=== PATIENT | male | born 1955 | race Caucasian/White ===

== ENCOUNTER 2017-01-20 11:42 | Inpatient (IN) ==
--- NOTE | 2017-01-20 12:43 | Emergency Department Note ---
Disposition Clinical Impression: Hyponatremia, Hyperbilirubinemia Ascites Qualifiers: Ascites type: other type Qualified Code(s): R18.8 - Other ascites Disposition: Admitted As Inpatient Condition: Critical SOB HPI - General Chief Complaint: ED Shortness of Breath/Dyspnea Stated Complaint: SOB, Fluid overload, weakness Time Seen by Provider: 01/20/17 12:23 Source: patient, family Limitations: no limitations Nursing Notes Reviewed: Yes Vital Signs Reviewed: Yes - History of Present Illness 61-year-old male with history of 6 beers per day drinking, presents with shortness of breath and abdominal swelling, also states he has bilateral lower extremity swelling. He states he has had worsening symptoms for the last 1 week. Denies fever chills shortness, weight loss, or chest pain. States that he may have gained 5 pounds in the last few weeks. Patient has no history of hepatitis that he knows of. He denies history of alcoholism but does report that he drinks daily. Denies hematuria dysuria, hematochezia or melenic stools. Pt Subjective Complaint: shortness of breath Onset (ago): week(s) (1) Context: recent illness Severity: mild Consistency/Duration: constant Improves with: nothing Worsens with: nothing - Related Data Home Medications Medication Instructions Recorded Confirmed Escitalopram [Lexapro] 20 mg PO DAILY 01/20/17 01/20/17 Losartan [Cozaar] 25 mg PO DAILY 01/20/17 01/20/17 Omeprazole [PriLOSEC] 40 mg PO DAILY 01/20/17 01/20/17 Thiamine HCl [Vitamin B-1] 50 mg PO DAILY 01/20/17 01/20/17 Allergies Allergy/AdvReac Type Severity Reaction Status Date / Time No Known Allergies Allergy Verified 08/21/16 11:02 Review of Systems: All systems were reviewed with historian and negative except as per below, or as documented in the HPI. Constitutional: Denies: fever, chills, weight changes CV: Denies: chest pain, palpitations, leg swelling Resp: Positive for dyspnea, negative for wheezes or hemoptysis GI: Acid for abdominal pain and abdominal swelling, positive for nausea, denies hematochezia denies melena Denies: dysuria, hematuria MSK: Denies: back pain, neck pain, extremity pain Skin: Denies: new rashes, new lesions Neuro: Denies: MOTT, weakness All systems ED: reviewed and negative except as stated. Past Medical History - Past Medical History Attestation: Yes The following information was validated with the patient. Source: patient Medical history: Reports: GERD, hyperlipidemia, hypertension Psychiatric history: Reports: anxiety, depression - Social History Smoking Status: Current every day smoker Smokeless Tobacco Status: No Alcohol use: Reports: heavy Drug use: Reports: none Physical Exam Constitutional: Middle-aged male appears older than stated age, in no acute distress, HEENT: NCAT, sclera icteric, PERRLA bilaterally, normal external ears bilaterally, nasal septum nondeviated, average dentition, MMM Neck: normal inspection, neck is supple, trachea midline, no JVD Resp: Breath sounds at the bases bilaterally CV: RRR, no m/g/r, Pulses +2 Rad, +2 DP/PT bilaterally, +3 pitting edema bilateral lower extremities. GI: Abdomen is severely distended, tympanic on percussion, hypoactive bowel sounds, mild tenderness to palpation diffusely. No rigidity or guarding. Back: Negative for flank pain bilaterally. Neuro: A&O3, CN II-XII grossly intact bilaterally, no gross motor or sensory deficits bilaterally MSK: normal inspection, bilateral UE and LE with normal ROM and no deformities Psych: normal mood, normal affect Skin: Evidence of bilateral erythematous venous stasis dermatitis/cellulitis, left leg greater than right leg. - General Limitations: no limitations General appearance: alert Course Course Narrative: 61-year-old male with acute onset over the last week of abdominal swelling and bilateral lower extremity swelling, suspect ascites from alcoholism, we will get hepatitis profile as well as hepatic panel, basic lab work EKG chest x-ray CT scan of abdomen. - Reevaluation(s) Reevaluation #1: Patient had severe hyponatremia with a sodium of 107, I didcall Dr. Duke, and he recommended placement of central line to start hypertonic saline, as well as give 40 mg IV Lasix. Reevaluation #2: CVC was placed successfully, post procedure chest x-ray confirms good placement , Dr. Duke and Dr. Singh did evaluate the patient at bedside, and agreed with the management plan, orders are placed with Dr. Duke for trending sodium every 2 hours, also for the hypertonic saline disorder was placed by Dr. smith, Dr. Pedraza agreed that they warranted ICU management at this time. Patient is currently stable time of ED disposition, we will get a CT scan in route to ICU Time: 15:45 Vital Signs Temperature 97.4 F L 01/20/17 12:16 Pulse Rate 93 01/20/17 12:16 Respiratory Rate 18 01/20/17 12:16 Blood Pressure 103/71 01/20/17 12:16 O2 Sat by Pulse Oximetry 100 01/20/17 12:16 Temperature 97.4 F L 01/20/17 12:16 Pulse Rate 84 01/20/17 13:39 Respiratory Rate 18 01/20/17 15:55 Blood Pressure 107/68 01/20/17 15:55 O2 Sat by Pulse Oximetry 100 01/20/17 13:39 Oxygen Delivery Oxygen Delivery Room Air Procedures - Central Line Placement Right IJ Central Line Inserted*: Yes Central Line Catheter Replacement*: Yes Central Line Insertion: emergent Consent Obtained: verbal consent Patient Placed on Monitor/Pulse Ox: Yes During the Procedure: clinician is wearing sterile gloves, cap, mask,& gown during insertion, sterile field and sterile technique are maintained, patient's face is covered with drape or mask and wearing a cap, everyone in room is wearing a mask Central Line Prep: Chlorhexidine scrub Prep the Procedure Site: apply chloraprep to the skin using a back and forth scrubbing motion, apply chloraprep for 30 seconds (upper body), 1-2 min ( femoral sites), drape the patient with a full body drape Local Anesthetic: lidocaine 1% Amount of anesthesia used (mL): 3 Ultrasound Used for Placement: Yes Central Line Lumen Inserted: triple Post Procedure: sutured in place, good blood return, all ports aspirated, flushed, capped, sterile dressing applied, guide wire removed and visualized, dressing is dated Post Procedure X-Ray: tip of catheter in good position, no pneumothorax seen Patient Tolerated Procedure: well, no complications Complications: none Name of Clinician Inserting Central Line: Dr. 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 - Differential Diagnosis Likely: congestive heart failure, pneumonia - Medical Records Medical records reviewed: Yes I reviewed the patient's medical records. - Lab Data Lab results reviewed: Yes I reviewed the patient's lab results. Result diagrams: 01/20/17 13:03 01/20/17 13:03 Lab Results 01/20/17 01/20/17 01/20/17 Range/Units 12:55 13:03 13:03 WBC 7.6 (4.3-11.1) K/mcL RBC 3.28 L (4.19-5.50) M/mcL Hgb 12.5 L (12.9-16.9) g/dL Hct 33.1 L (37.5-50.1) % MCV 100.9 H (83.0-100.0) fL MCH 38.1 H (28.0-33.3) pg MCHC 37.8 H (31.6-35.5) g/dL RDW 11.6 (11.5-14.5) % Plt Count 90 L (140-400) K/mcL MPV 10.6 (9.4-12.4) fL Immature Gran % 0.3 (0-4) % Seg Neutrophils % 86.1 % Lymphocytes % 7.2 % Monocytes % 6.2 % Eosinophils % 0.1 % Basophils % 0.1 % Neutrophils # 6.5 (1.6-8.9) K/mcL Lymphocytes # 0.6 (0.6-4.6) K/mcL Monocytes # 0.5 (0.0-1.3) K/mcL Eosinophils # 0.0 (0.0-0.6) K/mcL Basophils # 0.0 (0.0-0.2) K/mcL Platelet Estimate Slight Decrease L (Normal) Anisocytosis 1+ A (Not Present) PT (9.4-12.1) Seconds INR APTT (26.0-36.0) Seconds Sodium (136-145) mEq/L Potassium (3.5-4.5) mEq/L Chloride (98-109) mEq/L Carbon Dioxide (19-29) mEq/L BUN (8-26) mg/dL Creatinine (0.72-1.25) mg/dL Est GFR ( Amer) (> 60) Est GFR (Non-Af Amer) (> 60) BUN/Creatinine Ratio (6-26) Glucose (70-99) mg/dL Serum Osmolality (280-300) mOsm/kg Calculated Osmolality (280-300) Lactic Acid 1.3 (0.5-2.2) mmol/L Calcium (8.6-10.8) mg/dL Total Bilirubin 4.4 H (0.2-1.2) mg/dL Direct Bilirubin 3.2 H (0.0-0.5) mg/dL Indirect Bilirubin 1.2 (0.0-1.2) mg/dL AST 115 H (5-34) Units/L ALT 39 (0-55) Units/L Alkaline Phosphatase 604 H (38-126) Units/L Ammonia (18-72) mcmol/L Troponin I (0-0.03) ng/mL B-Natriuretic Peptide (0-100) pg/mL Serum Total Protein 6.2 (6.0-8.3) g/dL Albumin 2.1 L (3.5-5.0) g/dL Globulin 4.1 H (2.4-3.5) g/dL Albumin/Globulin Ratio 0.5 L (1.1-2.2) Urine Color (Yellow) Urine Clarity (Clear) Urine pH (5.0-8.0) pH Units Ur Specific Bath (1.010-1.025) Urine Protein (Neg-Trace) mg/dL Urine Glucose (UA) (Normal) mg/dL Urine Ketones (Negative) mg/dL Urine Blood (Negative) Urine Nitrite (Negative) Urine Bilirubin (Negative) Urine Urobilinogen (Normal) mg/dL Ur Leukocyte Esterase (Negative) Urine Microscopic RBC (0-3) per hpf Urine Microscopic WBC (0-3) per hpf Ur Squamous Epith Cells (None-Few) per lpf Urine Bacteria (None-Few) per hpf Hyaline Casts (None-Few) per lpf Ur Culture Indicated? (NO) Urine Osmolality (300-1090) mOsm/kg Urine Sodium mEq/L Hepatitis A IgM Ab (Nonreactive) Hep Bs Antigen (Nonreactive) Hep B Core IgM Ab (Nonreactive) Hepatitis C Ab Screen (Nonreactive) 01/20/17 01/20/17 01/20/17 Range/Units 13:03 13:03 13:03 WBC (4.3-11.1) K/mcL RBC (4.19-5.50) M/mcL Hgb (12.9-16.9) g/dL Hct (37.5-50.1) % MCV (83.0-100.0) fL MCH (28.0-33.3) pg MCHC (31.6-35.5) g/dL RDW (11.5-14.5) % Plt Count (140-400) K/mcL MPV (9.4-12.4) fL Immature Gran % (0-4) % Seg Neutrophils % % Lymphocytes % % Monocytes % % Eosinophils % % Basophils % % Neutrophils # (1.6-8.9) K/mcL Lymphocytes # (0.6-4.6) K/mcL Monocytes # (0.0-1.3) K/mcL Eosinophils # (0.0-0.6) K/mcL Basophils # (0.0-0.2) K/mcL Platelet Estimate (Normal) Anisocytosis (Not Present) PT 11.8 (9.4-12.1) Seconds INR 1.1 APTT 26.5 (26.0-36.0) Seconds Sodium 107 L* (136-145) mEq/L Potassium 4.7 H (3.5-4.5) mEq/L Chloride 76 L (98-109) mEq/L Carbon Dioxide 18 L (19-29) mEq/L BUN 13 (8-26) mg/dL Creatinine 1.50 H (0.72-1.25) mg/dL Est GFR ( Amer) 58 L (> 60) Est GFR (Non-Af Amer) 48 L (> 60) BUN/Creatinine Ratio 9 (6-26) Glucose 77 (70-99) mg/dL Serum Osmolality (280-300) mOsm/kg Calculated Osmolality 223 L (280-300) Lactic Acid (0.5-2.2) mmol/L Calcium 8.6 (8.6-10.8) mg/dL Total Bilirubin (0.2-1.2) mg/dL Direct Bilirubin (0.0-0.5) mg/dL Indirect Bilirubin (0.0-1.2) mg/dL AST (5-34) Units/L ALT (0-55) Units/L Alkaline Phosphatase (38-126) Units/L Ammonia (18-72) mcmol/L Troponin I 0.01 (0-0.03) ng/mL B-Natriuretic Peptide (0-100) pg/mL Serum Total Protein (6.0-8.3) g/dL Albumin (3.5-5.0) g/dL Globulin (2.4-3.5) g/dL Albumin/Globulin Ratio (1.1-2.2) Urine Color (Yellow) Urine Clarity (Clear) Urine pH (5.0-8.0) pH Units Ur Specific Bath (1.010-1.025) Urine Protein (Neg-Trace) mg/dL Urine Glucose (UA) (Normal) mg/dL Urine Ketones (Negative) mg/dL Urine Blood (Negative) Urine Nitrite (Negative) Urine Bilirubin (Negative) Urine Urobilinogen (Normal) mg/dL Ur Leukocyte Esterase (Negative) Urine Microscopic RBC (0-3) per hpf Urine Microscopic WBC (0-3) per hpf Ur Squamous Epith Cells (None-Few) per lpf Urine Bacteria (None-Few) per hpf Hyaline Casts (None-Few) per lpf Ur Culture Indicated? (NO) Urine Osmolality (300-1090) mOsm/kg Urine Sodium mEq/L Hepatitis A IgM Ab (Nonreactive) Hep Bs Antigen (Nonreactive) Hep B Core IgM Ab (Nonreactive) Hepatitis C Ab Screen (Nonreactive) 01/20/17 01/20/17 01/20/17 Range/Units 13:03 13:03 13:03 WBC (4.3-11.1) K/mcL RBC (4.19-5.50) M/mcL Hgb (12.9-16.9) g/dL Hct (37.5-50.1) % MCV (83.0-100.0) fL MCH (28.0-33.3) pg MCHC (31.6-35.5) g/dL RDW (11.5-14.5) % Plt Count (140-400) K/mcL MPV (9.4-12.4) fL Immature Gran % (0-4) % Seg Neutrophils % % Lymphocytes % % Monocytes % % Eosinophils % % Basophils % % Neutrophils # (1.6-8.9) K/mcL Lymphocytes # (0.6-4.6) K/mcL Monocytes # (0.0-1.3) K/mcL Eosinophils # (0.0-0.6) K/mcL Basophils # (0.0-0.2) K/mcL Platelet Estimate (Normal) Anisocytosis (Not Present) PT (9.4-12.1) Seconds INR APTT (26.0-36.0) Seconds Sodium (136-145) mEq/L Potassium (3.5-4.5) mEq/L Chloride (98-109) mEq/L Carbon Dioxide (19-29) mEq/L BUN (8-26) mg/dL Creatinine (0.72-1.25) mg/dL Est GFR ( Amer) (> 60) Est GFR (Non-Af Amer) (> 60) BUN/Creatinine Ratio (6-26) Glucose (70-99) mg/dL Serum Osmolality (280-300) mOsm/kg Calculated Osmolality (280-300) Lactic Acid (0.5-2.2) mmol/L Calcium (8.6-10.8) mg/dL Total Bilirubin (0.2-1.2) mg/dL Direct Bilirubin (0.0-0.5) mg/dL Indirect Bilirubin (0.0-1.2) mg/dL AST (5-34) Units/L ALT (0-55) Units/L Alkaline Phosphatase (38-126) Units/L Ammonia 21 (18-72) mcmol/L Troponin I (0-0.03) ng/mL B-Natriuretic Peptide 69 (0-100) pg/mL Serum Total Protein (6.0-8.3) g/dL Albumin (3.5-5.0) g/dL Globulin (2.4-3.5) g/dL Albumin/Globulin Ratio (1.1-2.2) Urine Color (Yellow) Urine Clarity (Clear) Urine pH (5.0-8.0) pH Units Ur Specific Bath (1.010-1.025) Urine Protein (Neg-Trace) mg/dL Urine Glucose (UA) (Normal) mg/dL Urine Ketones (Negative) mg/dL Urine Blood (Negative) Urine Nitrite (Negative) Urine Bilirubin (Negative) Urine Urobilinogen (Normal) mg/dL Ur Leukocyte Esterase (Negative) Urine Microscopic RBC (0-3) per hpf Urine Microscopic WBC (0-3) per hpf Ur Squamous Epith Cells (None-Few) per lpf Urine Bacteria (None-Few) per hpf Hyaline Casts (None-Few) per lpf Ur Culture Indicated? (NO) Urine Osmolality (300-1090) mOsm/kg Urine Sodium mEq/L Hepatitis A IgM Ab Nonreactive (Nonreactive) Hep Bs Antigen Nonreactive (Nonreactive) Hep B Core IgM Ab Nonreactive (Nonreactive) Hepatitis C Ab Screen Nonreactive (Nonreactive) 01/20/17 01/20/17 01/20/17 Range/Units 13:03 13:20 13:20 WBC (4.3-11.1) K/mcL RBC (4.19-5.50) M/mcL Hgb (12.9-16.9) g/dL Hct (37.5-50.1) % MCV (83.0-100.0) fL MCH (28.0-33.3) pg MCHC (31.6-35.5) g/dL RDW (11.5-14.5) % Plt Count (140-400) K/mcL MPV (9.4-12.4) fL Immature Gran % (0-4) % Seg Neutrophils % % Lymphocytes % % Monocytes % % Eosinophils % % Basophils % % Neutrophils # (1.6-8.9) K/mcL Lymphocytes # (0.6-4.6) K/mcL Monocytes # (0.0-1.3) K/mcL Eosinophils # (0.0-0.6) K/mcL Basophils # (0.0-0.2) K/mcL Platelet Estimate (Normal) Anisocytosis (Not Present) PT (9.4-12.1) Seconds INR APTT (26.0-36.0) Seconds Sodium (136-145) mEq/L Potassium (3.5-4.5) mEq/L Chloride (98-109) mEq/L Carbon Dioxide (19-29) mEq/L BUN (8-26) mg/dL Creatinine (0.72-1.25) mg/dL Est GFR ( Amer) (> 60) Est GFR (Non-Af Amer) (> 60) BUN/Creatinine Ratio (6-26) Glucose (70-99) mg/dL Serum Osmolality 232 L (280-300) mOsm/kg Calculated Osmolality (280-300) Lactic Acid (0.5-2.2) mmol/L Calcium (8.6-10.8) mg/dL Total Bilirubin (0.2-1.2) mg/dL Direct Bilirubin (0.0-0.5) mg/dL Indirect Bilirubin (0.0-1.2) mg/dL AST (5-34) Units/L ALT (0-55) Units/L Alkaline Phosphatase (38-126) Units/L Ammonia (18-72) mcmol/L Troponin I (0-0.03) ng/mL B-Natriuretic Peptide (0-100) pg/mL Serum Total Protein (6.0-8.3) g/dL Albumin (3.5-5.0) g/dL Globulin (2.4-3.5) g/dL Albumin/Globulin Ratio (1.1-2.2) Urine Color [place] A (Yellow) Urine Clarity Cloudy A (Clear) Urine pH 5.5 (5.0-8.0) pH Units Ur Specific Bath 1.019 (1.010-1.025) Urine Protein 30 H (Neg-Trace) mg/dL Urine Glucose (UA) 250 H (Normal) mg/dL Urine Ketones 15 H (Negative) mg/dL Urine Blood Negative (Negative) Urine Nitrite Negative (Negative) Urine Bilirubin Moderate H (Negative) Urine Urobilinogen Normal (Normal) mg/dL Ur Leukocyte Esterase Trace H (Negative) Urine Microscopic RBC 0-3 (0-3) per hpf Urine Microscopic WBC 0-3 (0-3) per hpf Ur Squamous Epith Cells Many H (None-Few) per lpf Urine Bacteria None Seen (None-Few) per hpf Hyaline Casts None Seen (None-Few) per lpf Ur Culture Indicated? YES A (NO) Urine Osmolality 357 (300-1090) mOsm/kg Urine Sodium < 20.0 mEq/L Hepatitis A IgM Ab (Nonreactive) Hep Bs Antigen (Nonreactive) Hep B Core IgM Ab (Nonreactive) Hepatitis C Ab Screen (Nonreactive) - Radiology Data Radiology results reviewed: Yes I reviewed the patient's radiology results. Chest X-Ray 01/20/17 15:12 IMPRESSION: 1. Right CVC tip in the mid to distal superior vena cava. 2. No pneumothorax. D/ / Ethan Rojas MD / Ethan Rojas MD Interpreting Provider: Ethan Rojas MD - EKG Data EKG attestation: Yes I reviewed and interpreted this EKG. EKG shows normal: Reports: sinus rhythm Rate: Reports: normal (A 9 bpm NH 148 QRS 87 QTc 420 limited by interference on V1 and V2. There was no ST segment elevation depressions or changes left axis) Rhythm: Reports: NSR [place]/QRS: Reports: normal, left axis deviation Interpretation: Reports: no acute changes
--- NOTE | 2017-01-20 12:47 | Emergency Department Note ---
Disposition Clinical Impression: Ascites, Hyponatremia, Hyperbilirubinemia Disposition: Admitted As Inpatient Condition: Critical General Adult HPI - General Chief complaint: ED Shortness of Breath/Dyspnea Stated complaint: SOB, Fluid overload, weakness Time Seen by Provider: 01/20/17 12:23 Source: patient, family Limitations: no limitations - History of Present Illness Pain Scale: 5 - Related Data Home Medications Medication Instructions Recorded Confirmed Escitalopram [Lexapro] 20 mg PO DAILY 01/20/17 01/20/17 Losartan [Cozaar] 25 mg PO DAILY 01/20/17 01/20/17 Omeprazole [PriLOSEC] 40 mg PO DAILY 01/20/17 01/20/17 Thiamine HCl [Vitamin B-1] 50 mg PO DAILY 01/20/17 01/20/17 Allergies Allergy/AdvReac Type Severity Reaction Status Date / Time No Known Allergies Allergy Verified 08/21/16 11:02 Past Medical History - Past Medical History Medical history: Reports: GERD, hyperlipidemia, hypertension Psychiatric history: Reports: anxiety, depression - Social History Smoking Status: Current every day smoker Smokeless Tobacco Status: No Alcohol use: Reports: heavy Drug use: Reports: none Physical Exam - General Limitations: no limitations General appearance: alert Course - Reevaluation(s) Reevaluation #1: I saw the patient with the resident, Dr. Zuniga. Patient presents with generalized weakness and he stating a lot of weight gain and enlargement of his belly dramatically over the past 2 weeks. Patient also looks a little bit short of breath. On examination he has a large amount of ascites. The lungs sound clear. There is edema to bilateral lower extremities and what appears to be some developing cellulitis as well. Patient has peeling flakes of skin all over his body. I have a strong suspicion of alcoholic cirrhosis with ascites. We are getting a workup going. We will check for other causes of weakness and shortness of breath as well. I suspect the patient will require admission to the hospital due to his inability to care for himself at home. Time: 12:43 Reevaluation #2: Laboratory shows severe hyponatremia. I think this is related to the ascites and cirrhosis. This certainly explains profound weakness. Patient's neurologic examination is otherwise okay. He clearly needs to be admitted to the hospital for management of his illness. We will consult nephrology for guidance on management of this hyponatremia. Time: 13:48 Vital Signs Temperature 97.4 F L 01/20/17 12:16 Pulse Rate 93 01/20/17 12:16 Respiratory Rate 18 01/20/17 12:16 Blood Pressure 103/71 01/20/17 12:16 O2 Sat by Pulse Oximetry 100 01/20/17 12:16 Temperature 98.3 F 01/23/17 07:47 Pulse Rate 91 01/23/17 10:00 Respiratory Rate 16 01/23/17 10:44 Blood Pressure 85/55 01/23/17 09:00 O2 Sat by Pulse Oximetry 96 01/23/17 10:44 Oxygen Delivery Oxygen Delivery Room Air Medical Decision Making - Lab Data Result diagrams: 01/23/17 03:35 01/23/17 03:35 Lab Results 01/20/17 01/20/17 01/20/17 Range/Units 00:05 12:55 13:03 WBC (4.3-11.1) K/mcL RBC (4.19-5.50) M/mcL Hgb (12.9-16.9) g/dL Hct (37.5-50.1) % MCV (83.0-100.0) fL MCH (28.0-33.3) pg MCHC (31.6-35.5) g/dL RDW (11.5-14.5) % Plt Count (140-400) K/mcL MPV (9.4-12.4) fL Immature Gran % (0-4) % Seg Neutrophils % % Lymphocytes % % Monocytes % % Eosinophils % % Basophils % % Neutrophils # (1.6-8.9) K/mcL Lymphocytes # (0.6-4.6) K/mcL Monocytes # (0.0-1.3) K/mcL Eosinophils # (0.0-0.6) K/mcL Basophils # (0.0-0.2) K/mcL Platelet Estimate (Normal) Anisocytosis (Not Present) PT (9.4-12.1) Seconds INR APTT (26.0-36.0) Seconds Sodium 109 L* (136-145) mEq/L Potassium (3.5-4.5) mEq/L Chloride (98-109) mEq/L Carbon Dioxide (19-29) mEq/L BUN (8-26) mg/dL Creatinine (0.72-1.25) mg/dL Est GFR ( Amer) (> 60) Est GFR (Non-Af Amer) (> 60) BUN/Creatinine Ratio (6-26) Glucose (70-99) mg/dL POC Glucose (58-89) Serum Osmolality (280-300) mOsm/kg Calculated Osmolality (280-300) Lactic Acid 1.3 (0.5-2.2) mmol/L Calcium (8.6-10.8) mg/dL Total Bilirubin 4.4 H (0.2-1.2) mg/dL Direct Bilirubin 3.2 H (0.0-0.5) mg/dL Indirect Bilirubin 1.2 (0.0-1.2) mg/dL AST 115 H (5-34) Units/L ALT 39 (0-55) Units/L Alkaline Phosphatase 604 H (38-126) Units/L Ammonia (18-72) mcmol/L Troponin I (0-0.03) ng/mL B-Natriuretic Peptide (0-100) pg/mL Serum Total Protein 6.2 (6.0-8.3) g/dL Albumin 2.1 L (3.5-5.0) g/dL Globulin 4.1 H (2.4-3.5) g/dL Albumin/Globulin Ratio 0.5 L (1.1-2.2) Amylase (25-125) Units/L Lipase (8-78) Units/L Urine Color (Yellow) Urine Clarity (Clear) Urine pH (5.0-8.0) pH Units Ur Specific [employer] (1.010-1.025) Urine Protein (Neg-Trace) mg/dL Urine Glucose (UA) (Normal) mg/dL Urine Ketones (Negative) mg/dL Urine Blood (Negative) Urine Nitrite (Negative) Urine Bilirubin (Negative) Urine Urobilinogen (Normal) mg/dL Ur Leukocyte Esterase (Negative) Urine Microscopic RBC (0-3) per hpf Urine Microscopic WBC (0-3) per hpf Ur Squamous Epith Cells (None-Few) per lpf Urine Bacteria (None-Few) per hpf Hyaline Casts (None-Few) per lpf Ur Culture Indicated? (NO) Urine Osmolality (300-1090) mOsm/kg Urine Sodium mEq/L Ethyl Alcohol (0-10) mg/dL Hepatitis A IgM Ab (Nonreactive) Hep Bs Antigen (Nonreactive) Hep B Core IgM Ab (Nonreactive) Hepatitis C Ab Screen (Nonreactive) 01/20/17 01/20/17 01/20/17 Range/Units 13:03 13:03 13:03 WBC 7.6 (4.3-11.1) K/mcL RBC 3.28 L (4.19-5.50) M/mcL Hgb 12.5 L (12.9-16.9) g/dL Hct 33.1 L (37.5-50.1) % MCV 100.9 H (83.0-100.0) fL MCH 38.1 H (28.0-33.3) pg MCHC 37.8 H (31.6-35.5) g/dL RDW 11.6 (11.5-14.5) % Plt Count 90 L (140-400) K/mcL MPV 10.6 (9.4-12.4) fL Immature Gran % 0.3 (0-4) % Seg Neutrophils % 86.1 % Lymphocytes % 7.2 % Monocytes % 6.2 % Eosinophils % 0.1 % Basophils % 0.1 % Neutrophils # 6.5 (1.6-8.9) K/mcL Lymphocytes # 0.6 (0.6-4.6) K/mcL Monocytes # 0.5 (0.0-1.3) K/mcL Eosinophils # 0.0 (0.0-0.6) K/mcL Basophils # 0.0 (0.0-0.2) K/mcL Platelet Estimate Slight Decrease L (Normal) Anisocytosis 1+ A (Not Present) PT 11.8 (9.4-12.1) Seconds INR 1.1 APTT 26.5 (26.0-36.0) Seconds Sodium 107 L* (136-145) mEq/L Potassium 4.7 H (3.5-4.5) mEq/L Chloride 76 L (98-109) mEq/L Carbon Dioxide 18 L (19-29) mEq/L BUN 13 (8-26) mg/dL Creatinine 1.50 H (0.72-1.25) mg/dL Est GFR ( Amer) 58 L (> 60) Est GFR (Non-Af Amer) 48 L (> 60) BUN/Creatinine Ratio 9 (6-26) Glucose 77 (70-99) mg/dL POC Glucose (58-89) Serum Osmolality (280-300) mOsm/kg Calculated Osmolality 223 L (280-300) Lactic Acid (0.5-2.2) mmol/L Calcium 8.6 (8.6-10.8) mg/dL Total Bilirubin (0.2-1.2) mg/dL Direct Bilirubin (0.0-0.5) mg/dL Indirect Bilirubin (0.0-1.2) mg/dL AST (5-34) Units/L ALT (0-55) Units/L Alkaline Phosphatase (38-126) Units/L Ammonia (18-72) mcmol/L Troponin I (0-0.03) ng/mL B-Natriuretic Peptide (0-100) pg/mL Serum Total Protein (6.0-8.3) g/dL Albumin (3.5-5.0) g/dL Globulin (2.4-3.5) g/dL Albumin/Globulin Ratio (1.1-2.2) Amylase (25-125) Units/L Lipase (8-78) Units/L Urine Color (Yellow) Urine Clarity (Clear) Urine pH (5.0-8.0) pH Units Ur Specific [employer] (1.010-1.025) Urine Protein (Neg-Trace) mg/dL Urine Glucose (UA) (Normal) mg/dL Urine Ketones (Negative) mg/dL Urine Blood (Negative) Urine Nitrite (Negative) Urine Bilirubin (Negative) Urine Urobilinogen (Normal) mg/dL Ur Leukocyte Esterase (Negative) Urine Microscopic RBC (0-3) per hpf Urine Microscopic WBC (0-3) per hpf Ur Squamous Epith Cells (None-Few) per lpf Urine Bacteria (None-Few) per hpf Hyaline Casts (None-Few) per lpf Ur Culture Indicated? (NO) Urine Osmolality (300-1090) mOsm/kg Urine Sodium mEq/L Ethyl Alcohol (0-10) mg/dL Hepatitis A IgM Ab (Nonreactive) Hep Bs Antigen (Nonreactive) Hep B Core IgM Ab (Nonreactive) Hepatitis C Ab Screen (Nonreactive) 01/20/17 01/20/17 01/20/17 Range/Units 13:03 13:03 13:03 WBC (4.3-11.1) K/mcL RBC (4.19-5.50) M/mcL Hgb (12.9-16.9) g/dL Hct (37.5-50.1) % MCV (83.0-100.0) fL MCH (28.0-33.3) pg MCHC (31.6-35.5) g/dL RDW (11.5-14.5) % Plt Count (140-400) K/mcL MPV (9.4-12.4) fL Immature Gran % (0-4) % Seg Neutrophils % % Lymphocytes % % Monocytes % % Eosinophils % % Basophils % % Neutrophils # (1.6-8.9) K/mcL Lymphocytes # (0.6-4.6) K/mcL Monocytes # (0.0-1.3) K/mcL Eosinophils # (0.0-0.6) K/mcL Basophils # (0.0-0.2) K/mcL Platelet Estimate (Normal) Anisocytosis (Not Present) PT (9.4-12.1) Seconds INR APTT (26.0-36.0) Seconds Sodium (136-145) mEq/L Potassium (3.5-4.5) mEq/L Chloride (98-109) mEq/L Carbon Dioxide (19-29) mEq/L BUN (8-26) mg/dL Creatinine (0.72-1.25) mg/dL Est GFR ( Amer) (> 60) Est GFR (Non-Af Amer) (> 60) BUN/Creatinine Ratio (6-26) Glucose (70-99) mg/dL POC Glucose (58-89) Serum Osmolality (280-300) mOsm/kg Calculated Osmolality (280-300) Lactic Acid (0.5-2.2) mmol/L Calcium (8.6-10.8) mg/dL Total Bilirubin (0.2-1.2) mg/dL Direct Bilirubin (0.0-0.5) mg/dL Indirect Bilirubin (0.0-1.2) mg/dL AST (5-34) Units/L ALT (0-55) Units/L Alkaline Phosphatase (38-126) Units/L Ammonia 21 (18-72) mcmol/L Troponin I 0.01 (0-0.03) ng/mL B-Natriuretic Peptide 69 (0-100) pg/mL Serum Total Protein (6.0-8.3) g/dL Albumin (3.5-5.0) g/dL Globulin (2.4-3.5) g/dL Albumin/Globulin Ratio (1.1-2.2) Amylase (25-125) Units/L Lipase (8-78) Units/L Urine Color (Yellow) Urine Clarity (Clear) Urine pH (5.0-8.0) pH Units Ur Specific [employer] (1.010-1.025) Urine Protein (Neg-Trace) mg/dL Urine Glucose (UA) (Normal) mg/dL Urine Ketones (Negative) mg/dL Urine Blood (Negative) Urine Nitrite (Negative) Urine Bilirubin (Negative) Urine Urobilinogen (Normal) mg/dL Ur Leukocyte Esterase (Negative) Urine Microscopic RBC (0-3) per hpf Urine Microscopic WBC (0-3) per hpf Ur Squamous Epith Cells (None-Few) per lpf Urine Bacteria (None-Few) per hpf Hyaline Casts (None-Few) per lpf Ur Culture Indicated? (NO) Urine Osmolality (300-1090) mOsm/kg Urine Sodium mEq/L Ethyl Alcohol (0-10) mg/dL Hepatitis A IgM Ab (Nonreactive) Hep Bs Antigen (Nonreactive) Hep B Core IgM Ab (Nonreactive) Hepatitis C Ab Screen (Nonreactive) 01/20/17 01/20/17 01/20/17 Range/Units 13:03 13:03 13:20 WBC (4.3-11.1) K/mcL RBC (4.19-5.50) M/mcL Hgb (12.9-16.9) g/dL Hct (37.5-50.1) % MCV (83.0-100.0) fL MCH (28.0-33.3) pg MCHC (31.6-35.5) g/dL RDW (11.5-14.5) % Plt Count (140-400) K/mcL MPV (9.4-12.4) fL Immature Gran % (0-4) % Seg Neutrophils % % Lymphocytes % % Monocytes % % Eosinophils % % Basophils % % Neutrophils # (1.6-8.9) K/mcL Lymphocytes # (0.6-4.6) K/mcL Monocytes # (0.0-1.3) K/mcL Eosinophils # (0.0-0.6) K/mcL Basophils # (0.0-0.2) K/mcL Platelet Estimate (Normal) Anisocytosis (Not Present) PT (9.4-12.1) Seconds INR APTT (26.0-36.0) Seconds Sodium (136-145) mEq/L Potassium (3.5-4.5) mEq/L Chloride (98-109) mEq/L Carbon Dioxide (19-29) mEq/L BUN (8-26) mg/dL Creatinine (0.72-1.25) mg/dL Est GFR ( Amer) (> 60) Est GFR (Non-Af Amer) (> 60) BUN/Creatinine Ratio (6-26) Glucose (70-99) mg/dL POC Glucose (58-89) Serum Osmolality 232 L (280-300) mOsm/kg Calculated Osmolality (280-300) Lactic Acid (0.5-2.2) mmol/L Calcium (8.6-10.8) mg/dL Total Bilirubin (0.2-1.2) mg/dL Direct Bilirubin (0.0-0.5) mg/dL Indirect Bilirubin (0.0-1.2) mg/dL AST (5-34) Units/L ALT (0-55) Units/L Alkaline Phosphatase (38-126) Units/L Ammonia (18-72) mcmol/L Troponin I (0-0.03) ng/mL B-Natriuretic Peptide (0-100) pg/mL Serum Total Protein (6.0-8.3) g/dL Albumin (3.5-5.0) g/dL Globulin (2.4-3.5) g/dL Albumin/Globulin Ratio (1.1-2.2) Amylase (25-125) Units/L Lipase (8-78) Units/L Urine Color [place] A (Yellow) Urine Clarity Cloudy A (Clear) Urine pH 5.5 (5.0-8.0) pH Units Ur Specific [employer] 1.019 (1.010-1.025) Urine Protein 30 H (Neg-Trace) mg/dL Urine Glucose (UA) 250 H (Normal) mg/dL Urine Ketones 15 H (Negative) mg/dL Urine Blood Negative (Negative) Urine Nitrite Negative (Negative) Urine Bilirubin Moderate H (Negative) Urine Urobilinogen Normal (Normal) mg/dL Ur Leukocyte Esterase Trace H (Negative) Urine Microscopic RBC 0-3 (0-3) per hpf Urine Microscopic WBC 0-3 (0-3) per hpf Ur Squamous Epith Cells Many H (None-Few) per lpf Urine Bacteria None Seen (None-Few) per hpf Hyaline Casts None Seen (None-Few) per lpf Ur Culture Indicated? YES A (NO) Urine Osmolality (300-1090) mOsm/kg Urine Sodium mEq/L Ethyl Alcohol (0-10) mg/dL Hepatitis A IgM Ab Nonreactive (Nonreactive) Hep Bs Antigen Nonreactive (Nonreactive) Hep B Core IgM Ab Nonreactive (Nonreactive) Hepatitis C Ab Screen Nonreactive (Nonreactive) 01/20/17 01/20/17 01/20/17 Range/Units 13:20 16:49 16:57 WBC (4.3-11.1) K/mcL RBC (4.19-5.50) M/mcL Hgb (12.9-16.9) g/dL Hct (37.5-50.1) % MCV (83.0-100.0) fL MCH (28.0-33.3) pg MCHC (31.6-35.5) g/dL RDW (11.5-14.5) % Plt Count (140-400) K/mcL MPV (9.4-12.4) fL Immature Gran % (0-4) % Seg Neutrophils % % Lymphocytes % % Monocytes % % Eosinophils % % Basophils % % Neutrophils # (1.6-8.9) K/mcL Lymphocytes # (0.6-4.6) K/mcL Monocytes # (0.0-1.3) K/mcL Eosinophils # (0.0-0.6) K/mcL Basophils # (0.0-0.2) K/mcL Platelet Estimate (Normal) Anisocytosis (Not Present) PT (9.4-12.1) Seconds INR APTT (26.0-36.0) Seconds Sodium 106 L* (136-145) mEq/L Potassium (3.5-4.5) mEq/L Chloride (98-109) mEq/L Carbon Dioxide (19-29) mEq/L BUN (8-26) mg/dL Creatinine (0.72-1.25) mg/dL Est GFR ( Amer) (> 60) Est GFR (Non-Af Amer) (> 60) BUN/Creatinine Ratio (6-26) Glucose (70-99) mg/dL POC Glucose 79 (58-89) Serum Osmolality (280-300) mOsm/kg Calculated Osmolality (280-300) Lactic Acid (0.5-2.2) mmol/L Calcium (8.6-10.8) mg/dL Total Bilirubin (0.2-1.2) mg/dL Direct Bilirubin (0.0-0.5) mg/dL Indirect Bilirubin (0.0-1.2) mg/dL AST (5-34) Units/L ALT (0-55) Units/L Alkaline Phosphatase (38-126) Units/L Ammonia (18-72) mcmol/L Troponin I (0-0.03) ng/mL B-Natriuretic Peptide (0-100) pg/mL Serum Total Protein (6.0-8.3) g/dL Albumin (3.5-5.0) g/dL Globulin (2.4-3.5) g/dL Albumin/Globulin Ratio (1.1-2.2) Amylase (25-125) Units/L Lipase (8-78) Units/L Urine Color (Yellow) Urine Clarity (Clear) Urine pH (5.0-8.0) pH Units Ur Specific [employer] (1.010-1.025) Urine Protein (Neg-Trace) mg/dL Urine Glucose (UA) (Normal) mg/dL Urine Ketones (Negative) mg/dL Urine Blood (Negative) Urine Nitrite (Negative) Urine Bilirubin (Negative) Urine Urobilinogen (Normal) mg/dL Ur Leukocyte Esterase (Negative) Urine Microscopic RBC (0-3) per hpf Urine Microscopic WBC (0-3) per hpf Ur Squamous Epith Cells (None-Few) per lpf Urine Bacteria (None-Few) per hpf Hyaline Casts (None-Few) per lpf Ur Culture Indicated? (NO) Urine Osmolality 357 (300-1090) mOsm/kg Urine Sodium < 20.0 mEq/L Ethyl Alcohol (0-10) mg/dL Hepatitis A IgM Ab (Nonreactive) Hep Bs Antigen (Nonreactive) Hep B Core IgM Ab (Nonreactive) Hepatitis C Ab Screen (Nonreactive) 01/20/17 Range/Units 16:57 WBC (4.3-11.1) K/mcL RBC (4.19-5.50) M/mcL Hgb (12.9-16.9) g/dL Hct (37.5-50.1) % MCV (83.0-100.0) fL MCH (28.0-33.3) pg MCHC (31.6-35.5) g/dL RDW (11.5-14.5) % Plt Count (140-400) K/mcL MPV (9.4-12.4) fL Immature Gran % (0-4) % Seg Neutrophils % % Lymphocytes % % Monocytes % % Eosinophils % % Basophils % % Neutrophils # (1.6-8.9) K/mcL Lymphocytes # (0.6-4.6) K/mcL Monocytes # (0.0-1.3) K/mcL Eosinophils # (0.0-0.6) K/mcL Basophils # (0.0-0.2) K/mcL Platelet Estimate (Normal) Anisocytosis (Not Present) PT (9.4-12.1) Seconds INR APTT (26.0-36.0) Seconds Sodium (136-145) mEq/L Potassium (3.5-4.5) mEq/L Chloride (98-109) mEq/L Carbon Dioxide (19-29) mEq/L BUN (8-26) mg/dL Creatinine (0.72-1.25) mg/dL Est GFR ( Amer) (> 60) Est GFR (Non-Af Amer) (> 60) BUN/Creatinine Ratio (6-26) Glucose (70-99) mg/dL POC Glucose (58-89) Serum Osmolality (280-300) mOsm/kg Calculated Osmolality (280-300) Lactic Acid (0.5-2.2) mmol/L Calcium (8.6-10.8) mg/dL Total Bilirubin (0.2-1.2) mg/dL Direct Bilirubin (0.0-0.5) mg/dL Indirect Bilirubin (0.0-1.2) mg/dL AST (5-34) Units/L ALT (0-55) Units/L Alkaline Phosphatase (38-126) Units/L Ammonia (18-72) mcmol/L Troponin I (0-0.03) ng/mL B-Natriuretic Peptide (0-100) pg/mL Serum Total Protein (6.0-8.3) g/dL Albumin (3.5-5.0) g/dL Globulin (2.4-3.5) g/dL Albumin/Globulin Ratio (1.1-2.2) Amylase 57 (25-125) Units/L Lipase 63 (8-78) Units/L Urine Color (Yellow) Urine Clarity (Clear) Urine pH (5.0-8.0) pH Units Ur Specific [employer] (1.010-1.025) Urine Protein (Neg-Trace) mg/dL Urine Glucose (UA) (Normal) mg/dL Urine Ketones (Negative) mg/dL Urine Blood (Negative) Urine Nitrite (Negative) Urine Bilirubin (Negative) Urine Urobilinogen (Normal) mg/dL Ur Leukocyte Esterase (Negative) Urine Microscopic RBC (0-3) per hpf Urine Microscopic WBC (0-3) per hpf Ur Squamous Epith Cells (None-Few) per lpf Urine Bacteria (None-Few) per hpf Hyaline Casts (None-Few) per lpf Ur Culture Indicated? (NO) Urine Osmolality (300-1090) mOsm/kg Urine Sodium mEq/L Ethyl Alcohol < 10 (0-10) mg/dL Hepatitis A IgM Ab (Nonreactive) Hep Bs Antigen (Nonreactive) Hep B Core IgM Ab (Nonreactive) Hepatitis C Ab Screen (Nonreactive) Attestation Statement - Attestation Attestation: I, Dr. Geiger, examined this patient [id number] and my medical decision- making was reviewed with Dr. Zuniga, Resident Physician. I agree with the documented findings, disposition and treatment plan as described except to the extent set forth below. Please see my progress notes for details.
[2017-01-20 13:24] LABS: INR 1.1; Prothrombin Time 11.8 Seconds (9.4-12.1)
[2017-01-20 13:27] LABS: Activated Partial Thrombo Time 26.5 Seconds (26.0-36.0)
[2017-01-20 13:29] LABS: Calcium 8.6 mg/dL (8.6-10.8); Potassium 4.7 mEq/L (3.5-4.5)
[2017-01-20 13:31] LABS: Albumin 2.1 g/dL (3.5-5.0); Albumin/Globulin Ratio 0.5 (1.1-2.2); Bilirubin,Direct 3.2 mg/dL (0.0-0.5); Bilirubin,Indirect 1.2 mg/dL (0.0-1.2); Bilirubin,Total 4.4 mg/dL (0.2-1.2); Globulin 4.1 g/dL (2.4-3.5); Total Protein 6.2 g/dL (6.0-8.3)
[2017-01-20] MEDS ORDERED: 0.9 % Sodium Chloride 1,000 ML IV ONE (13:33)
[2017-01-20 13:43] LABS: Basophils % 0.1 %; Eosinophils % 0.1 %; Hemoglobin 12.5 g/dL (12.9-16.9)
[2017-01-20] MEDS ORDERED: Furosemide 40 MG/4 ML VIAL IVP ONE (13:49)
[2017-01-20] MEDS ORDERED: *HR* 3% Sodium Chloride 500 ML IV.SOLN IVC ONE (13:52)
[2017-01-20 13:57] LABS: Hepatitis A Antibody IgM Nonreactive (Nonreactive); Hepatitis B Core IgM Nonreactive (Nonreactive); Hepatitis B Surface Antigen Nonreactive (Nonreactive); Hepatitis C Virus Antibody Nonreactive (Nonreactive)
[2017-01-20 14:14] LABS: Hematocrit 33.1 % (37.5-50.1); Immature Granulocytes % 0.3 % (0-4); Lymphocytes # 0.6 K/mcL (0.6-4.6); Lymphocytes % 7.2 %; Mean Corpuscular Hemoglobin 38.1 pg (28.0-33.3); Mean Corpuscular Volume 100.9 fL (83.0-100.0); Mean Platelet Volume 10.6 fL (9.4-12.4); Monocytes # 0.5 K/mcL (0.0-1.3); Monocytes % 6.2 %; Red Blood Count 3.28 M/mcL (4.19-5.50); Red Cell Distribution Width 11.6 % (11.5-14.5); Segmented Neutrophils % 86.1 %
--- NOTE | 2017-01-20 14:25 | Nephrology Consult Note ---
Date of Encounter: 01/20/17 Time of Encounter: 14:15 Assessment and Plan (1) Hyponatremia Current Visit: Yes Status: Acute Critically low. Suspect multifactorial etiology to reach such a low level. With the available data thus far, I suspect he might chronically be hyponatremic ( perhaps from Alcoholism -- though his baseline PNa is not immediately available to me), plus with his worsening liver disease and hypervolemic volume status, all these factors could be contributing to his significantly severe hyponatremia. He also has c/o increased nausea, so there could be a pre-prenal component, but since he has so much edema, I do not recommend giving 0.9% saline , which potentially could exacerbate the hyponatremia if there is an SIADH component. I appreciate the ER in paging me first before giving IVF. First we should check U Na, U Osmo, TSH, and then start 3% 100mL over 3 hours (he is not seizing at this time). He will need a CVC for the 3%. Additionally, since her hypervolemia is likely playing a major role in the hyponatremia, I recommend giving Lasix 40mg IV x1. Repeat PNa every 2 hours to help slowly, safely correct it by about 6-8 mEq in the first 24hr (so by 2pm on 01/21, he should be no more than 114 on the PNa. Depending upon his initial response to the 3% and Lasix, will dictate the next step. Please request lab records from his PCP Zulema Araujo to obtain a baseline PNa and SCr. Daily weights. Fluid restriction for 1.2L per day. Thank you for consulting the [facility] group. Please feel free to page me with any questions. (2) Elevated serum creatinine Current Visit: Yes Status: Acute Without baseline labs, it's not clear if this is an PHI vs CKD vs PHI on CKD. Will trend his labs, and if persistently elevated, this could be stage III CKD. Follow a renal protective strategy: dose renally cleared Rx by GFR, avoid NSAIDs , Bactrim, Contrast as able Check renal U/S, and CKD plus PHI work up. Request medical records from his PCP. (3) Ascites Current Visit: Yes Status: Acute Consider cirrhosis work up. May need a paracentesis at some point. Sometimes tight abd pressure can compress the renal veins leading to an elevated SCr. Qualifiers: Ascites type: other type Qualified Code(s): R18.8 - Other ascites History of Present Illness - Reason for Consult Consult date: 01/20/17 Chronic Kidney Disease, hyponatremia Requesting physician: Jesse Geiger - Chief Complaint Hyponatremia, Edema/Ascites, Elevated SCr - History of Present Illness Milton Hilliard is a very pleasant 61 y/o gentleman with a pmh of alcohol use, prior clavicular dislocation and 10-day onset of Nausea, abd and LE swelling. 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 His PCP is Zulema Araujo. He affirmed some nausea, but no diarrhea. His abd is generally painful from the swelling but without reported palliative or provocative factors. He denied NSAID use. No FHx of ESRD was reported. He was in the middle of a CVC procedure during me interview and exam. Past Med Surg Social Fam HX - Past Medical History Medical history: GERD, hyperlipidemia, hypertension Psychiatric history: anxiety, depression - Social History Smoking Status: Current every day smoker Smokeless Tobacco Status: No Alcohol use: heavy Drug use: none Medications and Allergies Escitalopram [Lexapro] 20 mg PO DAILY 01/20/17 [History] Losartan [Cozaar] 25 mg PO DAILY 01/20/17 [History] Omeprazole [PriLOSEC] 40 mg PO DAILY 01/20/17 [History] Thiamine HCl [Vitamin B-1] 50 mg PO DAILY 01/20/17 [History] Allergies No Known Allergies Allergy (Verified 08/21/16 11:02) Review of Systems All Systems: reviewed and no additional remarkable complaints except as stated Exam - Vital Signs Vital signs: Initial Vital Signs Temp Pulse Resp BP Pulse Ox 97.4 F L 93 18 103/71 100 01/20/17 12:16 01/20/17 12:16 01/20/17 12:16 01/20/17 12:16 01/20/17 12:16 Vital Signs - Last 8 Hours Temp Pulse Resp BP Pulse Ox 01/20/17 13:39 84 18 153/82 100 01/20/17 12:16 97.4 F L 93 18 103/71 100 Intake and Output 01/19/17 01/20/17 01/20/17 23:59 07:59 15:59 Other: Weight 113.398 kg Patient Weight 01/20/17 23:59 Weight 113.398 kg - General Appearance General appearance: cachectic, moderate distress, chronically ill, fatigue, frail EENT: ATNC Respiratory: clear Cardiology: edema (2+ pretibial pitting edema up to the pretibials b/l), regular rate, regular rhythm, normal S1, normal S2 Gastrointestinal: no tenderness, no guarding, distended Integumentary: erythema, hyperpigmentation, chronic venous stasis Neurologic: asterixis, alert and oriented x3 (but slowed processing/conversation ) Musculoskeletal: deformities (b/l clavicular dislocations) Psychiatric: cooperative Results - Lab Results 01/20/17 13:03 01/20/17 13:03 Most recent lab results Calcium 8.6 mg/dL (8.6-10.8) 01/20/17 13:03 I reviewed the above auto-generated labs, including meds, PMH, PSH, vitals, labs , and available progress notes. No baseline SCr, PNa though are currently available. Consult Discharge Plan - Plan Referrals: Vane Araujo, [facility] [Primary Care Provider] -
[2017-01-20 14:26] LABS: Mean Corpuscular HGB Conc 37.8 g/dL (31.6-35.5); Neutrophils # 6.5 K/mcL (1.6-8.9); Platelet Count 90 K/mcL (140-400)
[2017-01-20 14:29] LABS: Anisocytosis 1+ (Not Present); Platelet Estimate Slight Decrease (Normal)
[2017-01-20 15:33] LABS: Bilirubin,Urine Moderate (Negative); Blood,Urine Negative (Negative); Clarity,Urine Cloudy (Clear); Color,Urine Orange (Yellow); Glucose,Urine (UA) 250 mg/dL (Normal); Ketones,Urine 15 mg/dL (Negative); Leukocyte Esterase,Urine Trace (Negative); Nitrite,Urine Negative (Negative); PH,Urine 5.5 pH Units (5.0-8.0); Protein,Urine 30 mg/dL (Neg-Trace); Specific Gravity,Urine 1.019 (1.010-1.025); Urobilinogen,Urine Normal (Normal)
[2017-01-20 15:38] LABS: Bacteria,Urine None Seen per hpf (None-Few); Hyaline Casts,Urine None Seen per lpf (None-Few); Squamous Epithelial Cell,Urine Many per lpf (None-Few); WBC,Urine 0-3 per hpf (0-3)
[2017-01-20 15:48] LABS: RBC,Urine 0-3 per hpf (0-3)
--- NOTE | 2017-01-20 16:08 | Pulmonology History & Physical ---
<Rahul Baker - Last Filed: 01/20/17 17:50> Date of Encounter: 01/20/17 Time of Encounter: 15:30 Assessment and Plan (1) Hyponatremia Current visit: Yes Status: Acute Patient has hypervolemic hyponatremia, with sodium at 107. He is asymptomatic at this time, and with patient history of beer consumption this could be related to beer potomania, and chronic hyponatremia. Nephrology was consulted and appreciate recommendations for continued management /care We will start 3% sodium chloride at 30 mL/hour We will repeat sodium level every 2 hour Try not to correct sodium faster than 10 mL per hour, and closer to 8 mL per hour if possible Will institute to 1.5 L fluid restriction We will monitor sodium level with 3% NaCl to determine whether to proceed with further Lasix (2) Dyspnea Current visit: Yes Status: Acute Patient reports increased shortness of breath for the past couple weeks, resulting in exertional dyspnea preventing him from even getting out of the chair. He does report some orthopnea (to 3 pillows) that he reports goes away after a couple minutes of lying down flat. He does report that he has been having increased abdominal swelling in the past week and a half, likely preventing full breaths. Chest x-ray did not show signs concerning for pneumonia. We will supplement oxygen as needed with nasal cannula or BiPAP, will wean as tolerated Patient received 40 mg Lasix in the emergency room, will hold additional Lasix until reevaluation of patient's sodium Qualifiers: Dyspnea type: dyspnea on exertion Qualified Code(s): R06.09 - Other forms of dyspnea (3) History of alcohol abuse Current visit: Yes Status: Acute Patient reports drinking up to 12 beers a day, with reduction in beer consumption in the past 5 years. He reports drinking only 1-2 beers a day down. Abdomen is distended with fluid wave present. No caput medusae or angiomata observed. We will give banana bag CIWA protocol with Ativan, assess neurological status every 4 hours We will obtain ammonia, amylase, lipase, PT/INR, PTT We will consider GI consult (4) Elevated serum creatinine Current visit: Yes Status: Acute Patient serum creatinine at 1.5 with estimated GFR of 48. No baseline labs seen. Last creatinine was performed in 2011 and was 1.18 at that time. Current elevation in creatinine could be chronic or could be related to current fluid status and hyponatremia. Nephrology is consulted and appreciate recommendations for continued management/ care We will avoid nephrotoxic agents We will hold Lasix currently and reassess after return of sodium (5) Hyperbilirubinemia Current visit: Yes Status: Acute (6) DVT prophylaxis Current visit: Yes Status: Acute GI prophylaxis: Pantoprazole DVT prophylaxis: Heparin Neuro/sedation: History of alcohol abuse, CIDE protocol in place. Will monitor closely Cardiovascular: Currently normotensive, no concerns at this time Pulmonary: Patient complaining of shortness of breath, possibly related to ascites, no sign of lung disease on chest x-ray. Will supplement oxygen, DuoNeb treatments Renal: Elevated serum creatinine, unsure if chronic versus acute. Will avoid nephrotoxic agents GI: Patient has history of heavy alcohol abuse, currently has ascites. Could be related to alcoholic liver disease. Heme: No concerns this time ID: No concerns this time Endocrine: Receiving banana bag for potential malnutrition given on-call abuse Fluids/electrolytes: Hyponatremia with sodium at 107. Will receive 3% sodium chloride, fluid restriction, will reevaluate need for Lasix Skin: Chronic stasis dermatitis, dry/flaky skin, erythema lower extremities, open wound on left field Disposition: Guarded CODE STATUS: Full code History of Present Illness Chief complaint: Hyponatremia and shortness of breath HPI: Mr. Hilliard is a 61 year old male with prior medical history significant for depression, anxiety GERD, hyperlipidemia, and hypertension who came to the emergency room because of increased shortness of breath and weakness. He states he has had progressively worsening exertional dyspnea and dyspnea in general for several weeks now as well as weakness with onset 3 days ago. He states this got to the point or takes him 45 minutes to get out of his chair. He reports that prior to this he has had a nonproductive cough for the past several weeks which sometimes results in some posttussive emesis. In this timeframe he also reports having increased abdominal swelling, but does not report any abdominal discomfort. He does report recent weight came up 13 pounds over the past couple months. He reports procedure drinking up to 12 beers a day, but over the past 5 years is reduced his quantity to about 2 beers a day. He has never previously seen a lining presser. At presentation to the emergency room is found to have a sodium level of 107, but no reports of seizure activity. Past Med Surg Social Fam HX - Past Medical History Medical history: GERD, hyperlipidemia, hypertension Psychiatric history: anxiety, depression - Social History Smoking Status: Current every day smoker Smokeless Tobacco Status: No Alcohol use: heavy Drug use: none Medications and Allergies Escitalopram [Lexapro] 20 mg PO DAILY 01/20/17 [History] Losartan [Cozaar] 25 mg PO DAILY 01/20/17 [History] Omeprazole [PriLOSEC] 40 mg PO DAILY 01/20/17 [History] Thiamine HCl [Vitamin B-1] 50 mg PO DAILY 01/20/17 [History] Allergies No Known Allergies Allergy (Verified 08/21/16 11:02) - Constitutional Constitutional: lethargy, weakness, weight gain, no chills, no fever(s), no night sweats - EENT Nose, mouth and throat: no nasal congestion, no sore throat - Cardiovascular Cardiovascular: dyspnea, dyspnea on exertion, edema, orthopnea (2-3 pillows), no chest pain - Respiratory Respiratory: cough, dyspnea, pain on inspirtation, no hemoptysis, no pain with cough - Gastrointestinal Gastrointestinal: abdominal pain (Mild, related to swelling), nausea (With excessive coughing), no hematemesis, no hematochezia, no melena, no vomiting - Musculoskeletal Musculoskeletal: weakness - Integumentary Integumentary: erythema, jaundice - Neurological Neurological: abnormal movements, restless legs, weakness, no confusion, no dizziness, no tingling Physical Examination Vital Signs: Vital Signs, Last 4 Hours Resp BP 01/20/17 15:55 18 107/68 General appearance: no acute distress, alert, lethargic Eyes: icteric ENT: oropharynx moist Neck: supple Effort: normal Inspection: normal Auscultation: bilateral: clear Cardiovascular: regular rate and rhythm Gastrointestinal: normoactive bowel sounds, non-tender, other (Distended, no guarding, fluid wave present, no caput medusa) Integumentary: other (Jaundice, no angiomyoma observed, chronic dermatitis lower extremities, peeling skin diffusely) Extremities: no clubbing, pink and warm, pulses normal, edema (1-2+ bilateral), other (Open wound, draining serous fluid on left lower extremity) Musculoskeletal: no deformities normal mental status, non-focal exam, pupils equal and round mood appropriate, affect normal Results - Laboratory Findings CBC and BMP: 01/20/17 13:03 01/20/17 13:03 PT/INR, D-dimer PT 11.8 Seconds (9.4-12.1) 01/20/17 13:03 Abnormal lab findings: Abnormal lab results RBC 3.28 M/mcL (4.19-5.50) L 01/20/17 13:03 Hgb 12.5 g/dL (12.9-16.9) L 01/20/17 13:03 Hct 33.1 % (37.5-50.1) L 01/20/17 13:03 MCV 100.9 fL (83.0-100.0) H 01/20/17 13:03 MCH 38.1 pg (28.0-33.3) H 01/20/17 13:03 MCHC 37.8 g/dL (31.6-35.5) H 01/20/17 13:03 Plt Count 90 K/mcL (140-400) L 01/20/17 13:03 Platelet Estimate Slight Decrease (Normal) L 01/20/17 13:03 Anisocytosis 1+ (Not Present) A 01/20/17 13:03 Sodium 107 mEq/L (136-145) L* 01/20/17 13:03 Potassium 4.7 mEq/L (3.5-4.5) H 01/20/17 13:03 Chloride 76 mEq/L (98-109) L 01/20/17 13:03 Carbon Dioxide 18 mEq/L (19-29) L 01/20/17 13:03 Creatinine 1.50 mg/dL (0.72-1.25) H 01/20/17 13:03 Est GFR ( Amer) 58 (> 60) L 01/20/17 13:03 Est GFR (Non-Af Amer) 48 (> 60) L 01/20/17 13:03 Serum Osmolality 232 mOsm/kg (280-300) L 01/20/17 13:03 Calculated Osmolality 223 (280-300) L 01/20/17 13:03 Total Bilirubin 4.4 mg/dL (0.2-1.2) H 01/20/17 12:55 Direct Bilirubin 3.2 mg/dL (0.0-0.5) H 01/20/17 12:55 AST 115 Units/L (5-34) H 01/20/17 12:55 Alkaline Phosphatase 604 Units/L (38-126) H 01/20/17 12:55 Albumin 2.1 g/dL (3.5-5.0) L 01/20/17 12:55 Globulin 4.1 g/dL (2.4-3.5) H 01/20/17 12:55 Albumin/Globulin Ratio 0.5 (1.1-2.2) L 01/20/17 12:55 Urine Color [place] (Yellow) A 01/20/17 13:20 Urine Clarity Cloudy (Clear) A 01/20/17 13:20 Urine Protein 30 mg/dL (Neg-Trace) H 01/20/17 13:20 Urine Glucose (UA) 250 mg/dL (Normal) H 01/20/17 13:20 Urine Ketones 15 mg/dL (Negative) H 01/20/17 13:20 Urine Bilirubin Moderate (Negative) H 01/20/17 13:20 Ur Leukocyte Esterase Trace (Negative) H 01/20/17 13:20 Ur Squamous Epith Cells Many per lpf (None-Few) H 01/20/17 13:20 Ur Culture Indicated? YES (NO) A 01/20/17 13:20 <Cynthia Ladd M - Last Filed: 01/20/17 20:33> Date of Encounter: 01/20/17 History of Present Illness HPI: Mr. Hilliard is a 61 year old male All Systems: A 10-system review of systems was performed and is negative for pertinent findings except as documented above in the HPI. Results - Laboratory Findings CBC and BMP: 01/20/17 13:03 01/20/17 16:57 PT/INR, D-dimer PT 11.8 Seconds (9.4-12.1) 01/20/17 13:03 Abnormal lab findings: Abnormal lab results RBC 3.28 M/mcL (4.19-5.50) L 01/20/17 13:03 Hgb 12.5 g/dL (12.9-16.9) L 01/20/17 13:03 Hct 33.1 % (37.5-50.1) L 01/20/17 13:03 MCV 100.9 fL (83.0-100.0) H 01/20/17 13:03 MCH 38.1 pg (28.0-33.3) H 01/20/17 13:03 MCHC 37.8 g/dL (31.6-35.5) H 01/20/17 13:03 Plt Count 90 K/mcL (140-400) L 01/20/17 13:03 Platelet Estimate Slight Decrease (Normal) L 01/20/17 13:03 Anisocytosis 1+ (Not Present) A 01/20/17 13:03 Sodium 106 mEq/L (136-145) L* 01/20/17 16:57 Potassium 4.7 mEq/L (3.5-4.5) H 01/20/17 13:03 Chloride 76 mEq/L (98-109) L 01/20/17 13:03 Carbon Dioxide 18 mEq/L (19-29) L 01/20/17 13:03 Creatinine 1.50 mg/dL (0.72-1.25) H 01/20/17 13:03 Est GFR ( Amer) 58 (> 60) L 01/20/17 13:03 Est GFR (Non-Af Amer) 48 (> 60) L 01/20/17 13:03 Serum Osmolality 232 mOsm/kg (280-300) L 01/20/17 13:03 Calculated Osmolality 223 (280-300) L 01/20/17 13:03 Total Bilirubin 4.4 mg/dL (0.2-1.2) H 01/20/17 12:55 Direct Bilirubin 3.2 mg/dL (0.0-0.5) H 01/20/17 12:55 AST 115 Units/L (5-34) H 01/20/17 12:55 Alkaline Phosphatase 604 Units/L (38-126) H 01/20/17 12:55 Albumin 2.1 g/dL (3.5-5.0) L 01/20/17 12:55 Globulin 4.1 g/dL (2.4-3.5) H 01/20/17 12:55 Albumin/Globulin Ratio 0.5 (1.1-2.2) L 01/20/17 12:55 Urine Color [place] (Yellow) A 01/20/17 13:20 Urine Clarity Cloudy (Clear) A 01/20/17 13:20 Urine Protein 30 mg/dL (Neg-Trace) H 01/20/17 13:20 Urine Glucose (UA) 250 mg/dL (Normal) H 01/20/17 13:20 Urine Ketones 15 mg/dL (Negative) H 01/20/17 13:20 Urine Bilirubin Moderate (Negative) H 01/20/17 13:20 Ur Leukocyte Esterase Trace (Negative) H 01/20/17 13:20 Ur Squamous Epith Cells Many per lpf (None-Few) H 01/20/17 13:20 Ur Culture Indicated? YES (NO) A 01/20/17 13:20 - Attending Attestation I examined this patient and my medical decision-making was reviewed with the COOLING SYSTEM OPERATOR/PA/Advanced Practice Nurse/Resident Physician. I agree with the documented findings, disposition and treatment plan as described except to the extent set forth below. Patient seen and examined. Labs, radiology, chart personally reviewed. Agree with resident's history and physical, assessment, plan with following comments: PIN STICKER: Patient follows commands, however patient at risks for seizure with his history of alcohol abuse and severe hyponatremia, Patient at risk of delerium tremenous and he needs to be on CIWA protocol and multivitamens. Pulmonary: Patient has strong history of smoking tobacco and suspect copd. Patient is at risk of worsening of his breathing with treating him with 3% NaCl and need close monitoring. Cardiovascular: suspect intravascularly he is volume depleted and may need Albumen. GI: Nutrition per dietary and GI prophylaxis per routine. Will consider GI consult for his liver disease, which is alcololic in nature and he understand he needs to change his life style and quit smoking and alcohol. Will consult IR for paracentesis. Need to check intra-abdominal pressure. Heme: DVT prophylaxis per routine. Thrombocytopnea related to his liver disease and alcohol abuse. ID: Continue antibiotics and plan to de-escalation Renal; urine out put and renal funtion reviewed. Discussed with nephrology, clinically patient hypervolumic and to receive 3% saline and diuresis with close monitoring to correct his sodium level. It will be risky to correct his sodium quickly. Endorcine: blood glucose is monitored Lines: all lines checked and no evidence of infections Skin: skin care to prevent pressure ulcers per nursing routine care Discussed with his family at bedside. I spent 35 min of Critical Care time with this patient. It involved decision making of high complexity to assess, manipulate, and support vital organ system failure and/or to prevent further life threatening deterioration of the patient' s condition. The time involved in the performance of separately reportable procedures was not counted toward critical care time.
[2017-01-20] MEDS ORDERED: Naloxone 0.4 MG/ML INJ IVP PRN (16:12)
[2017-01-20 16:15] LABS: Osmolality,Urine 357 mOsm/kg (300-1090)
[2017-01-20] MEDS ORDERED: *HR* HYDROmorphone (PF) 1 MG/ML SYRINGE IVP PRN (16:28)
[2017-01-20] MEDS ORDERED: Ondansetron 4 MG/2 ML VIAL IVP PRN (16:28)
[2017-01-20 16:36] LABS: Sodium, Urine < 20.0 mEq/L
[2017-01-20] MEDS ORDERED: Acetaminophen 325 MG TABLET PO PRN ×2 (16:45→17:49)
[2017-01-20] MEDS ORDERED: Sennosides 8.6 MG TABLET PO PRN (16:45)
[2017-01-20] MEDS ORDERED: *HR* LORazepam 2 MG/ML VIAL IVP PRN ×3 (16:52)
[2017-01-20] MEDS ORDERED: Ipratropium/Albuterol Neb 3 ML IH PRN (17:32)
[2017-01-20] MEDS ORDERED: *HR* OxyCODONE Immed Rel 5 MG TABLET PO PRN (17:48)
[2017-01-20] MEDS: Thiamine (B-1) 100 MG, Folic Acid 1 MG, MVI, adult with vitamin K 10 ML in 0.9 % Sodi... IV SCH (18:26)
[2017-01-20 19:19] LABS: Amylase 57 Units/L (25-125); Lipase 63 Units/L (8-78)
[2017-01-20 19:20] LABS: Ethanol < 10 mg/dL (0-10)
[2017-01-20] MEDS: *HR* Heparin 5,000 UNIT/ML VIAL SQ SCH (20:13)
[2017-01-21] MEDS: Furosemide 40 MG/4 ML VIAL IVP SCH ×2 (00:43→09:36)
[2017-01-21 05:05] LABS: Magnesium 1.5 mg/dL (1.6-2.6); Phosphorous 3.2 mg/dL (2.3-4.7)
[2017-01-21 05:06] LABS: BUN/Creatinine Ratio 11 (6-26); Blood Urea Nitrogen 14 mg/dL (8-26); Calcium 7.3 mg/dL (8.6-10.8); Carbon Dioxide 17 mEq/L (19-29); Chloride 84 mEq/L (98-109); Creatine Kinase 70 Units/L (30-200); Glucose 68 mg/dL (70-99); Osmolality,Calculated 231 (280-300); Potassium 4.1 mEq/L (3.5-4.5); Uric Acid 5.5 mg/dL (3.5-7.2); eGFR For African Americans > 60 (> 60); eGFR For Non-African Americans 56 (> 60)
[2017-01-21 05:08] LABS: Sodium 111 mEq/L (136-145)
[2017-01-21] MEDS ORDERED: 0.9 % Sodium Chloride 500 ML ONE (05:16)
[2017-01-21 05:28] LABS: Thyroid Stimulating Hormone 1.376 mcIU/mL (0.350-4.840)
[2017-01-21 05:46] LABS: Eosinophils % 0.8 %
[2017-01-21 05:48] LABS: Hematocrit 25.5 % (37.5-50.1); Hemoglobin 9.6 g/dL (12.9-16.9); Immature Granulocytes % 0.8 % (0-4); Lymphocytes # 0.8 K/mcL (0.6-4.6); Mean Corpuscular Hemoglobin 38.1 pg (28.0-33.3); Mean Corpuscular Volume 101.2 fL (83.0-100.0); Mean Platelet Volume 10.6 fL (9.4-12.4); Monocytes # 0.5 K/mcL (0.0-1.3); Monocytes % 9.2 %; Neutrophils # 3.9 K/mcL (1.6-8.9); Red Blood Count 2.52 M/mcL (4.19-5.50); Red Cell Distribution Width 11.8 % (11.5-14.5); Segmented Neutrophils % 74.2 %
[2017-01-21 05:54] LABS: Mean Corpuscular HGB Conc 37.6 g/dL (31.6-35.5); Platelet Count 71 K/mcL (140-400)
[2017-01-21 06:04] LABS: Sodium, Urine < 20.0 mEq/L
[2017-01-21 06:11] LABS: Osmolality,Urine 283 mOsm/kg (300-1090)
--- NOTE | 2017-01-21 09:25 | Procedure Note ---
Date of procedure: 01/21/17 Pre-op diagnosis: Cirrhosis with Ascites Post-op diagnosis: same Procedure: Procedure: Diagnostic and Therapeutic Ultrasound-guided Paracentesis Indication: Cirrhosis with Ascites, abdominal distension with impaired respiratory mechanics. Guidance Services Coordinator: Noel Doyle PGY-3 Attending Physician: Shawn Harley MD Patient has cirrhosis with large amount of ascites evidenced on CT Abd/Pelvis and clinical exam prompting diagnostic and therapeutic ultrasound-guided paracentesis. Informed consent was obtained. Benefits, alternatives, and risks including bleeding, infection, organ damage, need for repeat procedure was discussed and patient voiced understanding and elected to proceed. A time-out was completed, verifying correct patient, procedure, site, positioning, and allergy. Ultrasound guidance was used to locate and luigi an ascitic pocket in the right lower abdominal region. Patient was positioned, prepped, and draped in the usual sterile fashion. 1% Lidocaine was used to anesthetize the area. A standard paracentesis kit needle was introduced into the peritoneal space and 4L clear straw-colored fluid was removed. 60cc charly and sent to lab for further peritoneal studies. Discussed with primary team. Complications: None EBL: Minimal Anesthesia: local Surgeon: Noel Doyle Template Reproduction Technician: Shawn Harley (Attending Physician) Estimated blood loss (cc): 5 Pathology: other (peritoneal labs (cell ct, albumin, Tprot, glucose, LDH)) Condition: stable Disposition: ICU (remains in ICU for close monitoring)
[2017-01-21 09:27] LABS: Alanine Aminotransferase 30 Units/L (0-55); Albumin/Globulin Ratio 0.5 (1.1-2.2); Alkaline Phosphatase 435 Units/L (38-126); Aspartate Amino Transferase 84 Units/L (5-34); Bilirubin,Total 3.4 mg/dL (0.2-1.2)
[2017-01-21 09:28] LABS: Albumin 1.6 g/dL (3.5-5.0); Total Protein 4.6 g/dL (6.0-8.3)
[2017-01-21] MEDS: Pantoprazole 40 MG VIAL IVPB SCH (09:35)
[2017-01-21] MEDS: *HR* Heparin 5,000 UNIT/ML VIAL SQ SCH (09:36)
[2017-01-21] MEDS: Albumin 25% 25gram/100mL 25 GM/100 ML IV.SOLN IVC SCH ×2 (09:37→11:11)
[2017-01-21] MEDS: Thiamine (B-1) 100 MG, Folic Acid 1 MG, MVI, adult with vitamin K 10 ML in 0.9 % Sodi... IV SCH (09:58)
--- NOTE | 2017-01-21 11:03 | Nephrology Progress Note ---
Date of Encounter: 01/21/17 Time of Encounter: 08:45 - Assessment and Plan (1) Hyponatremia Current Visit: Yes Status: Acute Slowly improving to 3% saline. I gave an extra dose of lasix 40mg IV x1 late last night. If the PNa continues to improve then will stop the 3% likely today. (2) Elevated serum creatinine Current Visit: Yes Status: Acute Suspect this represents CKD stage III Follow a renal protective/conservative strategy: dose Rx by GFR, avoid nephrotoxins (3) Ascites Current Visit: Yes Status: Acute Agree with the paracentesis Continue diuretics to help correct the hypervolemia and thereby helping correct the hyponatremia. Thank you Qualifiers: Ascites type: other type Qualified Code(s): R18.8 - Other ascites Subjective Principal diagnosis: Hyponatremia, Ascites Interval history: The Pt was S/E in the ICU. He was in the process of having a paracentesis. He did not affirm major complaints. Objective - Vital Signs Vital signs: Vital Signs Temp Pulse Resp BP Pulse Ox 01/21/17 10:49 74 16 87/60 99 01/21/17 10:30 81 14 94/63 99 01/21/17 10:10 79 18 81/61 99 01/21/17 10:00 84 16 95/61 99 01/21/17 09:50 84 16 75/57 99 01/21/17 09:40 79 18 79/55 99 01/21/17 09:30 79 16 75/56 99 01/21/17 09:21 78 16 90/64 100 01/21/17 09:00 79 18 77/58 99 01/21/17 08:00 80 16 95/55 99 01/21/17 07:43 98.2 F 01/21/17 07:00 80 20 76/61 99 01/21/17 06:00 78 18 88/65 97 01/21/17 05:00 86 16 98 01/21/17 04:00 86 16 81/61 98 01/21/17 03:00 90 18 98 01/21/17 02:00 76 16 97/62 98 01/21/17 01:00 86 16 96/51 98 01/21/17 00:00 97.6 F 86 14 93/61 98 01/20/17 23:00 81 18 83/50 98 01/20/17 22:00 86 18 98/57 98 02/27/17 21:00 86 16 86/52 100 01/20/17 20:00 87 16 98/62 100 Intake and Output 01/20/17 01/21/17 01/21/17 23:59 07:59 15:59 Intake Total 561.2 / 561.2 Output Total 100 / 300 200 / 200 Balance -100 / 300 361.2 / 361.2 Intake: IV Fluids 511.2 / 511.2 Vitamin B-1 100 MG 511.2 / 511.2 Folvite 1 MG M.v.i. Adult 10 ml In 0.9 % Sodium Chloride 500 ML @ 85.2 mls/hr IV DAILY [facility] Rx#: [id number] Oral 50 / 50 Output: Catheter 100 / 300 200 / 200 Other: Weight 93.4 kg Blood Glucose* 79 Patient Weight 01/21/17 23:59 Weight 93.4 kg - General Appearance Exam: General appearance: cachectic, moderate distress, chronically ill, fatigue, frail EENT: ATNC Respiratory: clear Cardiology: edema (2+ pretibial pitting edema up to the pretibials b/l), regular rate, regular rhythm, normal S1, normal S2 Gastrointestinal: no tenderness, no guarding, distended Integumentary: erythema, hyperpigmentation, chronic venous stasis Neurologic: asterixis, alert and oriented x3 (but slowed processing/conversation ) Musculoskeletal: deformities (b/l clavicular dislocations) Psychiatric: cooperative - Lab 01/22/17 05:42 01/22/17 05:42 Most recent lab results Calcium 7.3 mg/dL (8.6-10.8) L D 01/21/17 04:08 Phosphorus 3.2 mg/dL (2.3-4.7) 01/21/17 04:08 Magnesium 1.5 mg/dL (1.6-2.6) L 01/21/17 04:08 Urine Sodium < 20.0 mEq/L 01/21/17 04:08 Consult Discharge Plan - Plan Referrals: Vane Araujo, CORE INSERTER [Primary Care Provider] -
[2017-01-21] MEDS ORDERED: Potassium Phosphate 44 MEQ in 0.9 % Sodium Chloride 250 ML IVPB PRN (11:15)
[2017-01-21] MEDS: Budesonide/Formoterol 80/4.5 MDI IH SCH ×2 (11:39→22:42)
[2017-01-21] MEDS: Magnesium Sulfate 2 GM in D5% in Water 100 ML IVPB PRN (13:34)
[2017-01-21 13:59] LABS: Ionized Calcium 1.03 mmol/L (1.15-1.35)
[2017-01-21 14:05] LABS: BUN/Creatinine Ratio 11 (6-26); Blood Urea Nitrogen 13 mg/dL (8-26); Calcium 7.3 mg/dL (8.6-10.8); Carbon Dioxide 18 mEq/L (19-29); Chloride 87 mEq/L (98-109); Glucose 71 mg/dL (70-99); Magnesium 1.4 mg/dL (1.6-2.6); Osmolality,Calculated 241 (280-300); Potassium 3.6 mEq/L (3.5-4.5); eGFR For African Americans > 60 (> 60); eGFR For Non-African Americans > 60 (> 60)
[2017-01-21 14:07] LABS: Eosinophils % 0.3 %; Hematocrit 22.2 % (37.5-50.1); Hemoglobin 8.2 g/dL (12.9-16.9); Immature Granulocytes % 0.3 % (0-4); Lymphocytes # 0.4 K/mcL (0.6-4.6); Lymphocytes % 13.9 %; Mean Corpuscular HGB Conc 36.9 g/dL (31.6-35.5); Mean Corpuscular Volume 102.8 fL (83.0-100.0); Mean Platelet Volume 10.2 fL (9.4-12.4); Monocytes # 0.3 K/mcL (0.0-1.3); Monocytes % 10.2 %; Neutrophils # 2.3 K/mcL (1.6-8.9); Red Blood Count 2.16 M/mcL (4.19-5.50); Red Cell Distribution Width 11.9 % (11.5-14.5); Segmented Neutrophils % 75.3 %
[2017-01-21 14:09] LABS: Platelet Count 50 K/mcL (140-400)
[2017-01-21 14:14] LABS: Sodium 116 mEq/L (136-145)
--- NOTE | 2017-01-21 14:24 | Pulmonology Progress Note ---
<Rahul Baker - Last Filed: 01/21/17 14:19> Date of Encounter: 01/21/17 Time of Encounter: 09:00 Assessment and Plan (1) Hyponatremia Current Visit: Yes Status: Acute Patient had hypervolemic hyponatremia, with sodium at 107 at admission. He was asymptomatic and with patient history of beer consumption this could be related to low solute potomania, and chronic hyponatremia. He had been on 3% sodium chloride drip, with rechecks of patient's sodium show an increase to 116 over the course of 22 hours. The hypertonic saline has been stopped, but he continues with fluid restriction and periodic sodium checks. Try not to correct sodium more than 6-8 per day due to chronic nature of hyponatremia Nephrology is following and appreciate recommendations for continued management/ care Hypertonic saline has been stopped We will repeat sodium level at 2000 and 0100, with repeat lab in the morning Try not to correct sodium faster 6-8 per day Will institute to 1.5 L fluid restriction We will continue 40 mg IV Lasix daily We will consult professor of social work in regards to patient chronic alcoholism (2) Dyspnea Current Visit: Yes Status: Acute Patient reported increased shortness of breath for the past couple weeks, resulting in exertional dyspnea preventing him from even getting out of the chair. He does report some orthopnea (to 3 pillows) that he reports goes away after a couple minutes of lying down flat. He does report that he has been having increased abdominal swelling in the past week and a half, likely preventing full breaths. Chest x-ray did not show signs concerning for pneumonia. Patient received paracentesis of 4 L earlier today, after which patient reports breathing easier than he has been. Paracentesis was stopped due to concerns of patient hypotension. Will reevaluate and consider additional paracentesis tomorrow (as IR are thinks is ~8 L more) We will supplement oxygen as needed with nasal cannula or BiPAP, will wean as tolerated Continue 40 mg daily Lasix Consider additional paracentesis tomorrow Qualifiers: Dyspnea type: dyspnea on exertion Qualified Code(s): R06.09 - Other forms of dyspnea (3) History of alcohol abuse Current Visit: Yes Status: Acute Patient reports drinking up to 12 beers a day, and patient's daughter reports that he continues to drink 12 beers a day. Abdomen is distended with fluid wave present. No caput medusae or angiomata observed. Successfully underwent 4 L paracentesis earlier today with improvement of patient dyspnea. Ammonia level normal, amylase and lipase normal, PT 1.1, PTT 26.5. Most recent CBC shows platelet level of 50. Banana bag given [facility] protocol with Ativan, assess neurological status every 4 hours We will hold patient heparin We will consider GI consult when hyponatremia stabilized (4) Hypotension Current Visit: Yes Status: Acute Patient has been having blood pressures around 90 systolic for most the day, immediately post-paracentesis blood pressure was 75 systolic. Patient has continued to be lethargic and weak without significant change from admission. We will continue to closely monitor patient's blood pressure, could be related to patient underlying liver disease, intravascular volume depletion, or potential sepsis. We will continue to monitor closely We will hold additional fluids due to patient hyponatremia We will start Augmentin for lower extremity cellulitis We will give 50 g albumin Qualifiers: Hypotension type: unspecified hypotension type Qualified Code(s): I95.9 - Hypotension, unspecified (5) Thrombocytopenia Current Visit: Yes Status: Acute Patient presented with platelets of 90, over the course of the last 24 hours platelet level has dropped to 50. Underlying thrombocytopenic be related to patient liver disease. We will hold patient heparin (6) Ascites Current Visit: Yes Status: Acute Fluid wave present in the abdomen, received paracentesis of 4 L earlier today. 50 g albumin given. Peritoneal labs sent. Appears transudative in quality, no SBP. We will consider additional paracentesis tomorrow Possible GI consult once stabilized Qualifiers: Ascites type: other type Qualified Code(s): R18.8 - Other ascites (7) Elevated serum creatinine Current Visit: Yes Status: Acute Improvement in patient serum creatinine seen today, now 1.14. Nephrology is consulted and appreciate recommendations for continued management/ care We will avoid nephrotoxic agents We will start 40 mg daily Lasix (8) Hyperbilirubinemia Current Visit: Yes Status: Acute (9) DVT prophylaxis Current Visit: Yes Status: Acute GI prophylaxis: Pantoprazole DVT prophylaxis: Heparin held due to thrombocytopenia Neuro/sedation: History of alcohol abuse, CIWA protocol in place. Patient continues to have lethargy. Will monitor closely. Cardiovascular: Hypotension, ovoid fluid boluses due to patient hyponatremia, patient stable this time Pulmonary: Patient shortness of breath improved after 4 L paracentesis, no sign of lung disease on chest x-ray. Will supplement oxygen, DuoNeb treatments, Symbicort Renal: Improvement in patient's serum creatinine seen today. Will avoid nephrotoxic agents GI: Patient has history of heavy alcohol abuse, currently has ascites, 4 L paracentesis performed earlier today, likely additional paracentesis tomorrow. Could be related to alcoholic liver disease, Maddrey's discriminant factor 8.1 Heme: Drop in patient's hemoglobin seen today to 9.6, will monitor closely and transfuse if necessary, thrombocytopenia and leukopenia ID: Lower extremity cellulitis seen with open sore on left lower extremity, given Augmentin but will monitor, concern for hypotension with leukopenia and thrombocytopenia might be related to sepsis, await blood cultures and monitor closely Endocrine: Receiving banana bag for potential malnutrition given alcohol abuse Fluids/electrolytes: Hyponatremia with sodium at 107 at admission, currently 116. Hypertonic saline stopped, continue fluid restriction with daily Lasix Skin: Chronic stasis dermatitis, dry/flaky skin, erythema lower extremities, open wound on left field, possible cellulitis CODE STATUS: Full code Subjective Principal diagnosis: Hyponatremia, edema, ascites Interval history: Patient doing well today, is lethargic, comfortable, and without complaints. Patient dyspnea currently improved post 4 L paracentesis. More fluid appears on ultrasound patient abdomen, but hypotension occurring with earlier paracentesis limits further removal fluid. Objective PUL Vital signs: Last Vital Signs Temp 98.0 F 01/21/17 11:00 Pulse 88 01/21/17 13:00 Resp 18 01/21/17 13:00 BP 89/66 01/21/17 13:00 Pulse Ox 98 01/21/17 13:00 Constitutional: No acute distress, alert, comfortable appearing, lethargic, continued weakness, denies fever EENT: Sclera icteric, noninjected, oropharynx moist, no pharyngeal exudates appreciated, no erythema in oropharynx, neck supple Respiratory: Respirations nonlabored, clear to auscultation bilaterally, no wheezes/rhonchi/rales appreciated Cardiovascular: Regular rate and rhythm, no murmurs/rubs/gallops appreciated Gastrointestinal: Normoactive bowel sounds, soft, nontender, distended, fluid wave present, no guarding or rebound Integumentary: No erythema, no rashes, no pallor appreciated, capillary refill < 2 seconds, skin turgor normal Extremities: No clubbing, 1-2+ pedal edema bilaterally, erythema present on bilateral lower extremities, dry/peeling skin present, open, draining wound on left lower extremity Musculoskeletal: No deformities Neurologic: Alert and oriented 3, Normal mental status, nonfocal exam, pupils equal round reactive to light bilaterally Psychiatric: Lethargic, normal mood, normal affect Results - Laboratory Findings CBC and BMP: 01/21/17 13:50 01/21/17 13:50 PT/INR, D-dimer PT 11.8 Seconds (9.4-12.1) 01/20/17 13:03 Abnormal lab findings: Abnormal lab results WBC 3.0 K/mcL (4.3-11.1) L 01/21/17 13:50 RBC 2.16 M/mcL (4.19-5.50) L 01/21/17 13:50 Hgb 8.2 g/dL (12.9-16.9) L 01/21/17 13:50 Hct 22.2 % (37.5-50.1) L 01/21/17 13:50 MCV 102.8 fL (83.0-100.0) H 01/21/17 13:50 MCH 38.0 pg (28.0-33.3) H 01/21/17 13:50 MCHC 36.9 g/dL (31.6-35.5) H 01/21/17 13:50 Plt Count 50 K/mcL (140-400) L 01/21/17 13:50 Lymphocytes # 0.4 K/mcL (0.6-4.6) L 01/21/17 13:50 Platelet Estimate Slight Decrease (Normal) L 01/20/17 13:03 Immature Plt Fraction 10.0 % (1.1-6.1) H 01/21/17 04:08 Anisocytosis 1+ (Not Present) A 01/20/17 13:03 Sodium 116 mEq/L (136-145) L* 01/21/17 13:50 Chloride 87 mEq/L (98-109) L 01/21/17 13:50 Carbon Dioxide 18 mEq/L (19-29) L 01/21/17 13:50 Serum Osmolality 236 mOsm/kg (280-300) L 01/21/17 04:08 Calculated Osmolality 241 (280-300) L 01/21/17 13:50 Calcium 7.3 mg/dL (8.6-10.8) L 01/21/17 13:50 Ionized Calcium 1.03 mmol/L (1.15-1.35) L 01/21/17 13:50 Magnesium 1.4 mg/dL (1.6-2.6) L 01/21/17 13:50 Total Bilirubin 3.4 mg/dL (0.2-1.2) H 01/21/17 04:08 Direct Bilirubin 3.2 mg/dL (0.0-0.5) H 01/20/17 12:55 AST 84 Units/L (5-34) H 01/21/17 04:08 Alkaline Phosphatase 435 Units/L (38-126) H 01/21/17 04:08 Lactate Dehydrogenase 122 Units/L (159-327) L 01/21/17 09:47 Serum Total Protein 4.6 g/dL (6.0-8.3) L D 01/21/17 04:08 Albumin 1.6 g/dL (3.5-5.0) L D 01/21/17 04:08 Albumin/Globulin Ratio 0.5 (1.1-2.2) L 01/21/17 04:08 Urine Color Carson (Yellow) A 01/20/17 13:20 Urine Clarity Cloudy (Clear) A 01/20/17 13:20 Urine Protein 30 mg/dL (Neg-Trace) H 01/20/17 13:20 Urine Glucose (UA) 250 mg/dL (Normal) H 01/20/17 13:20 Urine Ketones 15 mg/dL (Negative) H 01/20/17 13:20 Urine Bilirubin Moderate (Negative) H 01/20/17 13:20 Ur Leukocyte Esterase Trace (Negative) H 01/20/17 13:20 Ur Squamous Epith Cells Many per lpf (None-Few) H 01/20/17 13:20 Ur Culture Indicated? YES (NO) A 01/20/17 13:20 Urine Osmolality 283 mOsm/kg (300-1090) L 01/21/17 04:08 - Clinical Findings Intake & Output: Intake & Output 01/20/17 01/21/17 01/21/17 23:59 07:59 15:59 Intake Total 561.2 / 561.2 725 / 725 Output Total 100 / 300 200 / 200 4750 / 4750 Balance -100 / 300 361.2 / 361.2 -4025 / -4025 Weight 93.4 kg Consult Discharge Plan - Plan Referrals: Vane Araujo, [employer] [Primary Care Provider] - <WilbertoNetoelias Shafer - Last Filed: 01/21/17 20:26> Objective PUL Vital signs: Last Vital Signs Temp 98.0 F 01/21/17 11:00 Pulse 84 01/21/17 20:00 Resp 14 01/21/17 20:00 BP 89/58 01/21/17 20:00 Pulse Ox 99 01/21/17 20:00 Results - Laboratory Findings CBC and BMP: 01/21/17 13:50 01/21/17 13:50 PT/INR, D-dimer PT 11.8 Seconds (9.4-12.1) 01/20/17 13:03 Abnormal lab findings: Abnormal lab results WBC 3.0 K/mcL (4.3-11.1) L 01/21/17 13:50 RBC 2.16 M/mcL (4.19-5.50) L 01/21/17 13:50 Hgb 8.2 g/dL (12.9-16.9) L 01/21/17 13:50 Hct 22.2 % (37.5-50.1) L 01/21/17 13:50 MCV 102.8 fL (83.0-100.0) H 01/21/17 13:50 MCH 38.0 pg (28.0-33.3) H 01/21/17 13:50 MCHC 36.9 g/dL (31.6-35.5) H 01/21/17 13:50 Plt Count 50 K/mcL (140-400) L 01/21/17 13:50 Lymphocytes # 0.4 K/mcL (0.6-4.6) L 01/21/17 13:50 Platelet Estimate Slight Decrease (Normal) L 01/20/17 13:03 Immature Plt Fraction 10.0 % (1.1-6.1) H 01/21/17 04:08 Anisocytosis 1+ (Not Present) A 01/20/17 13:03 Sodium 116 mEq/L (136-145) L* 01/21/17 13:50 Chloride 87 mEq/L (98-109) L 01/21/17 13:50 Carbon Dioxide 18 mEq/L (19-29) L 01/21/17 13:50 Serum Osmolality 236 mOsm/kg (280-300) L 01/21/17 04:08 Calculated Osmolality 241 (280-300) L 01/21/17 13:50 Calcium 7.3 mg/dL (8.6-10.8) L 01/21/17 13:50 Ionized Calcium 1.03 mmol/L (1.15-1.35) L 01/21/17 13:50 Magnesium 1.4 mg/dL (1.6-2.6) L 01/21/17 13:50 Total Bilirubin 3.4 mg/dL (0.2-1.2) H 01/21/17 04:08 Direct Bilirubin 3.2 mg/dL (0.0-0.5) H 01/20/17 12:55 AST 84 Units/L (5-34) H 01/21/17 04:08 Alkaline Phosphatase 435 Units/L (38-126) H 01/21/17 04:08 Lactate Dehydrogenase 122 Units/L (159-327) L 01/21/17 09:47 Serum Total Protein 4.6 g/dL (6.0-8.3) L D 01/21/17 04:08 Albumin 1.6 g/dL (3.5-5.0) L D 01/21/17 04:08 Albumin/Globulin Ratio 0.5 (1.1-2.2) L 01/21/17 04:08 Urine Color Carson (Yellow) A 01/20/17 13:20 Urine Clarity Cloudy (Clear) A 01/20/17 13:20 Urine Protein 30 mg/dL (Neg-Trace) H 01/20/17 13:20 Urine Glucose (UA) 250 mg/dL (Normal) H 01/20/17 13:20 Urine Ketones 15 mg/dL (Negative) H 01/20/17 13:20 Urine Bilirubin Moderate (Negative) H 01/20/17 13:20 Ur Leukocyte Esterase Trace (Negative) H 01/20/17 13:20 Ur Squamous Epith Cells Many per lpf (None-Few) H 01/20/17 13:20 Ur Culture Indicated? YES (NO) A 01/20/17 13:20 Urine Osmolality 283 mOsm/kg (300-1090) L 01/21/17 04:08 - Clinical Findings Intake & Output: Intake & Output 01/21/17 01/21/17 01/21/17 07:59 15:59 23:59 Intake Total 561.2 / 561.2 829 / 829 821.2 / 821.2 Output Total 200 / 200 5450 / 5450 Balance 361.2 / 361.2 -4621 / -4621 821.2 / 821.2 Weight 93.4 kg - Attending Attestation I examined this patient and my medical decision-making was reviewed with the CLINICAL REHAB SPECIALIST/PA/Advanced Practice Nurse/Resident Physician. I agree with the documented findings, disposition and treatment plan as described except to the extent set forth below. Patient seen and examined. Labs, radiology, chart personally reviewed. Agree with resident's history and physical, assessment, plan with following comments: ACID PURIFIER: Patient follows commands, Pulmonary: Acceptable oxygenation and ventilation Cardiovascular: stable GI: Nutrition per dietary and GI prophylaxis per routine. Suspect patient has alcoholic liver cirrhosis. Patient had paracentesis Heme: DVT prophylaxis per routine ID: Continue antibiotics and plan to de-escalation Renal; urine out put and renal funtion reviewed. Patient hyponatremia is appropriately correcting. Endorcine: blood glucose is monitored Lines: all lines checked and no evidence of infections Skin: skin care to prevent pressure ulcers per nursing routine care Will monitor in ICU for next 1-2 days.
[2017-01-21 14:41] LABS: Amylase,Peritoneal Fluid 17 Units/L (No Ref Range); Glucose,Peritoneal Fluid 74 mg/dL (No Ref Range); LDH,Peritoneal Fluid 30 Units/L (No Ref Range)
[2017-01-21 14:42] LABS: RBC,Peritoneal Fluid < 0.002 M/mcL; Total Protein,Peritoneal Fluid 0.8 g/dL (No Ref Range)
[2017-01-21 14:43] LABS: Appearance of Peritoneal Fl CLEAR (Clear)
--- NOTE | 2017-01-21 16:16 | Electrocardiograph Report ---
[address] [place], [place] [address] Test Date: 2017-01-20 Pat Name: Milton Hilliard Department: 102 Room: [facility] Gender: M Supervisor Of Communications: : 1955 Requested By: Jesse Geiger Order Number: [id number] Reading MD: Jesse Daniels Measurements Intervals [place] Rate: 89 P: 59 VT: 148 QRS: 74 QRSD: 87 T: 69 QT: 373 QTc: 420 Interpretive Statements SINUS RHYTHM POSSIBLE LEFT ATRIAL ENLARGEMENT Electronically Signed On 01-21-2017 16:14:03 EST by Jesse Daniels
[2017-01-21] MEDS: Calcium Gluconate 1,000 MG in D5% in Water 100 ML IVPB PRN (16:20)
[2017-01-22 01:37] LABS: Ionized Calcium 0.93 mmol/L (1.15-1.35); Magnesium 1.7 mg/dL (1.6-2.6); Potassium 3.9 mEq/L (3.5-4.5)
[2017-01-22] MEDS: Calcium Gluconate 1,000 MG in D5% in Water 100 ML IVPB PRN (02:44)
[2017-01-22] MEDS: Magnesium Sulfate 2 GM in D5% in Water 100 ML IVPB PRN (02:44)
[2017-01-22 05:58] LABS: INR 1.2; Prothrombin Time 12.6 Seconds (9.4-12.1)
[2017-01-22 05:59] LABS: Hemoglobin 8.6 g/dL (12.9-16.9); Immature Granulocytes % 0.4 % (0-4); Ionized Calcium 1.05 mmol/L (1.15-1.35); Segmented Neutrophils % 74.6 %
[2017-01-22 06:01] LABS: Eosinophils % 0.4 %; Hematocrit 23.5 % (37.5-50.1); Immature Platelets 7.2 % (1.1-6.1); Lymphocytes # 0.4 K/mcL (0.6-4.6); Lymphocytes % 15.7 %; Mean Corpuscular HGB Conc 36.6 g/dL (31.6-35.5); Mean Corpuscular Hemoglobin 37.4 pg (28.0-33.3); Mean Corpuscular Volume 102.2 fL (83.0-100.0); Mean Platelet Volume 10.2 fL (9.4-12.4); Monocytes # 0.3 K/mcL (0.0-1.3); Monocytes % 8.9 %; Neutrophils # 2.1 K/mcL (1.6-8.9); Red Cell Distribution Width 11.9 % (11.5-14.5)
[2017-01-22 06:04] LABS: Platelet Count 50 K/mcL (140-400)
[2017-01-22 06:07] LABS: Alanine Aminotransferase 27 Units/L (0-55); Albumin/Globulin Ratio 0.7 (1.1-2.2); Alkaline Phosphatase 347 Units/L (38-126); Aspartate Amino Transferase 72 Units/L (5-34); BUN/Creatinine Ratio 13 (6-26); Bilirubin,Total 3.3 mg/dL (0.2-1.2); Blood Urea Nitrogen 10 mg/dL (8-26); Calcium 7.3 mg/dL (8.6-10.8); Carbon Dioxide 20 mEq/L (19-29); Chloride 89 mEq/L (98-109); Globulin 2.6 g/dL (2.4-3.5); Glucose 91 mg/dL (70-99); Magnesium 2.2 mg/dL (1.6-2.6); Osmolality,Calculated 243 (280-300); Phosphorous 2.2 mg/dL (2.3-4.7); Potassium 3.8 mEq/L (3.5-4.5); eGFR For African Americans > 60 (> 60); eGFR For Non-African Americans > 60 (> 60)
[2017-01-22 06:48] LABS: Albumin 1.9 g/dL (3.5-5.0); Sodium 117 mEq/L (136-145); Total Protein 4.5 g/dL (6.0-8.3)
--- NOTE | 2017-01-22 06:52 | Pulmonology Progress Note ---
<Rahul Baker - Last Filed: 01/22/17 10:46> Date of Encounter: 01/22/17 Time of Encounter: 06:25 Assessment and Plan (1) Hyponatremia Current Visit: Yes Status: Acute Patient had hypervolemic hyponatremia, with sodium at 107 at admission. He was asymptomatic and with patient history of beer consumption this could be related to low solute potomania, and chronic hyponatremia. He had been on 3% sodium chloride drip, with rechecks of patient's sodium show GEN increase to 117 over 36 hours. The hypertonic saline was stopped on 01/21/17 , but he continues with fluid restriction, daily Lasix, and periodic sodium checks. Try not to correct sodium more than 6-8 per day due to chronic nature of hyponatremia Nephrology is following and appreciate recommendations for continued management/ care Hypertonic saline has been stopped We will continue daily Lasix We will continue tight fluid restriction We will repeat sodium levels every 6 hours Try not to correct sodium faster 6-8 per day Will institute a tight fluid restriction We will continue 40 mg IV Lasix daily We will consult social sciences research scientist in regards to patient chronic alcoholism PT/OT consult for patient continued weakness (2) Dyspnea Current Visit: Yes Status: Acute Patient reported increased shortness of breath for the past couple weeks, resulting in exertional dyspnea preventing him from even getting out of the chair. He does report some orthopnea (to 3 pillows) that he reports goes away after a couple minutes of lying down flat. He does report that he has been having increased abdominal swelling in the past week and a half, likely preventing full breaths. Chest x-ray did not show signs concerning for pneumonia. Patient received paracentesis of 4 L on 01/21/70, after which patient reports breathing easier than he has been. Paracentesis was stopped due to concerns of patient hypotension. Patient blood pressures remained stable around 90/60, patient will likely benefit from additional paracentesis. We will supplement oxygen as needed with nasal cannula or BiPAP, will wean as tolerated Continue 40 mg daily Lasix Spoke to IR about additional paracentesis performed today, potential albumin during paracentesis to support blood pressure, patient also started on 5 mg Midodrin 3 times a day Qualifiers: Dyspnea type: dyspnea on exertion Qualified Code(s): R06.09 - Other forms of dyspnea (3) Hypotension Current Visit: Yes Status: Acute Patient has been having blood pressures around 90 systolic and 60 diastolic, immediately post-paracentesis blood pressure was 75 systolic. Patient has continued to be lethargic and weak without significant change from admission. We will continue to closely monitor patient's blood pressure, could be related to patient underlying liver disease, intravascular volume depletion, or potential sepsis. We will continue to monitor closely We will hold additional fluids due to patient hyponatremia We will start Augmentin for lower extremity cellulitis All remaining given yesterday, possible albumin infusion during paracentesis 5 mg Midodrin 3 times a day Patient hypotension likely related to chronic liver disease Qualifiers: Hypotension type: unspecified hypotension type Qualified Code(s): I95.9 - Hypotension, unspecified (4) History of alcohol abuse Current Visit: Yes Status: Acute Patient reports drinking up to 12 beers a day, and patient's daughter reports that he continues to drink 12 beers a day. Abdomen is distended with fluid wave present. No caput medusae or angiomata observed. Successfully underwent 4 L paracentesis on 01/21/17 with improvement (not resolution) of patient dyspnea. Ammonia level normal, amylase and lipase normal, PT 1.2, PTT 26.5. Most recent CBC shows platelet level of 50. Banana bag given CIWA protocol with Ativan, assess neurological status every 4 hours We will hold patient heparin due to thrombocytopenia, no EPCDs due to patient cellulitis We will consider GI consult when hyponatremia stabilized (5) Thrombocytopenia Current Visit: Yes Status: Acute Patient presented with platelets of 90, Prilosec remain stable at 50 for last 2 days. Underlying thrombocytopenic be related to patient liver disease. We will hold patient heparin No EPCDs due to patient cellulitis (6) Ascites Current Visit: Yes Status: Acute Fluid wave present in the abdomen, received paracentesis of 4 L on 01/21/17. 50 g albumin given following paracentesis. Peritoneal fluid analysis was negative for SBP, negative for bacterial growth, and appeared transudative and quality. Consistent with liver cirrhosis We spoke with interventional radiology for consideration of additional paracentesis today Possible GI consult once stabilized Qualifiers: Ascites type: other type Qualified Code(s): R18.8 - Other ascites (7) Elevated serum creatinine Current Visit: Yes Status: Acute Improvement in patient serum creatinine seen yesterday, with continued improvement today, now 0.78 Nephrology is consulted and appreciate recommendations for continued management/ care We will avoid nephrotoxic agents We will start 40 mg daily Lasix (8) Hyperbilirubinemia Current Visit: Yes Status: Acute (9) DVT prophylaxis Current Visit: Yes Status: Acute GI prophylaxis: Pantoprazole DVT prophylaxis: Heparin held due to thrombocytopenia, no EPCDs due to patient bilateral cellulitis Neuro/sedation: History of alcohol abuse, CIWA protocol in place. Patient continues to have lethargy. Will monitor closely. Cardiovascular: Hypotension, Midodrin added, will avoid fluid boluses due to patient hyponatremia, patient stable this time Pulmonary: Patient shortness of breath improved after 4 L paracentesis, additional paracentesis planned, no sign of lung disease on chest x-ray. Will supplement oxygen, DuoNeb treatments, Symbicort Renal: Continued Improvement in patient's serum creatinine seen today. Will avoid nephrotoxic agents GI: Patient has history of heavy alcohol abuse, currently has ascites, 4 L paracentesis performed on 01/21/17, likely additional paracentesis today. Could be related to alcoholic liver disease, Maddrey's discriminant factor 8.1 Heme: Drop in patient's hemoglobin seen today to 8.6, likely related to dilution , will obtain stool guaiac will monitor closely and transfuse if necessary, thrombocytopenia and leukopenia ID: Lower extremity cellulitis seen with open sore on left lower extremity, given Augmentin but will monitor, concern for hypotension with leukopenia and thrombocytopenia might be related to sepsis, await blood cultures and monitor closely Endocrine: Receiving banana bag for potential malnutrition given alcohol abuse Fluids/electrolytes: Hyponatremia with sodium at 107 at admission, currently 117. Hypertonic saline stopped, continue fluid restriction with daily Lasix Skin: Chronic stasis dermatitis, dry/flaky skin, erythema lower extremities, open wound on left field, possible cellulitis CODE STATUS: Full code Subjective Principal diagnosis: Hyponatremia, edema, ascites Interval history: There is little change patient condition today. He states he is still doing well, but reports he did not sleep well last night due to the [employer] alarms be moved in the hallway. The continues to complain of lethargy and weakness. He states his breathing is better than it was at admission, but no significant change from yesterday. He denies any discomfort or pain in his chest, abdomen, or extremities. Patient sodium is up to 117 at morning labs, patient hypertonic saline drip stopped yesterday, continue daily Lasix and fluid restriction. Laboratory analysis of peritoneal fluid did not show SBP, bacterial growth, and fluid was transudate in quality. Patient will likely benefit from additional paracentesis today. Objective PUL Vital signs: Last Vital Signs Temp 98.5 F 01/21/17 20:30 Pulse 80 01/22/17 06:00 Resp 18 01/22/17 06:00 BP 95/60 01/22/17 06:00 Pulse Ox 99 01/22/17 06:00 Constitutional: No acute distress, alert, comfortable appearing, lethargic, continued weakness, denies fever, alert and oriented 3 EENT: Sclera icteric, noninjected, oropharynx moist, no pharyngeal exudates appreciated, no erythema in oropharynx, neck supple Respiratory: Respirations nonlabored, clear to auscultation bilaterally, no wheezes/rhonchi/rales appreciated Cardiovascular: Regular rate and rhythm, no murmurs/rubs/gallops appreciated Gastrointestinal: Normoactive bowel sounds, soft, nontender, distended, fluid wave present, no guarding or rebound Integumentary: No erythema, no rashes, no pallor appreciated, capillary refill < 2 seconds, skin turgor normal Extremities: No clubbing, 1-2+ pedal edema bilaterally, erythema present on bilateral lower extremities, dry/peeling skin present, open, draining wound on left lower extremity Musculoskeletal: No deformities Neurologic: Alert and oriented 3, Normal mental status, nonfocal exam, pupils equal round Psychiatric: Lethargic, normal mood, normal affect Results - Laboratory Findings CBC and BMP: 01/22/17 05:42 01/22/17 05:42 PT/INR, D-dimer PT 12.6 Seconds (9.4-12.1) H 01/22/17 05:42 Abnormal lab findings: Abnormal lab results WBC 2.8 K/mcL (4.3-11.1) L 01/22/17 05:42 RBC 2.30 M/mcL (4.19-5.50) L 01/22/17 05:42 Hgb 8.6 g/dL (12.9-16.9) L 01/22/17 05:42 Hct 23.5 % (37.5-50.1) L 01/22/17 05:42 MCV 102.2 fL (83.0-100.0) H 01/22/17 05:42 MCH 37.4 pg (28.0-33.3) H 01/22/17 05:42 MCHC 36.6 g/dL (31.6-35.5) H 01/22/17 05:42 Plt Count 50 K/mcL (140-400) L 01/22/17 05:42 Lymphocytes # 0.4 K/mcL (0.6-4.6) L 01/22/17 05:42 Platelet Estimate Slight Decrease (Normal) L 01/20/17 13:03 Immature Plt Fraction 7.2 % (1.1-6.1) H 01/22/17 05:42 Anisocytosis 1+ (Not Present) A 01/20/17 13:03 PT 12.6 Seconds (9.4-12.1) H 01/22/17 05:42 Sodium 117 mEq/L (136-145) L* 01/22/17 05:42 Chloride 89 mEq/L (98-109) L 01/22/17 05:42 Serum Osmolality 236 mOsm/kg (280-300) L 01/21/17 04:08 Calculated Osmolality 243 (280-300) L 01/22/17 05:42 Calcium 7.3 mg/dL (8.6-10.8) L 01/22/17 05:42 Ionized Calcium 1.05 mmol/L (1.15-1.35) L 01/22/17 05:42 Phosphorus 2.2 mg/dL (2.3-4.7) L 01/22/17 05:42 Total Bilirubin 3.3 mg/dL (0.2-1.2) H 01/22/17 05:42 Direct Bilirubin 3.2 mg/dL (0.0-0.5) H 01/20/17 12:55 AST 72 Units/L (5-34) H 01/22/17 05:42 Alkaline Phosphatase 347 Units/L (38-126) H 01/22/17 05:42 Lactate Dehydrogenase 122 Units/L (159-327) L 01/21/17 09:47 Serum Total Protein 4.5 g/dL (6.0-8.3) L 01/22/17 05:42 Albumin 1.9 g/dL (3.5-5.0) L 01/22/17 05:42 Albumin/Globulin Ratio 0.7 (1.1-2.2) L 01/22/17 05:42 Urine Color Wheeler (Yellow) A 01/20/17 13:20 Urine Clarity Cloudy (Clear) A 01/20/17 13:20 Urine Protein 30 mg/dL (Neg-Trace) H 01/20/17 13:20 Urine Glucose (UA) 250 mg/dL (Normal) H 01/20/17 13:20 Urine Ketones 15 mg/dL (Negative) H 01/20/17 13:20 Urine Bilirubin Moderate (Negative) H 01/20/17 13:20 Ur Leukocyte Esterase Trace (Negative) H 01/20/17 13:20 Ur Squamous Epith Cells Many per lpf (None-Few) H 01/20/17 13:20 Ur Culture Indicated? YES (NO) A 01/20/17 13:20 Urine Osmolality 283 mOsm/kg (300-1090) L 01/21/17 04:08 - Clinical Findings Intake & Output: Intake & Output 01/21/17 01/21/17 01/22/17 15:59 23:59 07:59 Intake Total 829 / 829 821.2 / 821.2 214 / 214 Output Total 5450 / 5450 300 / 300 550 / 550 Balance -4621 / -4621 521.2 / 521.2 -336 / -336 Weight 85.5 kg Consult Discharge Plan - Plan Referrals: Vane Araujo, MOTORCYCLE MECHANIC [Primary Care Provider] - <Cynthia Ladd - Last Filed: 01/22/17 13:32> Objective PUL Vital signs: Last Vital Signs Temp 98 F 01/22/17 11:10 Pulse 89 01/22/17 12:00 Resp 20 01/22/17 12:00 BP 86/46 01/22/17 12:00 Pulse Ox 98 01/22/17 12:00 Results - Laboratory Findings CBC and BMP: 01/22/17 05:42 01/22/17 05:42 PT/INR, D-dimer PT 12.6 Seconds (9.4-12.1) H 01/22/17 05:42 Abnormal lab findings: Abnormal lab results WBC 2.8 K/mcL (4.3-11.1) L 01/22/17 05:42 RBC 2.30 M/mcL (4.19-5.50) L 01/22/17 05:42 Hgb 8.6 g/dL (12.9-16.9) L 01/22/17 05:42 Hct 23.5 % (37.5-50.1) L 01/22/17 05:42 MCV 102.2 fL (83.0-100.0) H 01/22/17 05:42 MCH 37.4 pg (28.0-33.3) H 01/22/17 05:42 MCHC 36.6 g/dL (31.6-35.5) H 01/22/17 05:42 Plt Count 50 K/mcL (140-400) L 01/22/17 05:42 Lymphocytes # 0.4 K/mcL (0.6-4.6) L 01/22/17 05:42 Platelet Estimate Slight Decrease (Normal) L 01/20/17 13:03 Immature Plt Fraction 7.2 % (1.1-6.1) H 01/22/17 05:42 Anisocytosis 1+ (Not Present) A 01/20/17 13:03 PT 12.6 Seconds (9.4-12.1) H 01/22/17 05:42 Sodium 117 mEq/L (136-145) L* 01/22/17 05:42 Chloride 89 mEq/L (98-109) L 01/22/17 05:42 POC Glucose 105 (58-89) H 01/22/17 11:11 Serum Osmolality 236 mOsm/kg (280-300) L 01/21/17 04:08 Calculated Osmolality 243 (280-300) L 01/22/17 05:42 Calcium 7.3 mg/dL (8.6-10.8) L 01/22/17 05:42 Ionized Calcium 1.05 mmol/L (1.15-1.35) L 01/22/17 05:42 Phosphorus 2.2 mg/dL (2.3-4.7) L 01/22/17 05:42 Total Bilirubin 3.3 mg/dL (0.2-1.2) H 01/22/17 05:42 Direct Bilirubin 3.2 mg/dL (0.0-0.5) H 01/20/17 12:55 AST 72 Units/L (5-34) H 01/22/17 05:42 Alkaline Phosphatase 347 Units/L (38-126) H 01/22/17 05:42 Lactate Dehydrogenase 122 Units/L (159-327) L 01/21/17 09:47 Serum Total Protein 4.5 g/dL (6.0-8.3) L 01/22/17 05:42 Albumin 1.9 g/dL (3.5-5.0) L 01/22/17 05:42 Albumin/Globulin Ratio 0.7 (1.1-2.2) L 01/22/17 05:42 Urine Color Wheeler (Yellow) A 01/20/17 13:20 Urine Clarity Cloudy (Clear) A 01/20/17 13:20 Urine Protein 30 mg/dL (Neg-Trace) H 01/20/17 13:20 Urine Glucose (UA) 250 mg/dL (Normal) H 01/20/17 13:20 Urine Ketones 15 mg/dL (Negative) H 01/20/17 13:20 Urine Bilirubin Moderate (Negative) H 01/20/17 13:20 Ur Leukocyte Esterase Trace (Negative) H 01/20/17 13:20 Ur Squamous Epith Cells Many per lpf (None-Few) H 01/20/17 13:20 Ur Culture Indicated? YES (NO) A 01/20/17 13:20 Urine Osmolality 283 mOsm/kg (300-1090) L 01/21/17 04:08 - Clinical Findings Intake & Output: Intake & Output 01/21/17 01/22/17 01/22/17 23:59 07:59 15:59 Intake Total 821.2 / 821.2 214 / 214 60 / 60 Output Total 300 / 300 550 / 550 1250 / 1250 Balance 521.2 / 521.2 -336 / -336 -1190 / -1190 Weight 85.5 kg - Attending Attestation I examined this patient and my medical decision-making was reviewed with the SECRET SERVICE AGENT/PA/Advanced Practice Nurse/Resident Physician. I agree with the documented findings, disposition and treatment plan as described except to the extent set forth below. Patient seen and examined. Labs, radiology, chart personally reviewed. Agree with resident's history and physical, assessment, plan with following comments: MECHANIC CHIEF: Patient follows commands, Pulmonary: Acceptable oxygenation and ventilation Cardiovascular: stable. I suspect patient baseline has low BP. GI: Nutrition per dietary and GI prophylaxis per routine. IR for more paracentesis. Heme: DVT prophylaxis per routine. not able to do mechanical prophylaxis due to his lower ext dermatitis and edema ID: Continue antibiotics and plan to de-escalation Renal; urine out put and renal funtion reviewed. Improvement in sodium level Endorcine: blood glucose is monitored Lines: all lines checked and no evidence of infections Skin: skin care to prevent pressure ulcers per nursing routine care Possible transfer to the floor.
[2017-01-22] MEDS: Pantoprazole 40 MG VIAL IVPB SCH (08:19)
[2017-01-22] MEDS: Furosemide 40 MG/4 ML VIAL IVP SCH (08:19)
[2017-01-22] MEDS: Thiamine (B-1) 100 MG, Folic Acid 1 MG, MVI, adult with vitamin K 10 ML in 0.9 % Sodi... IV SCH (08:20)
[2017-01-22] MEDS: Budesonide/Formoterol 80/4.5 MDI IH SCH ×2 (10:45→22:07)
--- NOTE | 2017-01-22 10:53 | Nephrology Progress Note ---
Date of Encounter: 01/22/17 Time of Encounter: 08:40 - Assessment and Plan (1) Hyponatremia Current Visit: Yes Status: Acute He corrected safely enough to stop the 3% saline and is s/p a paracentesis. The PNa is slowly but safely correcting. Continue a fluid restriction and diuresis for correction of the hypervolemia component of the hyponatremia Okay to space the frequency of PNa checks to every 5-6 hr Thank you. (2) Elevated serum creatinine Current Visit: Yes Status: Acute Suspect CKD stage III. Follow a renal protective strategy. Avoid nephrotoxins. (3) Ascites Current Visit: Yes Status: Acute Qualifiers: Ascites type: other type Qualified Code(s): R18.8 - Other ascites Subjective Principal diagnosis: Hyponatremia, edema, ascites Interval history: Pt was s/e earlier today. He did not affirm new major complaints. He had a paracentesis yesterday. Objective - Vital Signs Vital signs: Vital Signs Temp Pulse Resp BP Pulse Ox 01/22/17 10:46 15 99 01/22/17 08:00 76 18 85/56 99 01/22/17 07:25 98.1 F 01/22/17 06:00 80 18 95/60 99 01/22/17 05:00 80 18 81/56 97 01/22/17 04:00 80 16 96/61 98 01/22/17 03:00 87 16 96/65 99 01/22/17 02:00 86 17 93/56 97 01/22/17 01:00 91 16 80/51 98 01/22/17 00:00 80 87/56 01/21/17 23:00 96 17 112/72 97 01/21/17 22:42 16 99 01/21/17 22:00 93 16 105/65 99 01/21/17 21:00 80 15 89/56 99 01/21/17 20:30 98.5 F 01/21/17 20:00 80 14 89/58 99 01/21/17 19:00 84 16 90/63 97 01/21/17 18:00 86 16 90/62 99 01/21/17 17:33 93 18 106/66 98 01/21/17 16:00 84 16 89/61 98 01/21/17 15:37 78 99 01/21/17 15:00 86 16 91/68 98 01/21/17 14:00 79 16 83/57 99 01/21/17 13:00 88 18 89/66 98 01/21/17 12:00 92 16 92/61 97 01/21/17 11:41 14 99 01/21/17 11:30 80 14 82/63 99 01/21/17 11:00 98.0 F 87 16 89/60 99 Intake and Output 01/21/17 01/22/17 01/22/17 23:59 07:59 15:59 Intake Total 821.2 / 821.2 214 / 214 60 / 60 Output Total 300 / 300 550 / 550 Balance 521.2 / 521.2 -336 / -336 60 / 60 Intake: IV Fluids 621.2 / 621.2 214 / 214 Vitamin B-1 100 MG 511.2 / 511.2 Folvite 1 MG M.v.i. Adult 10 ml In 0.9 % Sodium Chloride 500 ML @ 85.2 mls/hr IV DAILY GEN Rx#: [id number] Calcium Gluconate 1,000 110 / 110 110 / 110 MG In Dextrose 5% 100 ML @ 50 mls/hr IVPB Q6HR PRN Rx#:[id number] Magnesium Sulfate 2 GM In 104 / 104 Dextrose 5% 100 ML @ 50 mls/hr IVPB Q6H PRN Rx#: [id number] Oral 200 / 200 60 / 60 Tube Feeding 0 / 0 Output: Catheter 300 / 300 550 / 550 Other: Weight 85.5 kg Blood Glucose* 96 Patient Weight 01/22/17 23:59 Weight 85.5 kg - General Appearance Exam: General appearance: cachectic, moderate distress, chronically ill, fatigue, frail EENT: ATNC Respiratory: clear Cardiology: edema (2+ pretibial pitting edema up to the pretibials b/l), regular rate, regular rhythm, normal S1, normal S2 Gastrointestinal: no tenderness, no guarding, distended Integumentary: erythema, hyperpigmentation, chronic venous stasis Neurologic: asterixis, alert and oriented x3 (but slowed processing/conversation ) Musculoskeletal: deformities (b/l clavicular dislocations) Psychiatric: cooperative - Lab 01/22/17 05:42 01/22/17 05:42 Most recent lab results Calcium 7.3 mg/dL (8.6-10.8) L 01/22/17 05:42 Phosphorus 2.2 mg/dL (2.3-4.7) L 01/22/17 05:42 Magnesium 2.2 mg/dL (1.6-2.6) 01/22/17 05:42 Urine Sodium < 20.0 mEq/L 01/21/17 04:08 Consult Discharge Plan - Plan Referrals: Vane Araujo, CORE DRILLER [Primary Care Provider] -
[2017-01-22] MEDS: Albumin 25% 25gram/100mL 25 GM/100 ML IV.SOLN IVC SCH ×2 (12:42→14:20)
--- NOTE | 2017-01-22 15:11 | IR Procedure Note ---
Date of procedure: 01/22/17 Consent Obtained: Written consent Timeout: Correct patient and procedure verified, Correct site verified, Time out performed, Skin prep completed Indications: ascites Procedure Performed: paracentesis Site/Technique: rt abdomen Results/Findings: moderate ascites Estimated blood loss (cc): 0 Complications: None; Tolerated procedure well Post Procedure Treatment Plan: observation
[2017-01-23 04:23] LABS: Eosinophils % 0.8 %; Mean Corpuscular Volume 104.2 fL (83.0-100.0)
[2017-01-23 04:25] LABS: Hematocrit 22.3 % (37.5-50.1); Hemoglobin 8.1 g/dL (12.9-16.9); Immature Granulocytes % 0.4 % (0-4); Immature Platelets 7.1 % (1.1-6.1); Lymphocytes # 0.6 K/mcL (0.6-4.6); Lymphocytes % 25.4 %; Mean Corpuscular HGB Conc 36.3 g/dL (31.6-35.5); Mean Corpuscular Hemoglobin 37.9 pg (28.0-33.3); Mean Platelet Volume 9.9 fL (9.4-12.4); Monocytes # 0.2 K/mcL (0.0-1.3); Neutrophils # 1.7 K/mcL (1.6-8.9); Red Blood Count 2.14 M/mcL (4.19-5.50); Segmented Neutrophils % 67.4 %
[2017-01-23 04:38] LABS: Platelet Count 42 K/mcL (140-400)
[2017-01-23 04:55] LABS: Alanine Aminotransferase 21 Units/L (0-55); Albumin/Globulin Ratio 1.2 (1.1-2.2); Alkaline Phosphatase 275 Units/L (38-126); Aspartate Amino Transferase 65 Units/L (5-34); BUN/Creatinine Ratio 11 (6-26); Bilirubin,Total 3.1 mg/dL (0.2-1.2); Blood Urea Nitrogen 7 mg/dL (8-26); Calcium 7.1 mg/dL (8.6-10.8); Carbon Dioxide 24 mEq/L (19-29); Chloride 90 mEq/L (98-109); Glucose 98 mg/dL (70-99); Osmolality,Calculated 250 (280-300); Potassium 3.3 mEq/L (3.5-4.5); Total Protein 4.3 g/dL (6.0-8.3); eGFR For African Americans > 60 (> 60); eGFR For Non-African Americans > 60 (> 60)
[2017-01-23 05:17] LABS: Albumin 2.3 g/dL (3.5-5.0); Sodium 121 mEq/L (136-145)
[2017-01-23 05:25] LABS: Kappa Qnt Free Light Chains 3.43 mg/dL (0.33-1.94); Lambda Qnt Free Light Chains 2.91 mg/dL (0.57-2.63)
[2017-01-23 07:47] LABS: Magnesium 1.7 mg/dL (1.6-2.6); Phosphorous 1.5 mg/dL (2.3-4.7)
[2017-01-23] MEDS: Pantoprazole 40 MG VIAL IVPB SCH (07:49)
[2017-01-23] MEDS: *HR* Heparin 5,000 UNIT/ML VIAL SQ SCH ×2 (07:49→08:12)
[2017-01-23] MEDS: Furosemide 40 MG/4 ML VIAL IVP SCH (07:49)
[2017-01-23] MEDS: Calcium Gluconate 1,000 MG in D5% in Water 100 ML IVPB PRN (07:50)
--- NOTE | 2017-01-23 09:00 | Pulmonology Progress Note ---
<Rahul Baker - Last Filed: 01/23/17 08:52> Date of Encounter: 01/23/17 Time of Encounter: 08:15 Assessment and Plan (1) Hyponatremia Current Visit: Yes Status: Acute Patient had hypervolemic hyponatremia, with sodium at 107 at admission. He was asymptomatic and with patient history of beer consumption this could be related to low solute potomania, and chronic hyponatremia. He had been on 3% sodium chloride drip, with rechecks of patient's sodium now at 121. The hypertonic saline was stopped on 01/21/17, but he continues with fluid restriction, daily Lasix, and periodic sodium checks. Try not to correct sodium more than 6-8 per day due to chronic nature of hyponatremia Nephrology is following and appreciate recommendations for continued management/ care Hypertonic saline has been stopped We will continue daily Lasix We will continue tight fluid restriction We will repeat sodium levels daily Try not to correct sodium faster 6-8 per day Will institute a tight fluid restriction We will continue 40 mg IV Lasix daily We will add spironolactone for concerns of patient liver disease given alcohol usage Consider GI consult for further evaluation patient liver disease We will consult protective services social worker in regards to patient chronic alcoholism PT/OT consult for patient continued weakness (2) Dyspnea Current Visit: Yes Status: Acute Patient reported increased shortness of breath for the past couple weeks, resulting in exertional dyspnea preventing him from even getting out of the chair. He does report some orthopnea (to 3 pillows) that he reports goes away after a couple minutes of lying down flat. He does report that he has been having increased abdominal swelling in the past week and a half, likely preventing full breaths. Chest x-ray did not show signs concerning for pneumonia. Patient received paracentesis of 4 L on 01/21/17 and again of 2 L on 01/22/17, after which patient reports breathing easier than he has been. Paracentesis was stopped due to concerns of patient hypotension. Patient blood pressures remained stable around 90/60, patient will likely benefit from additional paracentesis. Patient now maintaining adequate oxygen saturations on room air Continue 40 mg daily Lasix Consider additional paracenteses Midodrin 3 times a day Qualifiers: Dyspnea type: dyspnea on exertion Qualified Code(s): R06.09 - Other forms of dyspnea (3) Hypotension Current Visit: Yes Status: Acute Patient has been having blood pressures around 90 systolic and 60 diastolic, immediately post-paracentesis blood pressure was 75 systolic. Patient has continued to be lethargic and weak without significant change from admission. We will continue to closely monitor patient's blood pressure, could be related to patient underlying liver disease, intravascular volume depletion, or potential sepsis. Continues to maintain stable blood pressure 90s over 60s We will continue to monitor closely We will hold additional fluids due to patient hyponatremia We will change patient's Augmentin to ceftriaxone for better gram-negative silvestre coverage Consider additional albumin for continued hypotension 5 mg Midodrin 3 times a day Patient hypotension likely related to chronic liver disease Patient might benefit from nadolol, but previous endoscopy did not show varices. Likely benefit from further evaluation/reevaluation from GI. Qualifiers: Hypotension type: unspecified hypotension type Qualified Code(s): I95.9 - Hypotension, unspecified (4) History of alcohol abuse Current Visit: Yes Status: Acute Patient reports drinking up to 12 beers a day, and patient's daughter reports that he continues to drink 12 beers a day. Abdomen is distended with fluid wave present. No caput medusae or angiomata observed. Successfully underwent 4 L paracentesis on 01/21/17 with improvement (not resolution) of patient dyspnea. Ammonia level normal, amylase and lipase normal, PT 1.2, PTT 26.5. Most recent CBC shows platelet level of 50. Banana bag given CIWA protocol with Ativan, assess neurological status every 4 hours We will hold patient heparin due to thrombocytopenia, no EPCDs due to patient cellulitis We will consider GI consult when hyponatremia stabilized Spironolactone ordered (5) Thrombocytopenia Current Visit: Yes Status: Acute Patient presented with platelets of 90, Prilosec remain stable at 50 for last 2 days. Underlying thrombocytopenic be related to patient liver disease. We will stop patient heparin No EPCDs due to patient cellulitis (6) Ascites Current Visit: Yes Status: Acute Fluid wave present in the abdomen, received paracentesis of 4 L on 01/21/17 and 2 L paracentesis on 01/22/17. 50 g albumin given following paracentesis. Peritoneal fluid analysis was negative for SBP, negative for bacterial growth, and appeared transudative and quality. Consistent with liver cirrhosis Patient will likely benefit from additional paracentesis, but will hold for now Possible GI consult once stabilized Qualifiers: Ascites type: other type Qualified Code(s): R18.8 - Other ascites (7) Elevated serum creatinine Current Visit: Yes Status: Resolved Improvement in patient serum creatinine seen yesterday, with continued improvement today, now 0.66 Nephrology is consulted and appreciate recommendations for continued management/ care We will avoid nephrotoxic agents We will start 40 mg daily Lasix (8) Hyperbilirubinemia Current Visit: Yes Status: Acute (9) DVT prophylaxis Current Visit: Yes Status: Acute GI prophylaxis: Pantoprazole DVT prophylaxis: Heparin held due to thrombocytopenia, no EPCDs due to patient bilateral cellulitis Neuro/sedation: History of alcohol abuse, CIWA protocol in place. Patient continues to have lethargy. Will monitor closely. Cardiovascular: Hypotension, Midodrin added, will avoid fluid boluses due to patient hyponatremia, patient stable this time Pulmonary: Patient shortness of breath improved after 4 L paracentesis, additional paracentesis planned, no sign of lung disease on chest x-ray. Will supplement oxygen, DuoNeb treatments, Symbicort Renal: Continued Improvement in patient's serum creatinine seen today. Will avoid nephrotoxic agents GI: We will start spironolactone, Patient has history of heavy alcohol abuse, currently has ascites, 4 L paracentesis performed on 01/21/17, likely additional paracentesis today. Could be related to alcoholic liver disease, Maddrey's discriminant factor 8.1. Endoscopy on 08/21/16 did not show esophageal varices at that time, likely consult GI for additional recommendations regarding liver disease. Heme: Drop in patient's hemoglobin seen today to 8.1, likely related to dilution , will obtain stool guaiac will monitor closely and transfuse if necessary, thrombocytopenia and leukopenia ID: Lower extremity cellulitis seen with open sore on left lower extremity, will change Augmentin to ceftriaxone due to culture showing 2 gram-negative rods , but will monitor, concern for hypotension with leukopenia and thrombocytopenia might be related to sepsis, await blood cultures and monitor closely Endocrine: Receiving banana bag for potential malnutrition given alcohol abuse Fluids/electrolytes: Hyponatremia with sodium at 107 at admission, currently 121. Hypertonic saline stopped, continue fluid restriction with daily Lasix Skin: Chronic stasis dermatitis, dry/flaky skin, erythema lower extremities, open wound on left field, possible cellulitis Disposition: Patient stable for transfer to floor today CODE STATUS: Full code Subjective Principal diagnosis: Hyponatremia, edema, ascites Interval history: When seen patient is alert and eating breakfast. He is oriented 3. He states he is doing well overall, but continues to have lethargy and weakness. He also reports a runny nose that has flecks of blood. But no cough, shortness of breath, or pain or discomfort. His sodium was 121 this morning, hypertonic saline drip was stopped on 01/21/17. He received additional paracentesis yesterday afternoon at 2 L. Objective PUL Vital signs: Last Vital Signs Temp 98.3 F 01/23/17 07:47 Pulse 90 01/23/17 08:00 Resp 17 01/23/17 08:00 BP 88/69 01/23/17 08:00 Pulse Ox 94 L 01/23/17 08:00 Constitutional: No acute distress, alert, comfortable appearing, lethargic, continued weakness, denies fever, alert and oriented 3 EENT: Sclera icteric, noninjected, oropharynx moist, neck supple Respiratory: Respirations nonlabored, clear to auscultation bilaterally, no wheezes/rhonchi/rales appreciated Cardiovascular: Regular rate and rhythm, no murmurs/rubs/gallops appreciated Gastrointestinal: Normoactive bowel sounds, soft, nontender, still distended but improved, fluid wave present, no guarding or rebound Integumentary: No jaundice appreciated, no angiomata observed, no erythema, no rashes, no pallor appreciated, capillary refill < 2 seconds, skin turgor normal Extremities: No clubbing, 1-2+ pedal edema bilaterally, erythema present on bilateral lower extremities, dry/peeling skin present, open, draining wound on left lower extremity Musculoskeletal: No deformities Neurologic: Alert and oriented 3, Normal mental status, nonfocal exam, pupils equal round Psychiatric: Lethargic, normal mood, normal affect Results - Laboratory Findings CBC and BMP: 01/23/17 03:35 01/23/17 03:35 PT/INR, D-dimer PT 12.6 Seconds (9.4-12.1) H 01/22/17 05:42 Abnormal lab findings: Abnormal lab results WBC 2.5 K/mcL (4.3-11.1) L 01/23/17 03:35 RBC 2.14 M/mcL (4.19-5.50) L 01/23/17 03:35 Hgb 8.1 g/dL (12.9-16.9) L 01/23/17 03:35 Hct 22.3 % (37.5-50.1) L 01/23/17 03:35 MCV 104.2 fL (83.0-100.0) H 01/23/17 03:35 MCH 37.9 pg (28.0-33.3) H 01/23/17 03:35 MCHC 36.3 g/dL (31.6-35.5) H 01/23/17 03:35 Plt Count 42 K/mcL (140-400) L 01/23/17 03:35 Platelet Estimate Slight Decrease (Normal) L 01/20/17 13:03 Immature Plt Fraction 7.1 % (1.1-6.1) H 01/23/17 03:35 Anisocytosis 1+ (Not Present) A 01/20/17 13:03 PT 12.6 Seconds (9.4-12.1) H 01/22/17 05:42 Sodium 121 mEq/L (136-145) L 01/23/17 03:35 Potassium 3.3 mEq/L (3.5-4.5) L 01/23/17 03:35 Chloride 90 mEq/L (98-109) L 01/23/17 03:35 BUN 7 mg/dL (8-26) L 01/23/17 03:35 Creatinine 0.66 mg/dL (0.72-1.25) L 01/23/17 03:35 POC Glucose 105 (58-89) H 01/23/17 07:11 Serum Osmolality 236 mOsm/kg (280-300) L 01/21/17 04:08 Calculated Osmolality 250 (280-300) L 01/23/17 03:35 Calcium 7.1 mg/dL (8.6-10.8) L 01/23/17 03:35 Ionized Calcium 1.05 mmol/L (1.15-1.35) L 01/22/17 05:42 Phosphorus 1.5 mg/dL (2.3-4.7) L 01/23/17 03:35 Total Bilirubin 3.1 mg/dL (0.2-1.2) H 01/23/17 03:35 Direct Bilirubin 3.2 mg/dL (0.0-0.5) H 01/20/17 12:55 AST 65 Units/L (5-34) H 01/23/17 03:35 Alkaline Phosphatase 275 Units/L (38-126) H 01/23/17 03:35 Lactate Dehydrogenase 122 Units/L (159-327) L 01/21/17 09:47 Serum Total Protein 4.3 g/dL (6.0-8.3) L 01/23/17 03:35 Albumin 2.3 g/dL (3.5-5.0) L D 01/23/17 03:35 Globulin 2.0 g/dL (2.4-3.5) L 01/23/17 03:35 Urine Color [place] (Yellow) A 01/20/17 13:20 Urine Clarity Cloudy (Clear) A 01/20/17 13:20 Urine Protein 30 mg/dL (Neg-Trace) H 01/20/17 13:20 Urine Glucose (UA) 250 mg/dL (Normal) H 01/20/17 13:20 Urine Ketones 15 mg/dL (Negative) H 01/20/17 13:20 Urine Bilirubin Moderate (Negative) H 01/20/17 13:20 Ur Leukocyte Esterase Trace (Negative) H 01/20/17 13:20 Ur Squamous Epith Cells Many per lpf (None-Few) H 01/20/17 13:20 Ur Culture Indicated? YES (NO) A 01/20/17 13:20 Urine Osmolality 283 mOsm/kg (300-1090) L 01/21/17 04:08 Free [place] LC, Quant 3.43 mg/dL (0.33-1.94) H 01/21/17 04:08 Free Lambda LC, Quant 2.91 mg/dL (0.57-2.63) H 01/21/17 04:08 - Microbiology Findings Microbiology Findings: Microbiology, Last 48 Hours 01/21/17 12:32 Wound Culture - Preliminary Left Leg Gram Negative Silvestre Gram Negative Silvestre#2 - Clinical Findings Intake & Output: Intake & Output 01/22/17 01/23/17 01/23/17 23:59 07:59 15:59 Output Total 320 / 320 Balance -20 / -20 -320 / -320 Weight 84.8 kg Consult Discharge Plan - Plan Referrals: Vane Araujo, MOTOR [employer] [Primary Care Provider] - <Cynthia Ladd - Last Filed: 01/23/17 15:31> Objective PUL Vital signs: Last Vital Signs Temp 97.9 F 01/23/17 11:30 Pulse 82 01/23/17 11:57 Resp 16 01/23/17 11:57 BP 87/55 01/23/17 11:57 Pulse Ox 95 01/23/17 11:57 Results - Laboratory Findings CBC and BMP: 01/23/17 03:35 01/23/17 03:35 PT/INR, D-dimer PT 12.6 Seconds (9.4-12.1) H 01/22/17 05:42 Abnormal lab findings: Abnormal lab results WBC 2.5 K/mcL (4.3-11.1) L 01/23/17 03:35 RBC 2.14 M/mcL (4.19-5.50) L 01/23/17 03:35 Hgb 8.1 g/dL (12.9-16.9) L 01/23/17 03:35 Hct 22.3 % (37.5-50.1) L 01/23/17 03:35 MCV 104.2 fL (83.0-100.0) H 01/23/17 03:35 MCH 37.9 pg (28.0-33.3) H 01/23/17 03:35 MCHC 36.3 g/dL (31.6-35.5) H 01/23/17 03:35 Plt Count 42 K/mcL (140-400) L 01/23/17 03:35 Platelet Estimate Slight Decrease (Normal) L 01/20/17 13:03 Immature Plt Fraction 7.1 % (1.1-6.1) H 01/23/17 03:35 Anisocytosis 1+ (Not Present) A 01/20/17 13:03 PT 12.6 Seconds (9.4-12.1) H 01/22/17 05:42 Sodium 121 mEq/L (136-145) L 01/23/17 03:35 Potassium 3.3 mEq/L (3.5-4.5) L 01/23/17 03:35 Chloride 90 mEq/L (98-109) L 01/23/17 03:35 BUN 7 mg/dL (8-26) L 01/23/17 03:35 Creatinine 0.66 mg/dL (0.72-1.25) L 01/23/17 03:35 POC Glucose 143 (58-89) H 01/23/17 15:22 Serum Osmolality 236 mOsm/kg (280-300) L 01/21/17 04:08 Calculated Osmolality 250 (280-300) L 01/23/17 03:35 Calcium 7.1 mg/dL (8.6-10.8) L 01/23/17 03:35 Ionized Calcium 1.05 mmol/L (1.15-1.35) L 01/22/17 05:42 Phosphorus 1.5 mg/dL (2.3-4.7) L 01/23/17 03:35 Total Bilirubin 3.1 mg/dL (0.2-1.2) H 01/23/17 03:35 Direct Bilirubin 3.2 mg/dL (0.0-0.5) H 01/20/17 12:55 AST 65 Units/L (5-34) H 01/23/17 03:35 Alkaline Phosphatase 275 Units/L (38-126) H 01/23/17 03:35 Lactate Dehydrogenase 122 Units/L (159-327) L 01/21/17 09:47 Serum Total Protein 4.3 g/dL (6.0-8.3) L 01/23/17 03:35 Albumin 2.3 g/dL (3.5-5.0) L D 01/23/17 03:35 Globulin 2.0 g/dL (2.4-3.5) L 01/23/17 03:35 Urine Color [place] (Yellow) A 01/20/17 13:20 Urine Clarity Cloudy (Clear) A 01/20/17 13:20 Urine Protein 30 mg/dL (Neg-Trace) H 01/20/17 13:20 Urine Glucose (UA) 250 mg/dL (Normal) H 01/20/17 13:20 Urine Ketones 15 mg/dL (Negative) H 01/20/17 13:20 Urine Bilirubin Moderate (Negative) H 01/20/17 13:20 Ur Leukocyte Esterase Trace (Negative) H 01/20/17 13:20 Ur Squamous Epith Cells Many per lpf (None-Few) H 01/20/17 13:20 Ur Culture Indicated? YES (NO) A 01/20/17 13:20 Urine Osmolality 283 mOsm/kg (300-1090) L 01/21/17 04:08 Free [place] LC, Quant 3.43 mg/dL (0.33-1.94) H 01/21/17 04:08 Free Lambda LC, Quant 2.91 mg/dL (0.57-2.63) H 01/21/17 04:08 - Microbiology Findings Microbiology Findings: Microbiology, Last 48 Hours 01/21/17 12:32 Wound Culture - Preliminary Left Leg Gram Negative Silvestre Gram Negative Silvestre#2 - Clinical Findings Intake & Output: Intake & Output 01/22/17 01/23/17 01/23/17 23:59 07:59 15:59 Intake Total 434 / 434 Output Total 320 / 320 625 / 625 Balance -20 / -20 -320 / -320 -191 / -191 Weight 84.8 kg - Attending Attestation I examined this patient and my medical decision-making was reviewed with the GARMENT PRESSER/PA/Advanced Practice Nurse/Resident Physician. I agree with the documented findings, disposition and treatment plan as described except to the extent set forth below. Patient seen and examined. Labs, radiology, chart personally reviewed. 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 GI: Nutrition per dietary and GI prophylaxis per routine. status post paracentesis Heme: DVT prophylaxis per routine Renal; urine out put and renal funtion reviewed. Sodium is getting better and I suspect he has chronic hyponatremia. Endorcine: blood glucose is monitored Lines: all lines checked and no evidence of infections Skin: skin care to prevent pressure ulcers per nursing routine care
[2017-01-23] MEDS: Magnesium Sulfate 2 GM in D5% in Water 100 ML IVPB PRN (09:50)
[2017-01-23] MEDS ORDERED: Multivit/Ca/Min/Fe/FA 1 TAB TABLET PO SCH (10:30)
[2017-01-23] MEDS: Budesonide/Formoterol 80/4.5 MDI IH SCH ×2 (10:43→21:11)
[2017-01-23] MEDS ORDERED: *HR* LORazepam 2 MG/ML VIAL IVP PRN ×3 (11:07)
[2017-01-23] MEDS ORDERED: Ipratropium/Albuterol Neb 3 ML IH PRN (11:07)
[2017-01-23] MEDS ORDERED: Ondansetron 4 MG/2 ML VIAL IVP PRN (11:07)
[2017-01-23] MEDS ORDERED: Sennosides 8.6 MG TABLET PO PRN (11:07)
[2017-01-23] MEDS ORDERED: Magnesium Sulfate 2 GM in D5% in Water 100 ML IVPB PRN (11:07)
[2017-01-23] MEDS ORDERED: *HR* OxyCODONE Immed Rel 5 MG TABLET PO PRN (11:07)
[2017-01-23] MEDS ORDERED: Naloxone 0.4 MG/ML INJ IVP PRN (11:07)
[2017-01-23] MEDS ORDERED: Calcium Gluconate 1,000 MG in D5% in Water 100 ML IVPB PRN (11:07)
[2017-01-23] MEDS ORDERED: Potassium Phosphate 44 MEQ in 0.9 % Sodium Chloride 250 ML IVPB PRN (11:07)
[2017-01-23] MEDS ORDERED: *HR* HYDROmorphone (PF) 1 MG/ML SYRINGE IVP PRN (11:07)
--- NOTE | 2017-01-23 11:28 | Nephrology Progress Note ---
Date of Encounter: 01/23/17 Time of Encounter: 09:10 - Assessment and Plan (1) Hyponatremia Current Visit: Yes Status: Acute Hypervolemic hyponatremia in the setting of cirrhosis and ascites and chronic edema. The PNa is slowly correcting. Continue a fluid restriction and diuresis for correction of the hypervolemia component of the hyponatremia. In the next 24- 48hr, he should be able to convert to oral diuretics. Okay to add spironolactone the lasix, which is an ideal approach in patients with chronic edema and cirrhosis. Avoid SSRIs and thiazide type diuretics since he remains hyponatremia. Replete the Phos, K+ today. I'll order these labs to monitor. Renal function is preserved. Thank you. (2) Ascites Current Visit: Yes Status: Acute Continue diuretics to help correct the hypervolemia and thereby helping correct the hyponatremia. See above. Qualifiers: Ascites type: other type Qualified Code(s): R18.8 - Other ascites (3) Hypophosphatemia Current Visit: Yes Status: Acute Replete. Will monitor. (4) Hypokalemia Current Visit: Yes Status: Acute Replete (5) Hypotension Current Visit: Yes Status: Acute Likely related to his cirrhosis physiology Qualifiers: Hypotension type: unspecified hypotension type Qualified Code(s): I95.9 - Hypotension, unspecified Subjective Principal diagnosis: Hyponatremia, edema, ascites Interval history: Pt was s/e earlier today. He did not affirm new major complaints; he did not affirm N/V/D. I discussed my recommendations with the ICU team. Objective - Vital Signs Vital signs: Vital Signs Temp Pulse Resp BP Pulse Ox 01/23/17 10:44 16 96 01/23/17 10:00 91 17 95 01/23/17 09:00 83 14 85/55 96 01/23/17 08:00 90 17 88/69 94 L 01/23/17 07:47 98.3 F 01/23/17 07:00 80 01/23/17 06:00 80 18 88/61 95 01/23/17 05:00 76 16 81/57 95 01/23/17 04:24 98.5 F 01/23/17 03:00 81 20 93/62 95 01/23/17 02:00 77 18 87/57 95 01/23/17 01:00 88 20 87/64 93 L 01/23/17 00:48 98.5 F 01/23/17 00:00 77 16 86/61 95 01/22/17 23:00 84 16 90/64 95 01/22/17 22:07 16 94 L 01/22/17 22:00 76 18 92/59 93 L 01/22/17 21:00 85 18 91/65 94 L 01/22/17 20:00 98.5 F 86 14 89/57 94 L 01/22/17 19:00 85 14 82/54 94 L 01/22/17 18:00 68 19 88/60 98 01/22/17 17:00 70 18 95/58 97 01/22/17 16:00 83 19 92/65 98 01/22/17 15:30 97.8 F 01/22/17 15:00 76 19 85/54 97 01/22/17 14:00 88 20 96/64 98 01/22/17 13:00 84 19 84/57 98 01/22/17 12:00 89 20 86/46 98 Intake and Output 01/22/17 01/23/17 01/23/17 23:59 07:59 15:59 Intake Total 210 / 210 Output Total 20 / 20 320 / 320 300 / 300 Balance -20 / -20 -320 / -320 -90 / -90 Intake: IV Fluids 110 / 110 Calcium Gluconate 1,000 110 / 110 MG In Dextrose 5% 100 ML @ 50 mls/hr IVPB Q6HR PRN Rx#:[id number] Oral 100 / 100 Output: Urine / 20 320 / 320 300 / 300 Other: Weight 84.8 kg Blood Glucose* 134 105 Patient Weight 01/23/17 23:59 Weight 84.8 kg - General Appearance Exam: General appearance: cachectic, chronically ill, fatigue, frail EENT: ATNC Respiratory: clear Cardiology: edema (1-2+ pretibial pitting edema up to the pretibials b/l), regular rate, regular rhythm, normal S1, normal S2 Gastrointestinal: no tenderness, no guarding, distended Integumentary: erythema, hyperpigmentation, chronic venous stasis Neurologic: alert and oriented x3 (but slowed processing/conversation) Musculoskeletal: deformities (b/l clavicular dislocations) Psychiatric: cooperative - Lab 01/23/17 03:35 01/23/17 03:35 Most recent lab results Calcium 7.1 mg/dL (8.6-10.8) L 01/23/17 03:35 Phosphorus 1.5 mg/dL (2.3-4.7) L 01/23/17 03:35 Magnesium 1.7 mg/dL (1.6-2.6) 01/23/17 03:35 Urine Sodium < 20.0 mEq/L 01/21/17 04:08 Consult Discharge Plan - Plan Referrals: Vane Araujo, SPANISH TRANSLATOR [Primary Care Provider] -
[2017-01-24 05:39] LABS: Alpha 2 Globulin (PEP) 0.73 g/dL (0.48-1.05); Beta Globulin (PEP) 0.62 g/dL (0.48-1.10)
[2017-01-24 07:08] LABS: INR 1.2; Prothrombin Time 13.5 Seconds (9.4-12.1)
[2017-01-24 07:13] LABS: Eosinophils % 0.8 %; Hemoglobin 8.6 g/dL (12.9-16.9); Immature Granulocytes % 0.4 % (0-4); Red Cell Distribution Width 12.1 % (11.5-14.5)
[2017-01-24 07:15] LABS: Basophils % 0.4 %; Hematocrit 23.6 % (37.5-50.1); Lymphocytes # 0.6 K/mcL (0.6-4.6); Lymphocytes % 22.7 %; Mean Corpuscular HGB Conc 36.4 g/dL (31.6-35.5); Mean Corpuscular Hemoglobin 37.7 pg (28.0-33.3); Mean Corpuscular Volume 103.5 fL (83.0-100.0); Mean Platelet Volume 10.9 fL (9.4-12.4); Monocytes # 0.3 K/mcL (0.0-1.3); Monocytes % 11.8 %; Neutrophils # 1.7 K/mcL (1.6-8.9); Red Blood Count 2.28 M/mcL (4.19-5.50); Segmented Neutrophils % 63.9 %
[2017-01-24 07:16] LABS: Platelet Count 46 K/mcL (140-400)
[2017-01-24 07:25] LABS: Alanine Aminotransferase 26 Units/L (0-55); Albumin 2.1 g/dL (3.5-5.0); Albumin/Globulin Ratio 0.9 (1.1-2.2); Alkaline Phosphatase 278 Units/L (38-126); Aspartate Amino Transferase 73 Units/L (5-34); BUN/Creatinine Ratio 13 (6-26); Bilirubin,Total 2.5 mg/dL (0.2-1.2); Blood Urea Nitrogen 8 mg/dL (8-26); Calcium 7.2 mg/dL (8.6-10.8); Carbon Dioxide 26 mEq/L (19-29); Chloride 91 mEq/L (98-109); Globulin 2.4 g/dL (2.4-3.5); Glucose 92 mg/dL (70-99); Osmolality,Calculated 254 (280-300); Potassium 3.4 mEq/L (3.5-4.5); Sodium 123 mEq/L (136-145); Total Protein 4.5 g/dL (6.0-8.3); eGFR For African Americans > 60 (> 60); eGFR For Non-African Americans > 60 (> 60)
[2017-01-24 07:26] LABS: Magnesium 1.7 mg/dL (1.6-2.6); Phosphorous 1.3 mg/dL (2.3-4.7)
[2017-01-24 08:39] LABS: ANA IgG by ELISA NONE DETECTED (None Detected)
[2017-01-24] MEDS ORDERED: Pantoprazole 40 MG VIAL IVPB SCH (09:00)
[2017-01-24] MEDS ORDERED: Spironolactone 25 MG TABLET PO SCH ×3 (09:00→09:04)
[2017-01-24 09:27] LABS: Immunoglobulin G 1070 mg/dL (768-1632)
[2017-01-24 09:28] LABS: IFE Reflexed IFE Done; Immunoglobulin A 360 mg/dL (68-408); Immunoglobulin M 150 mg/dL (35-263)
--- NOTE | 2017-01-24 10:39 | Nephrology Progress Note ---
Date of Encounter: 01/24/17 Time of Encounter: 10:38 - Assessment and Plan (1) Hyponatremia Current Visit: Yes Status: Acute Patient with hypervolemic hyponatremia that is improving with fluid restriction and furosemide. He is feeling better and ambulating more. (2) Ascites Current Visit: Yes Status: Acute furosemide and spironolactone. Qualifiers: Ascites type: other type Qualified Code(s): R18.8 - Other ascites (3) Hypokalemia Current Visit: Yes Status: Acute Replace as needed and follow. (4) Hypophosphatemia Current Visit: Yes Status: Acute Replace as needed and follow. Subjective Principal diagnosis: Hyponatremia, edema, ascites Interval history: Patient seen and evaluated. His daughter was at his bedside. He has no new complaints. His appetite is improving slightly. He is working with PT to ambulate more. ROS otherwise stable. Objective - Vital Signs Vital signs: Vital Signs Temp Pulse Resp BP Pulse Ox 01/24/17 06:54 98.5 F 87 14 95/61 95 01/24/17 03:57 98.8 F 82 14 84/35 95 01/24/17 02:01 98.5 F 86 15 104/65 97 01/24/17 00:50 98.5 F 01/24/17 00:00 85 01/23/17 21:12 18 96 01/23/17 20:43 98.4 F 01/23/17 20:00 85 17 89/60 95 01/23/17 16:53 97.3 F L 01/23/17 15:00 82 14 92/60 95 01/23/17 11:57 82 16 87/55 95 01/23/17 11:30 97.9 F 01/23/17 10:44 16 96 Intake and Output 01/23/17 01/24/17 01/24/17 23:59 07:59 15:59 Intake Total 120 / 120 240 / 240 Output Total 200 / 200 600 / 600 Balance -200 / -200 -480 / -480 240 / 240 Intake: Oral 120 / 120 240 / 240 Output: Urine 200 / 200 150 / 150 Urine/Stool Mix 450 / 450 Other: Meal Breakfast Percent of Meal Consumed 20% Stool Size Moderate Moderate Stool Consistency soft soft formed Stool Color Brown Brown # Voids 1 # Bowel Movements 0 1 # Bowel Movement Diapers 1 Weight 82.193 kg Blood Glucose* 151 Patient Weight 01/24/17 23:59 Weight 82.193 kg - General Appearance General appearance: Present: well-developed, well-nourished EENT: Present: ATNC Neck: Present: supple Respiratory: Present: clear Cardiology: Present: edema (trace-1+), regular rate, regular rhythm Gastrointestinal: Present: normoactive bowel sounds, no tenderness Integumentary: Present: warm and dry, erythema Neurologic: Present: alert and oriented x3 Musculoskeletal: Present: no cyanosis Psychiatric: Present: mood/affect appropriate - Lab 01/24/17 05:24 01/24/17 05:24 Most recent lab results Calcium 7.2 mg/dL (8.6-10.8) L 01/24/17 05:24 Phosphorus 1.3 mg/dL (2.3-4.7) L 01/24/17 05:24 Magnesium 1.7 mg/dL (1.6-2.6) 01/24/17 05:24 Urine Sodium < 20.0 mEq/L 01/21/17 04:08 Consult Discharge Plan - Plan Referrals: Vane Araujo, LIME SLAKER [Primary Care Provider] -
[2017-01-24] MEDS ORDERED: Magnesium Sulfate 1 GM in D5% in Water 100 ML IVPB ONE (10:42)
[2017-01-24] MEDS: Magnesium Oxide 400 MG TABLET PO SCH ×2 (10:50→20:57)
[2017-01-24] MEDS: Multivit/Ca/Min/Fe/FA 1 TAB TABLET PO SCH (10:51)
[2017-01-24] MEDS: Budesonide/Formoterol 80/4.5 MDI IH SCH ×2 (11:13→20:08)
[2017-01-24] MEDS: Furosemide 40 MG TABLET PO SCH (12:19)
--- NOTE | 2017-01-24 12:35 | Internal Med Progress Note ---
Date of Encounter: 01/24/17 Time of Encounter: 11:00 - Assessment and plan (1) Ascites Current Visit: Yes Status: Acute Assessment and plan: likely secondary to chronic liver disease in setting of patient with history of alcohol use, thrombocytopenia and hyponatreami in setting of likely beer potomania and fluid overload secondary to edema. S/P paracentesis. No paracentesis neded at this time. Sodium slowly improving. Continue with diuretics and monitor electrolytes and renal function tests. GI consult. Avoid nephrotoxic agents. Aldactone and lasix today. PT eval. Alcool cessation was tressed. D/W patient and his family in detail. D/C planning. Qualifiers: Ascites type: other type Qualified Code(s): R18.8 - Other ascites (2) DVT prophylaxis Current Visit: Yes Status: Acute (3) History of alcohol abuse Current Visit: Yes Status: Acute (4) Hypokalemia Current Visit: Yes Status: Acute Assessment and plan: Supplement potassium today. Continue monitoring. (5) Hyponatremia Current Visit: Yes Status: Acute Assessment and plan: Nephro input noted. (6) Thrombocytopenia Current Visit: Yes Status: Acute - Time Spent With Patient 25 - 35 minutes - Subjective Interval history: first encounter with the patient. his daughter present during encounter. denied fever or chest pain. not in distress. breathing ambient air. feels weak. no abd cecilio. - Constitutional Vitals: Temp Pulse Resp BP Pulse Ox 98.0 F 93 14 99/65 95 01/24/17 10:45 01/24/17 10:45 01/24/17 10:45 01/24/17 10:45 01/24/17 10:45 General appearance: Present: cooperative, disheveled, A&O X 3, pleasant Exam: dry skin. ascites noted, no tenderness. not in distress. on room air. - Head Head exam: Present: atraumatic, normocephalic - Eye Eye exam: Present: PERRL, conjuntiva pink, sclera anicteric Pupils: Present: PERRL - Neck Neck exam general surgery: Present: supple, trachea midline. Absent: lymphadenopathy - Respiratory Respiratory exam: Present: CTAB. Absent: accessory muscle use, rales, rhonchi, wheezes - Cardiovascular Cardiovascular exam: Present: RRR, +S1, +S2. Absent: diastolic murmur, gallop, rubs, systolic murmur - GI/Abdominal GI/Abdominal exam: Present: normal bowel sounds, no peritoneal signs. Absent: distended, tenderness Additional comments: ascites noted - Extremities Exam Extremities exam: Present: warm, radial pulses palpable and symetrical. Absent : calf tenderness, cyanotic, pedal edema - Neurological Exam Neurological exam: Present: CN II-XII intact, oriented X3, no focal deficits. Absent: pronater drift, facial droop, speech deficit - Skin Skin exam: Present: dry, intact Internal Medicine: Result - Labs CBC & Chem 7: 01/24/17 05:24 01/24/17 05:24 Labs: Short CBC 01/24/17 Range/Units 05:24 WBC 2.6 L (4.3-11.1) K/mcL Hgb 8.6 L (12.9-16.9) g/dL Hct 23.6 L (37.5-50.1) % Plt Count 46 L (140-400) K/mcL Neutrophils # 1.7 (1.6-8.9) K/mcL BMP 01/24/17 05:24 Sodium 123 L Potassium 3.4 L Chloride 91 L Carbon Dioxide 26 BUN 8 Creatinine 0.64 L Glucose 92 Calcium 7.2 L Liver Function 01/24/17 Range/Units 05:24 Total Bilirubin 2.5 H (0.2-1.2) mg/dL AST 73 H (5-34) Units/L ALT 26 (0-55) Units/L Alkaline Phosphatase 278 H (38-126) Units/L Albumin 2.1 L (3.5-5.0) g/dL - ABG Interpretation ABG results: PT/INR, D-dimer PT 13.5 Seconds (9.4-12.1) H 01/24/17 05:24 Consult Discharge Plan - Plan Referrals: Vane Araujo, TAHIR [Primary Care Provider] -
[2017-01-24] MEDS: Miconazole 2% ointment 114 GM TUBE TP SCH ×2 (17:25→22:06)
[2017-01-25 04:30] LABS: Eosinophils % 1.2 %; Immature Granulocytes % 0.4 % (0-4); Mean Corpuscular HGB Conc 35.3 g/dL (31.6-35.5); Red Cell Distribution Width 12.2 % (11.5-14.5)
[2017-01-25 04:32] LABS: Basophils % 0.4 %; Hematocrit 23.5 % (37.5-50.1); Hemoglobin 8.3 g/dL (12.9-16.9); Immature Platelets 10.7 % (1.1-6.1); Lymphocytes # 0.6 K/mcL (0.6-4.6); Lymphocytes % 24.8 %; Mean Corpuscular Hemoglobin 37.4 pg (28.0-33.3); Mean Corpuscular Volume 105.9 fL (83.0-100.0); Mean Platelet Volume 11.4 fL (9.4-12.4); Monocytes # 0.4 K/mcL (0.0-1.3); Monocytes % 15.1 %; Neutrophils # 1.5 K/mcL (1.6-8.9); Red Blood Count 2.22 M/mcL (4.19-5.50); Segmented Neutrophils % 58.1 %
[2017-01-25 04:33] LABS: Platelet Count 47 K/mcL (140-400)
[2017-01-25 04:43] LABS: BUN/Creatinine Ratio 15 (6-26); Blood Urea Nitrogen 9 mg/dL (8-26); Calcium 6.9 mg/dL (8.6-10.8); Carbon Dioxide 25 mEq/L (19-29); Chloride 90 mEq/L (98-109); Glucose 92 mg/dL (70-99); Magnesium 1.4 mg/dL (1.6-2.6); Osmolality,Calculated 248 (280-300); Potassium 3.5 mEq/L (3.5-4.5); eGFR For African Americans > 60 (> 60); eGFR For Non-African Americans > 60 (> 60)
[2017-01-25 04:46] LABS: Sodium 120 mEq/L (136-145)
[2017-01-25] MEDS: Budesonide/Formoterol 80/4.5 MDI IH SCH ×2 (07:50→21:12)
[2017-01-25] MEDS: Multivit/Ca/Min/Fe/FA 1 TAB TABLET PO SCH (09:34)
[2017-01-25] MEDS: Magnesium Oxide 400 MG TABLET PO SCH ×2 (09:34→21:17)
[2017-01-25] MEDS: Furosemide 40 MG TABLET PO SCH (09:34)
[2017-01-25] MEDS: Spironolactone 25 MG TABLET PO SCH (09:35)
[2017-01-25] MEDS: Magnesium Sulfate 2 GM in D5% in Water 100 ML IVPB SCH ×2 (09:38→17:50)
--- NOTE | 2017-01-25 12:30 | Nephrology Progress Note ---
Date of Encounter: 01/25/17 Time of Encounter: 12:28 - Assessment and Plan (1) Hyponatremia Current Visit: Yes Status: Acute Patient with hypervolemic hyponatremia that was improving with fluid restriction and furosemide. He is feeling better and ambulating more. Sodium slightly down today and is likely related to free water in iv medications. Will have pharmacy change iv carrier solution to 0.9. (2) Ascites Current Visit: Yes Status: Acute furosemide and spironolactone. Qualifiers: Ascites type: other type Qualified Code(s): R18.8 - Other ascites (3) Hypokalemia Current Visit: Yes Status: Acute Replace as needed and follow. (4) Hypophosphatemia Current Visit: Yes Status: Acute Replace as needed and follow. Subjective Principal diagnosis: Hyponatremia, edema, ascites Interval history: Patient seen and evaluated. He has no new complaints. His appetite is improving slightly. ROS otherwise stable. Objective - Vital Signs Vital signs: Vital Signs Temp Pulse Resp BP Pulse Ox 01/25/17 10:00 98.0 F 87 16 106/66 97 01/25/17 07:52 16 97 01/25/17 06:00 97.8 F 86 16 105/68 97 01/25/17 04:04 98 F 80 15 106/66 96 01/24/17 22:40 98.9 F 84 14 107/69 98 01/24/17 20:08 16 98 01/24/17 19:21 98.5 F 86 14 95/56 97 01/24/17 14:36 98.7 F 91 14 99/63 98 Intake and Output 01/24/17 01/25/17 01/25/17 23:59 07:59 15:59 Intake Total 255 / 255 Output Total 350 / 350 0 / 0 Balance -95 / -95 0 / 0 Intake: IV Fluids 255 / 255 Potassium Phosphate 22 255 / 255 MEQ In 0.9 % Sodium Chloride 250 ML @ 40 mls/ hr IVPB ONCE ONE Rx#: [id number] Oral 0 / 0 Output: Urine 350 / 350 0 / 0 Other: Meal Breakfast Percent of Meal Consumed 75% 50% Stool Size Small Moderate Moderate Stool Consistency loose soft soft Stool Characteristics Normal for Patient Stool Color Brown Brown Brown Jamie Colored # Voids 1 1 # Bowel Movements 1 - General Appearance General appearance: Present: well-developed, well-nourished, cachectic, chronically ill, frail EENT: Present: ATNC Neck: Present: supple Additional Comments: RESPIRATIONs are unlabored. Cardiology: Present: regular rate Neurologic: Present: alert and oriented x3 Psychiatric: Present: mood/affect appropriate - Lab 01/25/17 03:48 01/25/17 03:48 Most recent lab results Calcium 6.9 mg/dL (8.6-10.8) L 01/25/17 03:48 Phosphorus 1.3 mg/dL (2.3-4.7) L 01/24/17 05:24 Magnesium 1.4 mg/dL (1.6-2.6) L 01/25/17 03:48 Urine Sodium < 20.0 mEq/L 01/21/17 04:08 Consult Discharge Plan - Plan Referrals: Vane Araujo, KETTLE OPERATOR [Primary Care Provider] -
--- NOTE | 2017-01-25 16:08 | Internal Med Progress Note ---
Date of Encounter: 01/25/17 Time of Encounter: 11:50 - Assessment and plan (1) Ascites Current Visit: Yes Status: Acute Assessment and plan: likely secondary to chronic liver disease in setting of patient with history of alcohol use, thrombocytopenia and hyponatreami in setting of likely beer potomania and fluid overload secondary to edema. S/P paracentesis. No paracentesis needed at this time. Sodium level decreased today, SSRI stopped, follow nephro input. Continue with diuretics and monitor electrolytes and renal function tests. GI consult. Avoid nephrotoxic agents. Aldactone and lasix po PT eval. Alcohol cessation was stressed. D/W patient in detail. D/C planning. Qualifiers: Ascites type: other type Qualified Code(s): R18.8 - Other ascites (2) DVT prophylaxis Current Visit: Yes Status: Acute (3) History of alcohol abuse Current Visit: Yes Status: Acute (4) Hypokalemia Current Visit: Yes Status: Acute Assessment and plan: Continue monitoring. hypomagnesemia noted, supplement today and continue monitoring. . (5) Hyponatremia Current Visit: Yes Status: Acute Assessment and plan: Nephro input noted. (6) Thrombocytopenia Current Visit: Yes Status: Acute - Time Spent With Patient 25 - 35 minutes - Subjective Interval history: patient seen and examined. denied fever or chest pain. not in distress. breathing ambient air. feels better today. no abd pain. - Constitutional Vitals: Temp Pulse Resp BP Pulse Ox 98.2 F 89 18 96/62 97 01/25/17 15:40 01/25/17 15:40 01/25/17 15:40 01/25/17 15:40 01/25/17 15:40 General appearance: Present: cooperative, disheveled, A&O X 3, pleasant Exam: alert, follows commands. abd with ascites, non tender. - Head Head exam: Present: atraumatic, normocephalic - Eye Eye exam: Present: PERRL, conjuntiva pink, sclera anicteric Pupils: Present: PERRL - Neck Neck exam general surgery: Present: supple, trachea midline. Absent: lymphadenopathy - Respiratory Respiratory exam: Present: CTAB. Absent: accessory muscle use, rales, rhonchi, wheezes - Cardiovascular Cardiovascular exam: Present: RRR, +S1, +S2. Absent: diastolic murmur, gallop, rubs, systolic murmur - GI/Abdominal GI/Abdominal exam: Present: normal bowel sounds, soft, no peritoneal signs. Absent: distended, tenderness - Extremities Exam Extremities exam: Present: warm, radial pulses palpable and symetrical. Absent : calf tenderness, cyanotic, pedal edema - Neurological Exam Neurological exam: Present: CN II-XII intact, oriented X3, no focal deficits. Absent: pronater drift, facial droop, speech deficit - Skin Skin exam: Present: dry, intact Internal Medicine: Result - Labs CBC & Chem 7: 01/25/17 03:48 01/25/17 03:48 Labs: Short CBC 01/25/17 Range/Units 03:48 WBC 2.6 L (4.3-11.1) K/mcL Hgb 8.3 L (12.9-16.9) g/dL Hct 23.5 L (37.5-50.1) % Plt Count 47 L (140-400) K/mcL Neutrophils # 1.5 L (1.6-8.9) K/mcL BMP 01/25/17 03:48 Sodium 120 L* Potassium 3.5 Chloride 90 L Carbon Dioxide 25 BUN 9 Creatinine 0.60 L Glucose 92 Calcium 6.9 L - ABG Interpretation ABG results: PT/INR, D-dimer PT 13.5 Seconds (9.4-12.1) H 01/24/17 05:24 Consult Discharge Plan - Plan Referrals: Vane Araujo, BROADCAST TRANSMITTER OPERATOR [Primary Care Provider] -
[2017-01-25] MEDS: Miconazole 2% ointment 114 GM TUBE TP SCH ×2 (18:39→21:17)
[2017-01-26 05:46] LABS: Basophils % 0.3 %; Hemoglobin 8.4 g/dL (12.9-16.9); Immature Granulocytes % 0.3 % (0-4); Mean Platelet Volume 11.1 fL (9.4-12.4)
[2017-01-26 05:48] LABS: Hematocrit 22.9 % (37.5-50.1); Immature Platelets 9.5 % (1.1-6.1); Lymphocytes # 0.7 K/mcL (0.6-4.6); Lymphocytes % 23.5 %; Mean Corpuscular HGB Conc 36.7 g/dL (31.6-35.5); Mean Corpuscular Hemoglobin 38.4 pg (28.0-33.3); Mean Corpuscular Volume 104.6 fL (83.0-100.0); Monocytes # 0.4 K/mcL (0.0-1.3); Red Blood Count 2.19 M/mcL (4.19-5.50); Red Cell Distribution Width 12.3 % (11.5-14.5); Segmented Neutrophils % 59.9 %
[2017-01-26 05:50] LABS: Neutrophils # 1.7 K/mcL (1.6-8.9); Platelet Count 63 K/mcL (140-400)
[2017-01-26 06:01] LABS: BUN/Creatinine Ratio 13 (6-26); Blood Urea Nitrogen 7 mg/dL (8-26); Calcium 7.4 mg/dL (8.6-10.8); Carbon Dioxide 23 mEq/L (19-29); Chloride 93 mEq/L (98-109); Glucose 87 mg/dL (70-99); Magnesium 1.9 mg/dL (1.6-2.6); Osmolality,Calculated 251 (280-300); Phosphorous 1.6 mg/dL (2.3-4.7); Potassium 3.5 mEq/L (3.5-4.5); Sodium 122 mEq/L (136-145); eGFR For African Americans > 60 (> 60); eGFR For Non-African Americans > 60 (> 60)
[2017-01-26] MEDS: Multivit/Ca/Min/Fe/FA 1 TAB TABLET PO SCH (09:12)
[2017-01-26] MEDS: Magnesium Oxide 400 MG TABLET PO SCH ×2 (09:12→19:58)
[2017-01-26] MEDS: Spironolactone 25 MG TABLET PO SCH (09:12)
[2017-01-26] MEDS: Furosemide 40 MG TABLET PO SCH (09:12)
[2017-01-26] MEDS: Miconazole 2% ointment 114 GM TUBE TP SCH ×2 (09:23→19:58)
[2017-01-26] MEDS: Budesonide/Formoterol 80/4.5 MDI IH SCH ×2 (09:37→22:45)
--- NOTE | 2017-01-26 10:06 | Nephrology Progress Note ---
Date of Encounter: 01/26/17 Time of Encounter: 10:04 - Assessment and Plan (1) Hyponatremia Current Visit: Yes Status: Acute Patient with hypervolemic hyponatremia that was improving with fluid restriction and furosemide. He is feeling better and ambulating more. Pharmacy changed iv carrier solution to 0.9 with a subsequent increase in plasma sodium level. (2) Ascites Current Visit: Yes Status: Acute furosemide and spironolactone. Qualifiers: Ascites type: other type Qualified Code(s): R18.8 - Other ascites (3) Hypokalemia Current Visit: Yes Status: Acute Replace as needed and follow. On spironolactone. (4) Hypophosphatemia Current Visit: Yes Status: Acute Replace as needed and follow. Subjective Principal diagnosis: Hyponatremia, edema, ascites Interval history: Patient seen and evaluated. He has no new complaints. His appetite is improving slightly. ROS otherwise stable. Objective - Vital Signs Vital signs: Vital Signs Temp Pulse Resp BP Pulse Ox 01/26/17 09:37 16 99 01/26/17 07:53 97.9 F 80 16 106/66 98 01/26/17 04:09 98.2 F 89 17 103/63 96 01/25/17 21:12 15 96 01/25/17 19:15 97.8 F 84 15 118/80 100 01/25/17 15:40 98.2 F 89 18 96/62 97 Intake and Output 01/25/17 01/26/17 01/26/17 23:59 07:59 15:59 Output Total 400 / 400 200 / 200 175 / 175 Balance -400 / -400 -200 / -200 -175 / -175 Output: Urine 400 / 400 200 / 200 175 / 175 Other: Meal Dinner Percent of Meal Consumed 10% Stool Size Small Large Large Stool Consistency loose soft soft Stool Color Brown Brown Brown # Voids 1 # Bowel Movements 1 1 - General Appearance General appearance: Present: well-developed, well-nourished EENT: Present: ATNC Neck: Present: supple Respiratory: Present: clear Cardiology: Present: edema, regular rate, regular rhythm Gastrointestinal: Present: normoactive bowel sounds Integumentary: Present: warm and dry Neurologic: Present: alert and oriented x3 Musculoskeletal: Present: no cyanosis Psychiatric: Present: mood/affect appropriate - Lab 01/26/17 04:39 01/26/17 04:39 Most recent lab results Calcium 7.4 mg/dL (8.6-10.8) L 01/26/17 04:39 Phosphorus 1.6 mg/dL (2.3-4.7) L 01/26/17 04:39 Magnesium 1.9 mg/dL (1.6-2.6) 01/26/17 04:39 Urine Sodium < 20.0 mEq/L 01/21/17 04:08 Consult Discharge Plan - Plan Referrals: Vane Araujo, KITCHEN AIDE [Primary Care Provider] -
[2017-01-26] MEDS ORDERED: Spironolactone 25 MG TABLET PO SCH (10:07)
[2017-01-26] MEDS: SODIUM CHLORIDE 0.9% IVPB SCH (11:39)
[2017-01-26] MEDS: CEFTRIAXONE IVPB SCH (11:39)
--- NOTE | 2017-01-26 13:51 | Internal Med Progress Note ---
Date of Encounter: 01/26/17 Time of Encounter: 11:45 - Assessment and plan (1) Ascites Current Visit: Yes Status: Acute Assessment and plan: likely secondary to chronic liver disease in setting of patient with history of alcohol use, thrombocytopenia and hyponatreamia in setting of likely beer potomania and fluid overload secondary to edema. S/P paracentesis. No paracentesis needed at this time. Sodium level improved, solution in iv meds was switched to NS, SSRI stopped, follow nephro input. Continue with diuretics and monitor electrolytes and renal function tests. Aldactone increased. GI consult. Avoid nephrotoxic agents. Aldactone and lasix po PT eval. Alcohol cessation was stressed. D/W patient in detail. Continue with IV antibiotics as per wound culture. D/C planning, likely D/C tomorrow to ECF if stable. Qualifiers: Ascites type: other type Qualified Code(s): R18.8 - Other ascites (2) DVT prophylaxis Current Visit: Yes Status: Acute (3) History of alcohol abuse Current Visit: Yes Status: Acute (4) Hypokalemia Current Visit: Yes Status: Acute (5) Hyponatremia Current Visit: Yes Status: Acute (6) Thrombocytopenia Current Visit: Yes Status: Acute - Subjective Interval history: patient seen and examined. denied fever or chest pain. not in distress. breathing ambient air. feels better today. no abd pain. no dysuria. - Constitutional Vitals: Temp Pulse Resp BP Pulse Ox 97.6 F 77 16 105/70 98 01/26/17 10:36 01/26/17 10:36 01/26/17 10:36 01/26/17 10:36 01/26/17 10:36 General appearance: Present: cooperative, disheveled, A&O X 3, pleasant - Head Head exam: Present: atraumatic, normocephalic - Eye Eye exam: Present: PERRL, conjuntiva pink, sclera anicteric Pupils: Present: PERRL - Neck Neck exam general surgery: Present: supple, trachea midline. Absent: lymphadenopathy - Respiratory Respiratory exam: Present: CTAB. Absent: accessory muscle use, rales, rhonchi, wheezes - Cardiovascular Cardiovascular exam: Present: RRR, +S1, +S2. Absent: diastolic murmur, gallop, rubs, systolic murmur - GI/Abdominal GI/Abdominal exam: Present: normal bowel sounds, soft, no peritoneal signs. Absent: distended, tenderness - Extremities Exam Extremities exam: Present: warm, radial pulses palpable and symetrical. Absent : calf tenderness, cyanotic, pedal edema - Neurological Exam Neurological exam: Present: CN II-XII intact, oriented X3, no focal deficits. Absent: pronater drift, facial droop, speech deficit - Skin Skin exam: Present: dry, intact Internal Medicine: Result - Labs CBC & Chem 7: 01/26/17 04:39 01/26/17 04:39 Labs: Short CBC 01/26/17 Range/Units 04:39 WBC 2.9 L (4.3-11.1) K/mcL Hgb 8.4 L (12.9-16.9) g/dL Hct 22.9 L (37.5-50.1) % Plt Count 63 L (140-400) K/mcL Neutrophils # 1.7 (1.6-8.9) K/mcL BMP 01/26/17 04:39 Sodium 122 L Potassium 3.5 Chloride 93 L Carbon Dioxide 23 BUN 7 L Creatinine 0.56 L Glucose 87 Calcium 7.4 L - ABG Interpretation ABG results: PT/INR, D-dimer PT 13.5 Seconds (9.4-12.1) H 01/24/17 05:24 Consult Discharge Plan - Plan Referrals: Vane Araujo, GAUGE AND WEIGH MACHINE OPERATOR [Primary Care Provider] -
[2017-01-27 06:36] LABS: Basophils % 0.3 %; Eosinophils % 0.7 %; Hematocrit 24.2 % (37.5-50.1); Hemoglobin 8.5 g/dL (12.9-16.9); Immature Granulocytes % 0.7 % (0-4); Lymphocytes # 0.7 K/mcL (0.6-4.6); Lymphocytes % 23.8 %; Mean Corpuscular HGB Conc 35.1 g/dL (31.6-35.5); Mean Corpuscular Hemoglobin 37.6 pg (28.0-33.3); Mean Corpuscular Volume 107.1 fL (83.0-100.0); Mean Platelet Volume 10.8 fL (9.4-12.4); Monocytes # 0.4 K/mcL (0.0-1.3); Monocytes % 11.9 %; Neutrophils # 1.8 K/mcL (1.6-8.9); Red Blood Count 2.26 M/mcL (4.19-5.50); Red Cell Distribution Width 12.5 % (11.5-14.5); Segmented Neutrophils % 62.6 %
[2017-01-27 06:37] LABS: Platelet Count 81 K/mcL (140-400)
[2017-01-27 07:04] LABS: BUN/Creatinine Ratio 13 (6-26); Blood Urea Nitrogen 7 mg/dL (8-26); Calcium 7.2 mg/dL (8.6-10.8); Carbon Dioxide 22 mEq/L (19-29); Chloride 96 mEq/L (98-109); Glucose 82 mg/dL (70-99); Osmolality,Calculated 255 (280-300); Phosphorous 1.8 mg/dL (2.3-4.7); Potassium 3.6 mEq/L (3.5-4.5); Sodium 124 mEq/L (136-145); eGFR For African Americans > 60 (> 60); eGFR For Non-African Americans > 60 (> 60)
[2017-01-27 07:24] LABS: Platelet Estimate Slight Decrease (Normal)
[2017-01-27] MEDS: Magnesium Oxide 400 MG TABLET PO SCH (09:04)
[2017-01-27] MEDS: Multivit/Ca/Min/Fe/FA 1 TAB TABLET PO SCH (09:04)
[2017-01-27] MEDS: SODIUM CHLORIDE 0.9% IVPB SCH (09:05)
[2017-01-27] MEDS: CEFTRIAXONE IVPB SCH (09:05)
[2017-01-27] MEDS: Furosemide 40 MG TABLET PO SCH (09:06)
--- NOTE | 2017-01-27 09:18 | Discharge Summary ---
Date of Encounter: 01/27/17 Time of Encounter: 09:12 - Discharge Diagnosis (1) Ascites Priority: Primary Status: Acute Qualifiers: Ascites type: other type Qualified Code(s): R18.8 - Other ascites (2) DVT prophylaxis Priority: Secondary Status: Acute (3) History of alcohol abuse Priority: Secondary Status: Acute (4) Hypokalemia Priority: Secondary Status: Acute (5) Hyponatremia Priority: Secondary Status: Acute (6) Thrombocytopenia Priority: Secondary Status: Acute - Discharge Medications Prescriptions: Ciprofloxacin [Cipro] 500 mg PO BID 7 Days Furosemide [Lasix] 40 mg PO DAILY 30 Days Magnesium Oxide [Mag-Ox] 400 mg PO BID 30 Days Miconazole 2% ointment [Aloe Dickerson Antifungal Ointment] 1 appl TP BID #1 tube Midodrine [ProAmatine] 5 mg PO 0800,1200,1700 30 Days Multivit/Ca/Min/Fe/FA [Thera M Plus] 1 tab PO DAILY 30 Days Omeprazole [PriLOSEC] 40 mg PO DAILY@30 30 Days Spironolactone [Aldactone] 125 mg PO DAILY 30 Days Thiamine HCl [Vitamin B-1] 50 mg PO DAILY 30 Days Home Medications: Ciprofloxacin [Cipro] 500 mg PO BID 7 Days 01/27/17 [Rx] Furosemide [Lasix] 40 mg PO DAILY 30 Days 01/27/17 [Rx] Magnesium Oxide [Mag-Ox] 400 mg PO BID 30 Days 01/27/17 [Rx] Miconazole 2% ointment [Aloe Dickerson Antifungal Ointment] 1 appl TP BID #1 tube [Rx] Midodrine [ProAmatine] 5 mg PO 0800,1200,1700 30 Days 01/27/17 [Rx] Multivit/Ca/Min/Fe/FA [Thera M Plus] 1 tab PO DAILY 30 Days 01/27/17 [Rx] Omeprazole [PriLOSEC] 40 mg PO DAILY@30 30 Days 01/27/17 [Rx] Spironolactone [Aldactone] 125 mg PO DAILY 30 Days 01/27/17 [Rx] Thiamine HCl [Vitamin B-1] 50 mg PO DAILY 30 Days 01/27/17 [Rx] Allergies/Adverse Reactions: Allergies No Known Allergies Allergy (Verified 08/21/16 11:02) Date of admission: 01/20/17 19:07 Primary care physician: Vane Araujo CNP Consults: 01/21/17 08:28 Consult to Interventional Radiology [CONS] Routine Consulting Provider: Radiology Interventional Cols Reason for Consult: abdominal distension, ascites on CT. Evaluation for para Call Completed: Yes 01/21/17 11:15 Consult to Hull Molder [CONS] Routine Reason for SW Consult: Concern for necessary resources given etoh abuse 01/22/17 08:34 Consult to Wound Care [CONS] Routine Reason for Consult: LLE wound Call Completed: No 01/24/17 12:36 Consult to Gastroenterology [CONS] Routine Consulting Provider: Gastroenterology Elsie Reason for Consult: chronic liver disease, ascites, history of heavy alcohol use Call Completed: No Discharging clinician: Anthony Sinha Anticipated date of discharge: 01/27/17 - Patient Status Disposition: Transfer SNF Condition: Fair Functional capacity at discharge: uses cane/walker Overall status at discharge: patient is progressing back to baseline - Discharge Instructions Follow Up With: Vane Araujo CNP [Primary Care Provider] - - Diet and Activity Activity: as per physical therapy Diet: low salt diet Interval History: Mr. Hilliard is a 61 year old male with prior medical history significant for depression, anxiety GERD, hyperlipidemia, and hypertension who came to the emergency room because of increased shortness of breath and weakness. He states he has had progressively worsening exertional dyspnea and dyspnea in general for several weeks now as well as weakness with onset 3 days ago. He states this got to the point or takes him 45 minutes to get out of his chair. He reports that prior to this he has had a nonproductive cough for the past several weeks which sometimes results in some posttussive emesis. In this timeframe he also reports having increased abdominal swelling, but does not report any abdominal discomfort. He does report recent weight came up 13 pounds over the past couple months. He reports procedure drinking up to 12 beers a day, but over the past 5 years is reduced his quantity to about 2 beers a day. He has never previously seen a leather goods maker. At presentation to the emergency room is found to have a sodium level of 107, but no reports of seizure activity. Hospital course: Mr. Hilliard is a 61 year old male admitted due to SOB, and severe hyponatremia, both likely secondary to chronic liver disease in setting of patient with history of alcohol use, thrombocytopenia and hyponatreamia: beer potomania and fluid overload secondary to edema. S/P paracentesis, no evidence of SBP. No more paracentesis neded at this time, stable with diuretic therapy. Sodium improving, today is 124 and the patient is asymptomatic. Avoid SSRIs. Continue with diuretics with both aldactone and lasix, for management of his ascites. Fluid restriction. Will give po magnesium as well. GI follow up as outpatient. Avoid nephrotoxic agents. 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 REeceived rocephin while inhouse, will d/c him on cipro according to sensitivity. PT evaluation recommended placement. Alcohol cessation was stressed. D/W patient. - Time Spent with Patient Total time spent providing and/or coordinating discharge services: Greater than 30 minutes - Constitutional Vitals: Temp Pulse Resp BP Pulse Ox 97.6 F 80 15 116/77 96 01/27/17 07:26 01/27/17 07:26 01/27/17 07:26 01/27/17 07:26 01/27/17 07:26 General appearance: Present: cooperative, disheveled, A&O X 3, pleasant Exam: alert, weak, not in distress. bilateral wounds in lower extremities. pulses ok. No focal signs. No meningeal signs. - Head Head exam: Present: atraumatic, normocephalic - Eye Eye exam: Present: PERRL, conjuntiva pink, sclera anicteric Pupils: Present: PERRL - Neck Neck exam general surgery: Present: supple, trachea midline. Absent: lymphadenopathy - Respiratory Respiratory exam: Present: CTAB. Absent: accessory muscle use, rales, rhonchi, wheezes - Cardiovascular Cardiovascular exam: Present: RRR, +S1, +S2. Absent: diastolic murmur, gallop, rubs, systolic murmur - GI/Abdominal GI/Abdominal exam: Present: normal bowel sounds, no peritoneal signs. Absent: distended, tenderness Additional comments: ascites noted. - Extremities Exam Extremities exam: Present: warm, radial pulses palpable and symetrical. Absent : calf tenderness, cyanotic, pedal edema - Neurological Exam Neurological exam: Present: CN II-XII intact, oriented X3, no focal deficits. Absent: pronater drift, facial droop, speech deficit - Skin Skin exam: Present: dry, intact
--- NOTE | 2017-01-27 09:33 | Physician Discharge Referral ---
ExtendedCare Referral Info Transfer To: Inpatient rehab Provider in Charge after Transfer: PCP Institutional Level of Care: Skilled - Diagnosis (1) Ascites Status: Acute (2) DVT prophylaxis Status: Acute (3) History of alcohol abuse Status: Acute (4) Hypokalemia Status: Acute (5) Hyponatremia Status: Acute (6) Thrombocytopenia Status: Acute - Transfer Medications Prescriptions: Ciprofloxacin [Cipro] 500 mg PO BID 7 Days Furosemide [Lasix] 40 mg PO DAILY 30 Days Magnesium Oxide [Mag-Ox] 400 mg PO BID 30 Days Miconazole 2% ointment [Aloe Bliss Antifungal Ointment] 1 appl TP BID #1 tube Midodrine [ProAmatine] 5 mg PO 0800,1200,1700 30 Days Multivit/Ca/Min/Fe/FA [Thera M Plus] 1 tab PO DAILY 30 Days Omeprazole [PriLOSEC] 40 mg PO DAILY@0630 30 Days Spironolactone [Aldactone] 125 mg PO DAILY 30 Days Thiamine HCl [Vitamin B-1] 50 mg PO DAILY 30 Days Home Medications: Ciprofloxacin [Cipro] 500 mg PO BID 7 Days 01/27/17 [Rx] Furosemide [Lasix] 40 mg PO DAILY 30 Days 01/27/17 [Rx] Magnesium Oxide [Mag-Ox] 400 mg PO BID 30 Days 01/27/17 [Rx] Miconazole 2% ointment [Aloe Bliss Antifungal Ointment] 1 appl TP BID #1 tube [Rx] Midodrine [ProAmatine] 5 mg PO 0800,1200,1700 30 Days 01/27/17 [Rx] Multivit/Ca/Min/Fe/FA [Thera M Plus] 1 tab PO DAILY 30 Days 01/27/17 [Rx] Omeprazole [PriLOSEC] 40 mg PO DAILY@0630 30 Days 01/27/17 [Rx] Spironolactone [Aldactone] 125 mg PO DAILY 30 Days 01/27/17 [Rx] Thiamine HCl [Vitamin B-1] 50 mg PO DAILY 30 Days 01/27/17 [Rx] Allergies/Adverse Reactions: Allergies No Known Allergies Allergy (Verified 08/21/16 11:02) - Respiratory Orders Smoking Cessation: Smoking cessation has been advised. For more information, call the [employer] Tobacco Quit Line at 0-115-[facility]-NOW. - Advance Directives Code Status: Full Code - Mobility Orders Other (As per PT. Fall precautions.) - Rehabiliation Orders Rehab Orders: ROM Exercises, Evaluation for Physical Therapy, Evaluation for Occupational Therapy - Treatments May check for fecal impaction rectally daily PRN - Diet Orders No Added Salt (BRAT) CERTIFICATION: I certify that the transfer of the above named patient to an Extended Care Facility is necessary for the continuing treatment of the diagnosis listed. The above information is true and accurate reflection of patient's current condition. Confidential - Redisclosure prohibited without a patient's written consent.
[2017-01-27 09:56] LABS: INR 1.2; Prothrombin Time 13.2 Seconds (9.4-12.1)
[2017-01-27 10:09] LABS: Albumin 2.3 g/dL (3.5-5.0); Albumin/Globulin Ratio 0.8 (1.1-2.2); Bilirubin,Direct 1.3 mg/dL (0.0-0.5); Bilirubin,Indirect 0.6 mg/dL (0.0-1.2); Bilirubin,Total 1.9 mg/dL (0.2-1.2); Globulin 2.9 g/dL (2.4-3.5); Total Protein 5.2 g/dL (6.0-8.3)
[2017-01-27] MEDS: Budesonide/Formoterol 80/4.5 MDI IH SCH (11:09)
--- NOTE | 2017-01-27 11:17 | Nephrology Progress Note ---
Date of Encounter: 01/27/17 Time of Encounter: 11:14 - Assessment and Plan (1) Hyponatremia Current Visit: Yes Status: Acute Patient with hypervolemic hyponatremia that was improving with fluid restriction and furosemide. He is feeling better and ambulating more. Pharmacy changed iv carrier solution to 0.9 with a subsequent increase in plasma sodium level. Ok for discharge from renal standpoint. (2) Ascites Current Visit: Yes Status: Acute furosemide and spironolactone. Qualifiers: Ascites type: other type Qualified Code(s): R18.8 - Other ascites (3) Hypokalemia Current Visit: Yes Status: Acute Replace as needed and follow. On spironolactone. (4) Hypophosphatemia Current Visit: Yes Status: Acute Replace as needed and follow. Subjective Principal diagnosis: Hyponatremia, edema, ascites Interval history: Patient seen. He is asleep. Objective - Vital Signs Vital signs: Vital Signs Temp Pulse Resp BP Pulse Ox 01/27/17 10:45 97.7 F 73 14 114/73 97 01/27/17 07:26 97.6 F 80 15 116/77 96 01/27/17 04:47 98.5 F 85 16 97/61 97 01/27/17 00:50 98.4 F 85 14 105/61 96 01/26/17 22:45 16 96 01/26/17 20:13 98.6 F 86 14 99/57 97 01/26/17 15:14 98.3 F 83 18 109/70 98 Intake and Output 01/26/17 01/27/17 01/27/17 23:59 07:59 15:59 Intake Total 0 / 0 0 / 0 120 / 120 Output Total 100 / 100 675 / 675 150 / 150 Balance -100 / -100 -675 / -675 -30 / -30 Intake: Oral 0 / 0 0 / 0 120 / 120 Output: Urine 100 / 100 675 / 675 0 / 0 Urine/Stool Mix 150 / 150 Other: Meal Dinner Breakfast Percent of Meal Consumed 10% 5% Stool Size Large Stool Consistency loose soft Stool Color Brown # Bowel Movements 0 0 Weight 81.3 kg Patient Weight 01/27/17 23:59 Weight 81.3 kg - General Appearance General appearance: Present: well-developed, well-nourished EENT: Present: ATNC Additional Comments: respirations are unlabored. Cardiology: Present: regular rate Additional Comments: patient asleep. - Lab 01/27/17 05:29 01/27/17 05:29 Most recent lab results Calcium 7.2 mg/dL (8.6-10.8) L 01/27/17 05:29 Phosphorus 1.8 mg/dL (2.3-4.7) L 01/27/17 05:29 Magnesium 1.9 mg/dL (1.6-2.6) 01/26/17 04:39 Urine Sodium < 20.0 mEq/L 01/21/17 04:08 Consult Discharge Plan - Plan Referrals: Vane Araujo, BONDING EQUIPMENT OPERATOR [Primary Care Provider] - Prescriptions: Ciprofloxacin [Cipro] 500 mg PO BID 7 Days Furosemide [Lasix] 40 mg PO DAILY 30 Days Magnesium Oxide [Mag-Ox] 400 mg PO BID 30 Days Miconazole 2% ointment [Aloe [place] Antifungal Ointment] 1 appl TP BID #1 tube Midodrine [ProAmatine] 5 mg PO 0800,1200,1700 30 Days Multivit/Ca/Min/Fe/FA [Thera M Plus] 1 tab PO DAILY 30 Days Omeprazole [PriLOSEC] 40 mg PO DAILY@0630 30 Days Spironolactone [Aldactone] 125 mg PO DAILY 30 Days Thiamine HCl [Vitamin B-1] 50 mg PO DAILY 30 Days
[2017-01-27] MEDS ORDERED: Sodium Phosphate 30 MMOL in D5% in Water 100 ML IVPB ONE (11:24)
--- NOTE | 2017-01-27 12:05 | Gastroenterology Consult Note ---
Date of Encounter: 01/27/17 Time of Encounter: 11:00 - Assessment and plan (1) Ascites Current Visit: Yes Status: Acute Assessment and plan: Likely secondary to cirrhosis in the setting of patient with history of alcohol use, thrombocytopenia, hyponatremia. Patient s/p paracentesis 2. Continue Lasix and Aldactone. On admission MELD 26, Child Nair class C, DF 10.4. Today MELD 22, Child Nair class B, DF 14.3. Liver workup including Alpha-1 antitrypsin , AFP, AMA, F-actin, ANCA pending. Hepatitis profile and KATELYNN negative. Ferritin elevated at 511, check hemochromatosis panel. Last EGD 08/21/2016 with medium size hiatal hernia. Liver ultrasound showed fatty liver, no mass. CT A/P showed large volume ascites and fatty liver. Lifestyle Changes: 1. Total abstinence from alcohol including social drinking. 2. No smoking 3. Gradual loss of weight 4. Drink at least 3 cups of coffee due to its antioxidant effects in the liver, it reduces risk of HCC and advance fibrosis 5. If needed, use less than 2 g/day of Tylenol (in divided doses). 6. Vaccination for Hep A, B, Pneumococcus if not already received and yearly influenza vaccination by PCP 7. Avoid NSAIDS as can cause kidney damage 8. Avoid benzodiazepines and other sedatives such as anti-histamines, narcotics etc. as can cause encephalopathy or confusion 9. Take a late carbohydrate meal supplement as it reduces glucose production from protein breakdown and thus improves nutrition. Qualifiers: Ascites type: other type Qualified Code(s): R18.8 - Other ascites (2) History of alcohol abuse Current Visit: Yes Status: Acute (3) Thrombocytopenia Current Visit: Yes Status: Acute - Time Spent With Patient Total time spent is greater than 50% in coordination of care (as documented) at patient's floor/unit and/or counseling patient: GI History of Present Illness - Data of Consult Patient: new to practice Consult date: 01/27/17 Requesting Physician: Anthony Sinha - Consult Narrative Reason for consult: Liver disease, heavy ETOH use History of present illness: Mr. Hilliard is a 61 year old male with PMHx of GERD, HLD, HTN, anxiety who presented to the ED with SOB and weakness. He reported increased abdominal swelling, but denies abdominal pain. He also reported weight gain of 13 pounds in the past couple months. Pt admits to history of heavy ETOH abuse, drinking up to 12 beers daily, but states he decreased to 1-2 beers daily in the past 5 years. In the ED his sodium was found to be 107, no reports of seizure activity. Pt underwent paracentesis on 01/21 with 4L of fluid removed, negative for SBP. Paracentesis was completed again on 01/22. He was started on Lasix 40 mg daily and Aldactone 125 mg daily. Hepatitis profile and KATELYNN negative. Procedures: Colonoscopy 08/21/2016 Dr. Garcia with diverticulosis, three 5-10mm tubular adenoma, repeat in 3 years. EGD 08/21/2016 Dr. Garcia with medium sized hiatal hernia. NSAIDs: None Anticoagulation: None Past Med Surg Social Fam HX - Past Medical History Medical history: GERD, hyperlipidemia, hypertension Psychiatric history: anxiety, depression - Social History Smoking Status: Current every day smoker Smokeless Tobacco Status: No Alcohol use: heavy Drug use: none - Family History Mother Name: Leonor Living Status: Age at : 73 Cause of : diabetes and heart disease Hx Family Cardiac Disorders: Yes Hx Family Respiratory Disorders: No Hx Family Cancer: No Hx Family GI Disorders: No Hx Family Genitourinary Disorders: No Hx Family Endocrine Disorder: Yes Hx Family Musculoskeletal Disorders: No Hx Family Neuromuscular Disorders: No Hx Family Neurologic Disorders: No Hx Family HEENT Disorders: No Hx Family Autoimmune Disorders: No Hx Family Reproductive Disorders: No Hx Family Psychosocial Disorders: No Hx Family Medical Disorders: No - Gastrointestinal Gastrointestinal: Present: as per HPI - Constitutional Constitutional: as per HPI - EENT Eyes: as per HPI Ears: Present: as per HPI Nose, mouth and throat: Present: as per HPI - Cardiovascular Cardiovascular ROS: Present: as per HPI - Respiratory Respiratory IM: Present: as per HPI - Genitourinary Genitourinary: Absent: change in color, Urinary frequency - Neurological ROS Neurological GI: Present: as per HPI - Hematologic/Lymphatic Hematologic/Lymphatic pediatric: Present: as per HPI - Musculoskeletal Musculoskeletal ROS GI: Present: as per HPI - Integumentary Integumentary GI: Present: as per HPI - Psychiatric ROS Psychiatric GI: Present: as per HPI - Endocrine Endocrine IM: Present: as per HPI - Constitutional Vitals: Temp Pulse Resp BP Pulse Ox 97.7 F 73 14 114/73 97 01/27/17 10:45 01/27/17 10:45 01/27/17 10:45 01/27/17 10:45 01/27/17 10:45 General appearance: Present: cooperative, A&O X 3, no acute distress, answers questions appropriately - Head Head exam: Present: atraumatic, normocephalic - Eye Eye exam: Present: normal appearance, sclera anicteric - ENT ENT exam: Present: mucous membranes moist - Neck Neck exam general surgery: Present: normal inspection, trachea midline - Respiratory Respiratory exam: Present: CTAB. Absent: rales, rhonchi - Cardiovascular Cardiovascular exam: Present: RRR, +S1, +S2 - GI/Abdominal GI/Abdominal exam: Present: distended, normal bowel sounds, soft, no peritoneal signs. Absent: firm, guarding, tenderness - Expanded GI/Abdominal Exam GI/Abdominal exam expanded: Present: ascites - Rectal Rectal exam: Present: deferred - Extremities Exam Extremities exam: Present: warm - Neurological Exam Neurological exam: Present: no focal deficits - Psychiatric Psychiatric exam: Present: normal affect, normal mood - Skin Skin exam: Present: dry, intact, normal color, warm Results - Labs CBC & Chem 7: 01/27/17 05:29 01/27/17 05:29 Labs: Last Result Calcium 7.2 mg/dL (8.6-10.8) L 01/27/17 05:29 Ferritin 511 ng/ml (22-275) H 01/27/17 09:23 Troponin I 0.01 ng/mL (0-0.03) 01/20/17 13:03 Peritoneal Appearance CLEAR (Clear) 01/21/17 08:55 Peritoneal Volume 65.0 mL 01/21/17 08:55 Peritoneal pH 7.47 pH Units (No Ref Range) 01/21/17 08:55 Peritoneal RBC < 0.002 M/mcL (0.000-0.002) 01/21/17 08:55 Periton Tot Nuc Cells 45 TNC/mcL (0-300) 01/21/17 08:55 Periton Band Neuts Test Not Performed 01/21/17 08:55 Periton Lymphocytes % 71.0 % 01/21/17 08:55 Periton Monocytes % 13.0 % 01/21/17 08:55 Periton Other Cells % 4.0 % 01/21/17 08:55 Peritoneal Tot Protein 0.8 g/dL (No Ref Range) 01/21/17 08:55 Peritoneal Albumin 0.4 g/dL (No Ref Range) 01/21/17 08:55 Peritoneal LDH 30 Units/L (No Ref Range) 01/21/17 08:55 Peritoneal Glucose 74 mg/dL (No Ref Range) 01/21/17 08:55 Peritoneal Amylase 17 Units/L (No Ref Range) 01/21/17 08:55 Peritoneal Cholesterol 27 mg/dL (No Ref Range) 01/21/17 08:55 Peritoneal Triglycerid 38 mg/dL (No Ref Range) 01/21/17 08:55 Entire Visit Hgb 8.5 g/dL (12.9-16.9) L 01/27/17 05:29 Hct 24.2 % (37.5-50.1) L 01/27/17 05:29 PT 13.2 Seconds (9.4-12.1) H 01/27/17 09:23 Ferritin 511 ng/ml (22-275) H 01/27/17 09:23 Total Bilirubin 1.9 mg/dL (0.2-1.2) H 01/27/17 09:23 AST 76 Units/L (5-34) H 01/27/17 09:23 ALT 39 Units/L (0-55) 01/27/17 09:23 Ammonia 21 mcmol/L (18-72) 01/20/17 13:03 Amylase 57 Units/L (25-125) 01/20/17 16:57 Lipase 63 Units/L (8-78) 01/20/17 16:57 - ABG ABG results: PT/INR, D-dimer PT 13.2 Seconds (9.4-12.1) H 01/27/17 09:23 Consult Discharge Plan - Plan Referrals: Vane Araujo, OFFICE SERVICES ASSISTANT [Primary Care Provider] - Prescriptions: Ciprofloxacin [Cipro] 500 mg PO BID 7 Days Furosemide [Lasix] 40 mg PO DAILY 30 Days Magnesium Oxide [Mag-Ox] 400 mg PO BID 30 Days Miconazole 2% ointment [Aloe [place] Antifungal Ointment] 1 appl TP BID #1 tube Midodrine [ProAmatine] 5 mg PO 0800,1200,1700 30 Days Multivit/Ca/Min/Fe/FA [Thera M Plus] 1 tab PO DAILY 30 Days Omeprazole [PriLOSEC] 40 mg PO DAILY@0630 30 Days Spironolactone [Aldactone] 125 mg PO DAILY 30 Days Thiamine HCl [Vitamin B-1] 50 mg PO DAILY 30 Days
[2017-01-27] MEDS: Miconazole 2% ointment 114 GM TUBE TP SCH (14:11)
[2017-01-27 14:22] VITALS: BP 102/62
[2017-01-27] MEDS ORDERED: 0.9 % Sodium Chloride 250 ML ONE (15:42)
[2017-01-28 14:49] LABS: AFP Tumor Marker Non-Pregnant 5 ng/mL (0-9)
[2017-01-28 14:50] LABS: Alpha-1-Antitrypsin 172 mg/dL (90-200)
[2017-01-29 13:04] LABS: F-Actin (sm muscle) Ab IgG 19 Units (0-19)
[2017-01-31 10:49] LABS: C282Y Hemochromatosis Mutation NEGATIVE; H63D Hemochromatosis Mutation HETEROZYGOUS; HFE Specimen Type WHOLE BLOOD; S65C Hemochromatosis Mutation NEGATIVE
== END 2017-01-27 18:24 | DRG 264 ==
LOC: EMEROO 11:42 → ICNU 11:42 → SUATTDRO 19:07 → 3ANU 01-24 01:46
PROVIDERS: ADMIT Internal Medicine Pulmonary Disease; ATTEND Internal Medicine